=== PATIENT | female | born 1975 | race Caucasian/White ===

== ENCOUNTER 2016-11-09 15:46 | Inpatient (IN) | payer OTHER ==
[2016-11-09] MEDS: ALBUTEROL SO4 2.5/IPRATROPIUM 0.5 INH SOL 3 ML VIAL.NEB. NEB SCH ×7 (16:00→19:32)
--- NOTE | 2016-11-09 16:11 | PDOC ---
History of Present Illness - General Chief Complaint: Asthma Stated Complaint: SOB (ASTHMA) Time Seen by Provider: 11/09/16 16:11 - History of Present Illness Initial Comments: 11/09/16 20:21 41-year-old female with history of poorly controlled asthma, hypertension ( noncompliant) presents with worsening shortness of breath for the past 4 days that became significantly worse on day of admission despite using frequent albuterol MDI the patient board from her mother. In the ER, patient is awake and alert, morbidly obese, tachypneic and tachycardic, hypoxemic with oxygen saturation of 82% on room air requiring Ventimask at 40% FiO2 to maintain oxygen saturation 40%. Patient's received numerous Combivent nebulizers, prednisone-60 mg by mouth as well as 2 g of magnesium sulfate without significant improvement. Patient is also noted to be tachycardic and hypertensive. Chest x-ray reveals cardiomegaly without evidence of acute pulmonary edema. Nitroglycerin drip was initiated for suspected hypertensive emergency. ABG obtained on the Ventimask, revealed hypercapnia with pCO2 of 62 and mild acidosis. Patient was consequently placed on BiPAP with settings of 15/ 7 and 40% FiO2. D-dimer obtained was noted to be elevated and patient received a dose of 110 mg of Lovenox subcutaneous (the benefits of treating suspected PE at this time outweigh the risk of hemorrhage). Patient is unstable at this time for a CTA of chest. Bedside echocardiogram revealed no evidence of pericardial effusion. Will continue with albuterol nebulizers, will continue with nitroglycerin drip, will admit to the ICU. Past History - Past Medical History Allergies/Adverse Reactions: Allergies Allergy/AdvReac Type Severity Reaction Status Date / Time No Known Allergies Allergy Verified 11/09/16 15:48 Home Medications: Ambulatory Orders Albuterol Sulfate Inhaler - [Ventolin HFA Inhaler -] 1 - 2 inh PO Q4H 08/15/14 Salmeterol/Fluticasone [Advair 100Mcg/50Mcg -] 1 inh PO BID 08/15/14 Ceftriaxone [Rocephin -] 2 gm IVPB DAILY #11 vial 08/22/14 Calcitriol [Calcitriol -] 0.5 mcg PO BID #14 capsule 08/23/14 Calcium Acetate [Phoslo -] 1,334 mg PO TIDCM #20 capsule 08/23/14 Diltiazem Cd [Cardizem Cd -] 240 mg PO DAILY #14 cap.cd.24h 08/23/14 Magnesium Oxide 400 mg PO DAILY #7 tablet 08/23/14 Prednisone [Deltasone -] 20 mg PO DAILY #2 tablet 08/23/14 Asthma: Yes - Surgical History Cholecystectomy: Yes - Psycho/Social/Smoking Cessation Hx Anxiety: No Suicidal Ideation: No Smoking Status: No (Both mother and brother smoke.) Smoking History: Never smoked Have you smoked in the past 12 months: No Hx Alcohol Use: No Drug/Substance Use Hx: No Substance Use Type: None Hx Substance Use Treatment: No *Physical Exam - Vital Signs Last Vital Signs Temp Pulse Resp BP Pulse Ox 98.4 F 127 H 28 H 208/128 80 L 11/09/16 15:48 11/09/16 15:48 11/09/16 15:48 11/09/16 15:48 11/09/16 15:48 ED Treatment Course - LABORATORY CBC & Chemistry Diagram: 11/09/16 17:41 11/09/16 17:41 Medical Decision Making - Critical Care Time Total Critical Care Time (minutes): 55 Critical Care Statement: The care of this patient involved high complexity decision making to prevent further life threatening deterioration of the patient 's condition and/or to evalute & treat vital organ system(s) failure or risk of failure. - Medical Decision Making 11/09/16 21:29 Patient reassessed. Patient appears more awake and alert on BiPAP. In title CO2 is noted to be 32. Lung evaluation reveals decreased air entry bilaterally with intermittent and expiratory wheezing. But it is improved from previous evaluation. Patient's oxygen saturation on 40% FiO2 is noted to be 95%. Last blood pressure is noted to be 144/99. Will continue with a nitroglycerin drip. Awaiting transfer to the ICU. *DC/Admit/Observation/Transfer Diagnosis at time of Disposition: Hypocalcemia Status asthmaticus Qualifiers: Asthma severity: severe persistent Qualified Code(s): J45.52 - Severe persistent asthma with status asthmaticus Hypertension Qualifiers: Hypertension type: unspecified Qualified Code(s): I10 - Essential (primary) hypertension
[2016-11-09] MEDS ORDERED: predniSONE 20 MG TABLET (UD) PO ONE (16:22)
--- NOTE | 2016-11-09 16:29 | PDOC ---
History of Present Illness - General Chief Complaint: Asthma Stated Complaint: SOB (ASTHMA) Time Seen by Provider: 11/09/16 16:11 History Source: Patient - History of Present Illness Timing/Duration: reports: other Associated Symptoms: reports: shortness of breath, wheezing. denies: cough Past History - Past Medical History Allergies/Adverse Reactions: Allergies Allergy/AdvReac Type Severity Reaction Status Date / Time No Known Allergies Allergy Verified 11/09/16 15:48 Home Medications: Ambulatory Orders Albuterol Sulfate Inhaler - [Ventolin HFA Inhaler -] 1 - 2 inh PO Q4H 08/15/14 Salmeterol/Fluticasone [Advair 100Mcg/50Mcg -] 1 inh PO BID 08/15/14 Ceftriaxone [Rocephin -] 2 gm IVPB DAILY #11 vial 08/22/14 Calcitriol [Calcitriol -] 0.5 mcg PO BID #14 capsule 08/23/14 Calcium Acetate [Phoslo -] 1,334 mg PO TIDCM #20 capsule 08/23/14 Diltiazem Cd [Cardizem Cd -] 240 mg PO DAILY #14 cap.cd.24h 08/23/14 Magnesium Oxide 400 mg PO DAILY #7 tablet 08/23/14 Prednisone [Deltasone -] 20 mg PO DAILY #2 tablet 08/23/14 Asthma: Yes - Surgical History Cholecystectomy: Yes - Psycho/Social/Smoking Cessation Hx Anxiety: No Suicidal Ideation: No Smoking Status: No (Both mother and brother smoke.) Smoking History: Never smoked Have you smoked in the past 12 months: No Hx Alcohol Use: No Drug/Substance Use Hx: No Substance Use Type: None Hx Substance Use Treatment: No Review of Systems - Review of Systems Constitutional: Yes: Fever Respiratory: Yes: Shortness of Breath, Wheezing. No: Cough Cardiac (ROS): Yes: Chest Tightness *Physical Exam - Vital Signs Last Vital Signs Temp Pulse Resp BP Pulse Ox 98.4 F 127 H 28 H 208/128 80 L 11/09/16 15:48 11/09/16 15:48 11/09/16 15:48 11/09/16 15:48 11/09/16 15:48 - Physical Exam General Appearance: Yes: Appropriately Dressed, Moderate Distress HEENT: positive: Normal Voice Neck: positive: Supple Respiratory/Chest: positive: Wheezing Cardiovascular: positive: Regular Rate, S1, S2 Gastrointestinal/Abdominal: positive: Soft. negative: Tender Integumentary: positive: Dry, Warm Neurologic: positive: Fully Oriented, Alert, Normal Mood/Affect Heart Score/ECG Review - ECG Intrepretation Comment:: 11/09/16 17:40 Sinus tachycardia to 130 on ekg ED Treatment Course - LABORATORY CBC & Chemistry Diagram: 11/10/16 06:05 11/09/16 17:41 - RADIOLOGY Radiology Studies Ordered: Category Date Time Status CHEST PA & LAT [RAD] Stat Radiology 11/09/16 16:23 Ordered Medical Decision Making - Medical Decision Making 11/09/16 16:29 41 yo F, morbid obesity, abundio, asthma w/ 2 admissions in the past 5 years, no intubations, gets 1-2 flares per week, usually triggered by weather/smells, uses neb machine, albuterol and advair, p/w sob w/ tightness and wheezing x 4 days. ?subjective fever 4 days ago, no cough. Using meds at home w/ no relief see exam Asthma flare Hypoxic, tachypneic, tachycardic and unable to speak in full sentences Not moving air well on auscultation -nebs -pred -CXR -reassess 11/09/16 17:17 Pt still symptomatic and hypoxic despite multiple nebs, prednisone and mag. EKG w/ sinus tach and CXR with cardiomegaly. Ventimask placed and labs including d-dimer and ABG pending. Patient will most likely be admitted, ?ICU. Upon chart review, patient was admitted in 2014 with community-acquired pneumonia with severe sepsis, possible small PE and possible component of obesity hypoventilation. Upon discharge, patient was started on diltiazem for HTN and told to follow-up with pulmonary and cardiology admits that she has not done so and is not taking any BP meds currently 11/09/16 18:36 BP 200s/100s. Nitrodrip initiated as d/w ED attg. Hypocalcemia repleted. Abx initiated as per d/w hospitalist. Of note, CXR read as neg for infiltrates. Pending rest of labs prior to admission 11/09/16 18:53 11/09/16 19:01 Pt signed out to DOMINGO Feng pending labs and admission 11/09/16 19:18 11/10/16 13:08 *DC/Admit/Observation/Transfer Diagnosis at time of Disposition: Hypocalcemia Status asthmaticus Qualifiers: Asthma severity: severe persistent Qualified Code(s): J45.52 - Severe persistent asthma with status asthmaticus Hypertension Qualifiers: Hypertension type: unspecified Qualified Code(s): I10 - Essential (primary) hypertension
[2016-11-09] MEDS ORDERED: predniSONE 20 MG TABLET (UD) ONE (16:30)
[2016-11-09] MEDS ORDERED: MAGNESIUM SULF 50% (8.12 MEQ/2 ML-1 GM VIAL) IVPB ONE (17:17)
[2016-11-09] MEDS ORDERED: MAGNESIUM SULF 50% (8.12 MEQ/2 ML-1 GM VIAL) ONE (17:39)
[2016-11-09 18:14] LABS: BASOPHIL 0.4 % (0-2.0); EOSINOPHIL 0.9 % (0-4.5); MCH 25.4 pg (25.7-33.7); MCHC 31.4 g/dl (32.0-36.0); MEAN PLT VOLUME 9.4 fl (7.5-11.1); PLATELET COUNT 212 K/MM3 (134-434); RDW 18.3 % (11.6-15.6); WHITE BLOOD COUNT 14.4 K/mm3 (4.0-10.0)
[2016-11-09] MEDS: NITROGLYCERIN 25MG/D5W 250ML 250 ML IVPB SCH (18:30)
[2016-11-09 18:37] LABS: ALBUMIN 3.3 g/dl (3.4-5.0); ANION GAP 9 (8-16); BILIRUBIN,TOTAL 0.3 mg/dL (0.2-1.0); CO2 33 mmol/L (21-32); CREATININE 0.9 mg/dL (0.55-1.02); GLUCOSE,RANDOM 152 mg/dL (74-106); SGOT/AST 43 U/L (15-37); SGPT/ALT 102 U/L (12-78); TOT PROT 7.9 g/dl (6.4-8.2)
[2016-11-09 18:38] LABS: ALK PHOS 126 U/L (45-117)
[2016-11-09] MEDS ORDERED: NITROGLYCERIN 25MG/D5W 250ML 250 ML IVPB ONE (18:40)
--- NOTE | 2016-11-09 18:41 | HP ---
CHIEF COMPLAINT: "im sick and cant breathe" PCP: none HISTORY OF PRESENT ILLNESS: This is a 41 yo F with PMH of severe asthma, 2 admissions in past 5 yrs, no intubations, 2015 admission for CAP, PE and asthma exacerbation, HTN, and morbid obesity, who presents harjit to severe sob. Patient states that her symptoms started 4 days ago with increased sob and wheezing, moderately alleviated by nebs. This afternoon, her respiratory status suddenly deteriorated w/o any additional new symptoms. She denies f/c, cough, myalgia, malaise, however admits to a few days of runny nose and chills 1 w ago. Her mother, domi whom she lives has also been sick with URI, f/c a week ago. Patient states that she has had asthma for the past 4 yrs, with 1-2 flares per week, triggered by heat, perfume and animal allergies. She does nto follow any doctors and uses her mothers asthma nebs (albuterol and advair PRN). She denies recent travel, leg pain or edema, h/a, focal weakness or numbness, change in vision, chest pain, palpitations, back pain, abd pain, n/v, diarrhea, constipation, melena, hematochezia, dysuria. ER course was notable for: (1)labs (2)cxr, ekg (3) medrol 125, nebs, azitro, rocephin, bipap Recent Travel: denies PAST MEDICAL HISTORY: as above PAST SURGICAL HISTORY: cholecystectomy Social History: lives with mother Smoking: no but second hand smoke exposure form mother Alcohol: denies Drugs: denies Family History: mother asthma Allergies No Known Allergies Allergy (Verified 11/09/16 15:48) HOME MEDICATIONS: Home Medications Medication Instructions Recorded Albuterol Sulfate Inhaler - 1 - 2 inh PO Q4H 08/15/14 [Ventolin HFA Inhaler -] Salmeterol/Fluticasone [Advair 1 inh PO BID 08/15/14 100Mcg/50Mcg -] Ceftriaxone [Rocephin -] 2 gm IVPB DAILY #11 vial 08/22/14 Calcitriol [Calcitriol -] 0.5 mcg PO BID #14 capsule 08/23/14 Calcium Acetate [Phoslo -] 1,334 mg PO TIDCM #20 capsule 08/23/14 Diltiazem Cd [Cardizem Cd -] 240 mg PO DAILY #14 cap.cd.24h 08/23/14 Magnesium Oxide 400 mg PO DAILY #7 tablet 08/23/14 Prednisone [Deltasone -] 20 mg PO DAILY #2 tablet 08/23/14 REVIEW OF SYSTEMS CONSTITUTIONAL: Absent: fever, chills, diaphoresis, generalized weakness HEENT: Absent: difficulty swallowing, mouth swelling, visual changesrhinorrhea, nasal congestion, throat pain, throat swelling, CARDIOVASCULAR: Absent: chest pain, syncope, palpitations, irregular heart rate, lightheadedness , peripheral edema RESPIRATORY: Absent: cough, stridor, hemoptysis GASTROINTESTINAL: Absent: abdominal pain, abdominal distension, nausea, vomiting, diarrhea, constipation, melena, hematochezia GENITOURINARY: Absent: dysuria, MUSCULOSKELETAL: Absent: back pain, neck pain SKIN: Absent: rash, itching, pallor HEMATOLOGIC/IMMUNOLOGIC: Absent: easy bleeding, easy bruising, frequent infections ENDOCRINE: Absent: unexplained weight gain, unexplained weight loss, heat intolerance, cold intolerance NEUROLOGIC: Absent: headache, focal weakness or paresthesias, dizziness PSYCHIATRIC: Absent: anxiety, depression. PHYSICAL EXAMINATION Vital Signs - 24 hr 11/09/16 11/09/16 11/09/16 15:48 16:55 17:00 Temperature 98.4 F Pulse Rate 127 H Pulse Rate [ 132 H Right] Respiratory 28 H 28 H Rate Blood Pressure 208/128 Blood Pressure 204/135 [Right Arm] O2 Sat by Pulse 80 L 82 L 90 L Oximetry (%) 11/09/16 18:34 Temperature Pulse Rate Pulse Rate [ 128 H Right] Respiratory 32 H Rate Blood Pressure Blood Pressure 191/104 [Right Arm] O2 Sat by Pulse 92 L Oximetry (%) GENERAL: Awake, alert, and fully oriented, in no acute distress. HEAD: Normal with no signs of trauma. EYES: Pupils equal, round and reactive to light, extraocular movements intact, sclera anicteric, conjunctiva clear. No lid lag. Fluoroscopic exam deferred sure to lack of equipment EARS, NOSE, THROAT: Moist mucous membranes. NECK: supple without JVD LUNGS: diffusely restricted breath sounds with diffuse expiratory wheezes HEART: tachy rate, reg rythm, normal S1 and S2, possible systolic murmur, difficult to evaluate due to tachycardia ABDOMEN: Soft, obese, nontender, not distended, normoactive bowel sounds, no guarding, no rebound, no masses. No hepatomegaly or splenomegaly. MUSCULOSKELETAL: No CVA tenderness. UPPER EXTREMITIES: 2+ pulses, warm, well-perfused. No cyanosis. No clubbing. No peripheral edema. LOWER EXTREMITIES: 2+ pulses, warm, well-perfused. No calf tenderness. No peripheral edema. NEUROLOGICAL: Cranial nerves II-XII intact. dyspneic speech but not slurred. strenght 4+/5 in all extremities, 2+ talellar reflexes b/l, sensation intact. PSYCHIATRIC: Cooperative. Good eye contact. Appropriate mood and affect. SKIN: Warm, dry Laboratory Results - last 24 hr 11/09/16 17:41 WBC 14.4 H RBC 4.09 Hgb 10.4 L Hct 33.1 MCV 81.0 MCH 25.4 L MCHC 31.4 L RDW 18.3 H Plt Count 212 MPV 9.4 Neutrophils % 79.0 Lymphocytes % 15.1 D Monocytes % 4.6 D Eosinophils % 0.9 D Basophils % 0.4 ASSESSMENT/PLAN: Acute Respiratory failure due to asthma exacerbation -in setting of recent URI and leukocytosis 14.4 with neutrophilic predominance, not on steroids at home -history of possible small PE, CAP (+blood for klebsiella pneumoniae) and component of obesity hypoventilation syndrome during during 2014 admission -supposed to be on home O2 per last admission but has been noncompliant -LABA/LAMA -high dose IV steroids -rocephin, azithromycin -f/u blood and sputum cultures -sepsis protocol -DDIMER 453, matches criteria for CTA chest however patient will not fit in CT scan due to size, will start lovenox -Pulm consult -BIPAP PRN, frequent CO2 monitoring for retention (ABG pCO2 62, Ph 7.3, pO2 74) -Vitals q1h in ICU setting -daily peak flow -incentive spirometer Hypertensive urgency -was hypertensive during last admission as well as tachycardic, may be due to asthma exacerbation -was discharged on diltiazem 240mg daily but has been noncompliant -BP 240's/160's -EKG sinus tach 130, L axis, poor R progression. No strain pattern -cardiomegaly on cxr, may be hypertensive or tacycardic cardiomyopathy, alternatively may be cor pulmunale due to pulm disease -bed side echo shows enlarged RV -no focal neuro findings -cardio consult -on Nitro drip in ED; avoid beta blockers. Consider starting cardizem -f/u cardiac profile -tfts, a1c, lipid profile -TTE -tele monitoring Transaminitis -ast/alt 43/102 -likely fatty liver but wasnt present 2 yrs ago -liver US FEN -no IVF -replete Ca -Na restricted diet Dispo: ICU Problem List - Problem (1) Hypertension Code(s): I10 - ESSENTIAL (PRIMARY) HYPERTENSION Qualifiers: Hypertension type: unspecified Qualified Code(s): I10 - Essential ( primary) hypertension (2) Hypocalcemia Code(s): E83.51 - HYPOCALCEMIA (3) Status asthmaticus Code(s): J45.902 - UNSPECIFIED ASTHMA WITH STATUS ASTHMATICUS Qualifiers: Asthma severity: severe persistent Qualified Code(s): J45.52 - Severe persistent asthma with status asthmaticus (4) Leukocytosis Code(s): D72.829 - ELEVATED WHITE BLOOD CELL COUNT, UNSPECIFIED (5) Hypertensive urgency Code(s): I16.0 - HYPERTENSIVE URGENCY Visit type - Emergency Visit Emergency Visit: Yes Care time: The patient presented to the Emergency Department on the above date and was hospitalized for further evaluation of their emergent condition. - New Patient This patient is new to me today: Yes Date on this admission: 11/09/16 - Critical Care Critical Care patient: Yes Total Critical Care Time (in minutes): 45 Critical Care Statement: The care of this patient involved high complexity decision making to prevent further life threatening deterioration of the patient 's condition and/or to evalute & treat vital organ system(s) failure or risk of failure.
[2016-11-09 18:44] LABS: CALCIUM 6.3 mg/dL (8.5-10.1)
[2016-11-09] MEDS ORDERED: CALCIUM GLUCONATE 10% - 1,000 MG/10 ML VIAL IVPUSH ONE (18:50)
[2016-11-09 19:02] LABS: ARTERIAL BLD GAS O2 SATURATION 93.4 % (90-98.9); ARTERIAL BLOOD GAS BASE EXCESS 6.1 meq/l (-2-2); ARTERIAL BLOOD GAS HCO3 32.9 meq/L (22-26); ARTERIAL BLOOD GAS PO2 74.4 mmHg (80-100); ARTERIAL BLOOD GAS pH 7.34 (7.35-7.45)
[2016-11-09] MEDS ORDERED: methylPREDNISolone NA SUCC 125 MG/2 ML VIAL IVPB ONE (19:04)
[2016-11-09 19:05] LABS: ALLENS TEST POSITIVE; LPM/O2% 40%; PT. ON O2? yes
[2016-11-09] MEDS ORDERED: CEFTRIAXONE 1 GM in DEXTROSE 5%-WATER - 50 ML IVPB ONE (19:05)
[2016-11-09 19:06] LABS: METHEMOGLOBIN 0.3 % (0.4-1.5)
--- NOTE | 2016-11-09 19:07 | PDOC ---
*Physical Exam - Vital Signs Last Vital Signs Temp Pulse Resp BP Pulse Ox 98.4 F 138 H 38 H 198/122 97 11/09/16 15:48 11/09/16 19:00 11/09/16 19:00 11/09/16 19:00 11/09/16 19:42 <Ramakrishna,Boris - Last Filed: 11/09/16 20:13> - Vital Signs Last Vital Signs Temp Pulse Resp BP Pulse Ox 98.4 F 128 H 32 H 191/104 92 L 11/09/16 15:48 11/09/16 18:34 11/09/16 18:34 11/09/16 18:34 11/09/16 18:34 - Physical Exam Comments: 11/09/16 19:50 GENERAL: Well developed, well nourished, morbidly obese. Awake and alert oriented x3. Moderate respiratory distress, tachypnic HEENT: Normocephalic, atraumatic. PERRLA, EOMI. No conjunctival pallor. Sclera are non- icteric. Moist mucous membranes. Oropharynx is clear. NECK: Supple. Full ROM. No JVD. Carotid pulses 2+ and symmetric, without bruits. No thyromegaly. No lymphadenopathy. CARDIOVASCULAR: Regular rate and rhythm. No murmurs, rubs, or gallops. Distal pulses are 2+ and symmetric. PULMONARY: Moderate respiratory distress. Lungs with diminished sounds b/l through all lung antonio with scattered wheezing. Poor aeration to the bases, despite multiple treatments ABDOMINAL: Soft. Non-tender. Non-distended. No rebound or guarding. No organomegaly. Normoactive bowel sounds. MUSCULOSKELETAL Normal range of motion at all joints. No bony deformities or tenderness. No CVA tenderness. EXTREMITIES: No cyanosis. No clubbing. No edema. No calf tenderness. SKIN: Warm and dry. Normal capillary refill. No rashes. No jaundice. NEUROLOGICAL: Alert, awake, appropriate. Cranial nerves 2-12 intact. No deficits to light touch and temperature in face, upper extremities and lower extremities. No motor deficits in the in face, upper extremities and lower extremities. Normoreflexic in the upper and lower extremities. Normal speech. Toes are down- going bilaterally. Gait is normal without ataxia. PSYCHIATRIC: Cooperative. Good eye contact. Appropriate mood and affect. <Amairani Feng - Last Filed: 11/11/16 01:53> ED Treatment Course - LABORATORY CBC & Chemistry Diagram: 11/09/16 17:41 11/09/16 17:41 - ADDITIONAL ORDERS Additional order review: Laboratory Results 11/09/16 11/09/16 11/09/16 19:00 17:41 17:41 D-Dimer 453 H Puncture Site Md puncture ABG pH 7.34 L ABG pCO2 at Pt Temp 62.2 H* ABG pO2 at Pt Temp 74.4 L D ABG HCO3 32.9 H ABG O2 Sat (Measured) 93.4 ABG O2 Content 14.2 L ABG Base Excess 6.1 H Lukas Test Positive Carboxyhemoglobin 1.9 Methemoglobin 0.3 L O2 Delivery Device ventimask Oxygen Flow Rate 40% PEEP 0.0 Sodium Potassium Chloride Carbon Dioxide Anion Gap BUN Creatinine Creat Clearance w eGFR Random Glucose Calcium Total Bilirubin AST ALT Alkaline Phosphatase Total Protein Albumin Serum , Qual Negative 11/09/16 17:41 D-Dimer Puncture Site ABG pH ABG pCO2 at Pt Temp ABG pO2 at Pt Temp ABG HCO3 ABG O2 Sat (Measured) ABG O2 Content ABG Base Excess Lukas Test Carboxyhemoglobin Methemoglobin O2 Delivery Device Oxygen Flow Rate PEEP Sodium 138 Potassium 4.2 D Chloride 96 L Carbon Dioxide 33 H Anion Gap 9 BUN 15 D Creatinine 0.9 Creat Clearance w eGFR > 60 Random Glucose 152 H Calcium 6.3 L* Total Bilirubin 0.3 D AST 43 H D ALT 102 H D Alkaline Phosphatase 126 H D Total Protein 7.9 D Albumin 3.3 L Serum , Qual 11/09/16 17:41 RBC 4.09 MCV 81.0 MCHC 31.4 L RDW 18.3 H MPV 9.4 Neutrophils % 79.0 Lymphocytes % 15.1 D Monocytes % 4.6 D Eosinophils % 0.9 D Basophils % 0.4 - Medications Given in the ED: ED Medications Discontinued Medications Generic Name Dose Route Start Last Admin Trade Name Freq PRN Reason Stop Dose Admin Albuterol/Ipratropium 1 amp 11/09/16 16:30 11/09/16 17:00 Duoneb - NEB 11/09/16 17:16 1 amp Q15M ALICJA Administration Albuterol/Ipratropium 1 amp 11/09/16 18:15 11/09/16 19:32 Duoneb - NEB 11/09/16 19:01 Not Given Q15M ALICJA Magnesium Sulfate 2 gm 11/09/16 17:17 11/09/16 17:50 Magnesium Sulfate IVPB 11/09/16 17:18 2 gm ONCE ONE Administration Prednisone 60 mg 11/09/16 16:22 11/09/16 16:30 Deltasone - PO 11/09/16 16:23 60 mg ONCE ONE Administration <Kelsie Durbinis - Last Filed: 11/09/16 20:13> - LABORATORY CBC & Chemistry Diagram: 11/10/16 06:05 11/09/16 17:41 - ADDITIONAL ORDERS Additional order review: Laboratory Results 11/09/16 11/09/16 19:00 17:41 Puncture Site Md puncture ABG pH 7.34 L ABG pCO2 at Pt Temp 62.2 H* ABG pO2 at Pt Temp 74.4 L D ABG HCO3 32.9 H ABG O2 Sat (Measured) 93.4 ABG O2 Content 14.2 L ABG Base Excess 6.1 H Lukas Test Positive Carboxyhemoglobin 1.9 Methemoglobin 0.3 L O2 Delivery Device ventimask Oxygen Flow Rate 40% PEEP 0.0 Sodium 138 Potassium 4.2 D Chloride 96 L Carbon Dioxide 33 H Anion Gap 9 BUN 15 D Creatinine 0.9 Creat Clearance w eGFR > 60 Random Glucose 152 H Calcium 6.3 L* Total Bilirubin 0.3 D AST 43 H D ALT 102 H D Alkaline Phosphatase 126 H D Total Protein 7.9 D Albumin 3.3 L 11/09/16 17:41 RBC 4.09 MCV 81.0 MCHC 31.4 L RDW 18.3 H MPV 9.4 Neutrophils % 79.0 Lymphocytes % 15.1 D Monocytes % 4.6 D Eosinophils % 0.9 D Basophils % 0.4 - Medications Given in the ED: ED Medications Discontinued Medications Generic Name Dose Route Start Last Admin Trade Name Freq PRN Reason Stop Dose Admin Albuterol/Ipratropium 1 amp 11/09/16 16:30 11/09/16 17:00 Duoneb - NEB 11/09/16 17:16 1 amp Q15M ALICJA Administration Albuterol/Ipratropium 1 amp 11/09/16 18:15 11/09/16 18:15 Duoneb - NEB 11/09/16 19:01 1 amp Q15M ALICJA Administration Magnesium Sulfate 2 gm 11/09/16 17:17 11/09/16 17:50 Magnesium Sulfate IVPB 11/09/16 17:18 2 gm ONCE ONE Administration Prednisone 60 mg 11/09/16 16:22 11/09/16 16:30 Deltasone - PO 11/09/16 16:23 60 mg ONCE ONE Administration <Amairani Feng - Last Filed: 11/11/16 01:53> Medical Decision Making - Medical Decision Making 11/09/16 19:29 Sign out received from DOMINGO Hancock. Patient is a 41-year-old female with an asthma exacerbation. Vital signs are notable for pulse of 127, respiration rate 28, blood pressure of 208/128 and a pulse ox of 80. She has been persistently hypoxemic with elevated blood pressure and tachycardia since her arrival in the ED. Patient is currently on nitro drip, received multiple Combivent and has received multiple doses of steroids. White blood cell count shows elevation to 14. IV antibiotics were started. Patient is beginning to higher on a Ventimask. Call made to respiratory to start patient on BiPAP. Reevaluate 11/09/16 19:36 Patient has an elevated d-dimer; however patient is currently unstable to go to CTA due to her persistent tachycardia, elevated blood pressure and difficulty breathing. We will empirically start Lovenox 110 units at this time given possibility of PE. VBG shows retention of CO2 and low pH of 7.34 11/09/16 20:07 Patient placed on BIPAP. Sating in the 90's. Pt still a concern for respiratory tiring. Will admit to ICU at this time through the hospitalist service. Pt. accepted to the ICU <Amairani Feng - Last Filed: 11/11/16 01:53> *DC/Admit/Observation/Transfer <Denny Durbin - Last Filed: 11/09/16 20:13> <Amairani Feng - Last Filed: 11/11/16 01:53> Diagnosis at time of Disposition: Hypocalcemia Status asthmaticus Qualifiers: Asthma severity: severe persistent Qualified Code(s): J45.52 - Severe persistent asthma with status asthmaticus Hypertension Qualifiers: Hypertension type: unspecified Qualified Code(s): I10 - Essential (primary) hypertension
[2016-11-09] MEDS ORDERED: CEFTRIAXONE 50 ML ONE (19:11)
[2016-11-09] MEDS ORDERED: CALCIUM GLUCONATE 10% - 1,000 MG/10 ML VIAL ONE (19:11)
[2016-11-09] MEDS ORDERED: methylPREDNISolone NA SUCC 125 MG/2 ML VIAL ONE (19:11)
[2016-11-09] MEDS ORDERED: AZITHROMYCIN IVPB 500 MG in DEXTROSE 5%-WATER - 250 ML IVPB ONE (19:17)
[2016-11-09] MEDS ORDERED: ALBUTEROL SO4 0.083% IH SOL 2.5 MG/3 ML VIAL.NEB. NEB ONE ×2 (19:24→19:39)
[2016-11-09] MEDS ORDERED: ENOXAPARIN NA (PORCINE) 100 MG/1 ML DISP.SYRIN SQ ONE ×2 (19:34→19:43)
[2016-11-09] MEDS ORDERED: ENOXAPARIN NA (PORCINE) 30 MG/0.3 ML DISP.SYRIN SQ ONE (19:45)
[2016-11-09] MEDS ORDERED: ALBUTEROL SO4 0.083% IH SOL 2.5 MG/3 ML VIAL.NEB. NEB PRN (20:24)
--- NOTE | 2016-11-09 20:29 | CONSULT ---
Consult Consult Specialty:: PULM/CCM Reason for Consultation:: hypoxia - History of Present Illness Chief Complaint: Shortness of breath, wheezing History of Present Illness: Ms Pappas is a 41 yo woman with PMH of severe asthma including 2 hospitalizations but no intubations in last 5 years as well as morbid obesity and HTN now presenting with 4 days of worsening SOB and wheezing. 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 Patient states that her symptoms started 4 days ago with increased sob and wheezing, moderately alleviated by nebs. Relates URI symptoms preceeding this exacerbation. Denies fever, chest pain, trauma, no new exposures or clear triggers (which for her are heat, perfume and pets/animals). Mother also been sick with URI symptoms. Pt attempts mothers albuterol without significant alleviation. Became acutely more SOB this afternoon prompting ED visit. In ER pt awake, alert, moderate resp distress. Afebrile, tachycardic, hypertensive with SBP in 200s. Hypoxic to 80s on RA> improved somewhat on NC but Pt still hypoxic and tachypneic so transitioned to Venti. Stacked nebs, mag , and solumedrol 125 give. Appeared to be tiring, abg with acute hypercapnea 7.3 /60, started on NIV. Nitroglycerin gtt started for BP control . D-dimer was positive, has hx of possible PE, so was started on treatment dose lovenox. - History Source History Provided By: Patient, Medical Record - Past Medical History Cardio/Vascular: Yes: HTN Pulmonary: Yes: Asthma ...LMP: 08/08/14 - Past Surgical History Past Surgical History: Yes: Cholecystectomy - Alcohol/Substance Use Hx Alcohol Use: No History of Substance Use: reports: None - Smoking History Smoking history: Never smoked Have you smoked in the past 12 months: No - Social History ADL: Family Assistance History of Recent Travel: No Home Medications - Allergies Allergies/Adverse Reactions: Allergies Allergy/AdvReac Type Severity Reaction Status Date / Time No Known Allergies Allergy Verified 11/09/16 15:48 - Home Medications Home Medications: Ambulatory Orders Albuterol Sulfate Inhaler - [Ventolin HFA Inhaler -] 1 - 2 inh PO Q4H 08/15/14 Salmeterol/Fluticasone [Advair 100Mcg/50Mcg -] 1 inh PO BID 08/15/14 Ceftriaxone [Rocephin -] 2 gm IVPB DAILY #11 vial 08/22/14 Calcitriol [Calcitriol -] 0.5 mcg PO BID #14 capsule 08/23/14 Calcium Acetate [Phoslo -] 1,334 mg PO TIDCM #20 capsule 08/23/14 Diltiazem Cd [Cardizem Cd -] 240 mg PO DAILY #14 cap.cd.24h 08/23/14 Magnesium Oxide 400 mg PO DAILY #7 tablet 08/23/14 Prednisone [Deltasone -] 20 mg PO DAILY #2 tablet 08/23/14 Family Disease History - Family Disease History Family Disease History: Heart Disease: Mother (HTN, Asthma), Respiratory: Mother Review of Systems Unable to obtain ROS, reason: 9 pt review - save as HPI Physical Exam Vital Signs: Vital Signs Temperature 98.4 F 11/09/16 15:48 Pulse Rate 138 H 11/09/16 19:00 Respiratory Rate 38 H 11/09/16 19:00 Blood Pressure 198/122 11/09/16 19:00 O2 Sat by Pulse Oximetry (%) 97 11/09/16 19:42 Constitutional: Yes: Well Nourished, Mild Distress, Obese Eyes: Yes: Conjunctiva Clear, EOM Intact, PERRL HENT: Yes: Atraumatic, Normocephalic. No: Rhinnorhea, Thrush Neck: Yes: Supple, Trachea Midline Cardiovascular: Yes: Tachycardia, S1, S2, Other (distant) Respiratory: Yes: Diminished, On BiPap, Poor Air Entry. No: Accessory Muscle Use, Rhonchi Gastrointestinal: Yes: Normal Bowel Sounds, Soft, Abdomen, Obese ...Rectal Exam: Yes: Deferred Renal/: Yes: WNL Breast(s): Yes: WNL Musculoskeletal: Yes: WNL Extremities: Yes: Cool Edema: No Peripheral Pulses WNL: Yes Integumentary: Yes: WNL Neurological: Yes: Alert, Oriented, Cran Nerves II-XII Intact ...Motor Strength: WNL Psychiatric: Yes: WNL Labs: CBC, BMP 11/09/16 17:41 11/09/16 17:41 Imaging - Results Chest X-ray: Image Reviewed (No infiltrate, no obvious pathology) EKG: Image Reviewed (Sinus tachy, no ischemic changes, normal intervals, L axis) Problem List - Problems (1) Hypertensive urgency Code(s): I16.0 - HYPERTENSIVE URGENCY (2) Status asthmaticus Code(s): J45.902 - UNSPECIFIED ASTHMA WITH STATUS ASTHMATICUS Qualifiers: Asthma severity: severe persistent Qualified Code(s): J45.52 - Severe persistent asthma with status asthmaticus (3) Leukocytosis Code(s): D72.829 - ELEVATED WHITE BLOOD CELL COUNT, UNSPECIFIED Qualifiers: Leukocytosis type: leukemoid reaction Qualified Code(s): D72.823 - Leukemoid reaction Assessment/Plan Pt seen and examined in ICU A/ 41 yo woman with HTN, morbid obesity (BMI 45), asthma now with acute on chronic respiratory failure in setting of status asthmaticus requiring NIVPPV possibly 2/2 URI P/ Asthma exacerbation, severe -cont NIV at current settings, repeat ABG - pt is Mallampati IV and morbidly obese, would have high threshold to intubate (spoke to overnight anesthesia, will consider awake fiberoptic) - Albuterol to q2 and wheezing improved - received methylpred and prednisone already, can go to medrol 60 q12 tomorrow with quick taper -appears dehydrated, start gentle fluid -ceftriaxone and azith started in ED, no infiltrate, in CXR clear in am would D/ c -send Viral resp PCR Hypertensive urgency, tachycardia -ntg gtt to SBP 140-150 -start oral agents in am -repeat trop -TTE -no Beta luis m Transaminitis -no clear insult except dehydration -Abd US if cont to rise + D dimer -lovenox 1mg/kg BID, until can clear for PE -VQ -low ext Duplex Prophy: Lovenox, no indication for GI Robinson Shrestha [facility] [id number] Critical Care Time/MDM Note Total Critical Care Time: 35 Critical Care Statement: The care of this patient involved high complexity decision making to prevent further life threatening deterioration of the patient 's condition and/or to evalute & treat vital organ system(s) failure or risk of failure.
--- NOTE | 2016-11-09 20:33 | PN ---
Teaching Attending Note Name of Resident: Connie Painter ATTENDING PHYSICIAN STATEMENT I saw and evaluated the patient. I reviewed the resident's note and discussed the case with the resident. I agree with the resident's findings and plan as documented. SUBJECTIVE: 41 y/o F c/o SOB and wheezing not alleviated with nebulizations. OBJECTIVE: GEN: A&Ox3, NAD HEENT: NC, AT, PERRLA Lungs: b/l wheezing no rhonchi CVS: RRR, S1, S2 Abd: Soft, BS+, NT, ND EXT: No edema, nl ROM CBCD WBC 14.4 K/mm3 (4.0-10.0) H 11/09/16 17:41 RBC 4.09 M/mm3 (3.60-5.2) 11/09/16 17:41 Hgb 10.4 GM/dL (10.7-15.3) L 11/09/16 17:41 Hct 33.1 % (32.4-45.2) 11/09/16 17:41 MCV 81.0 fl (80-96) 11/09/16 17:41 MCHC 31.4 g/dl (32.0-36.0) L 11/09/16 17:41 RDW 18.3 % (11.6-15.6) H 11/09/16 17:41 Plt Count 212 K/MM3 (134-434) 11/09/16 17:41 MPV 9.4 fl (7.5-11.1) 11/09/16 17:41 CMP Sodium 138 mmol/L (136-145) 11/09/16 17:41 Potassium 4.2 mmol/L (3.5-5.1) D 11/09/16 17:41 Chloride 96 mmol/L (98-107) L 11/09/16 17:41 Carbon Dioxide 33 mmol/L (21-32) H 11/09/16 17:41 Anion Gap 9 (8-16) 11/09/16 17:41 BUN 15 mg/dL (7-18) D 11/09/16 17:41 Creatinine 0.9 mg/dL (0.55-1.02) 11/09/16 17:41 Creat Clearance w eGFR > 60 (>60) 11/09/16 17:41 Random Glucose 152 mg/dL (74-106) H 11/09/16 17:41 Calcium 6.3 mg/dL (8.5-10.1) L* 11/09/16 17:41 Total Bilirubin 0.3 mg/dL (0.2-1.0) D 11/09/16 17:41 AST 43 U/L (15-37) H D 11/09/16 17:41 ALT 102 U/L (12-78) H D 11/09/16 17:41 Alkaline Phosphatase 126 U/L (45-117) H D 11/09/16 17:41 Total Protein 7.9 g/dl (6.4-8.2) D 11/09/16 17:41 Albumin 3.3 g/dl (3.4-5.0) L 11/09/16 17:41 ASSESSMENT AND PLAN: Acute hypoxic/hypercapneic respiratory failure secondary to Asthma/ COPD Exacerbation LAMA, LABA, Rocephine and Azithromycin Nebs q6h Prednisone 40mg BID Daily peak flow BIPAP and repeat ABG Elevated LFTS Abdominal USG R/O PE VQ scan in am Lovenox 1mg/kg q12h
[2016-11-09] MEDS ORDERED: AZITHROMYCIN IVPB 250 ML IVPB ONE (20:48)
[2016-11-09] MEDS ORDERED: ACETAMINOPHEN INJECTION 100 ML IVPB ONE (21:03)
[2016-11-09] MEDS ORDERED: ONDANSETRON 4 MG/2 ML VIAL IVPUSH ONE (21:23)
[2016-11-09] MEDS ORDERED: ONDANSETRON 4 MG/2 ML VIAL ONE (21:23)
[2016-11-09] MEDS ORDERED: ACETAMINOPHEN 1000 MG/100 ML VIAL (NON FORMULARY) IVPB ONE (21:29)
[2016-11-09] MEDS ORDERED: ALBUTEROL SO4 2.5/IPRATROPIUM 0.5 INH SOL 3 ML VIAL.NEB. NEB SCH (22:00)
[2016-11-09 22:39] LABS: TROPONIN I 0.03 ng/ml (0.00-0.05)
[2016-11-09 22:50] LABS: ARTERIAL BLD GAS O2 SATURATION 96.9 % (90-98.9); ARTERIAL BLOOD GAS BASE EXCESS 3.9 meq/l (-2-2); ARTERIAL BLOOD GAS HCO3 31.1 meq/L (22-26); ARTERIAL BLOOD GAS PO2 97.4 mmHg (80-100)
[2016-11-09 22:52] LABS: ALLENS TEST POSITIVE; ART PUNCT SITE RIGHT RADIAL; LPM/O2% 50; PT. ON O2? YES; TYPE OF O2 BIPAP; VENT RATE 14; VT/PRESS 15/7
[2016-11-09 22:57] LABS: METHEMOGLOBIN 0.4 % (0.4-1.5)
[2016-11-09] MEDS: CHLORHEXIDINE GLUCONATE 4% CLEANSER FOR DECOLONIZATION TP SCH (23:11)
[2016-11-09] MEDS: BUDESONIDE/FORMETEROL FUMARATE 160/4.5 mcg INHALER IH SCH (23:11)
[2016-11-09] MEDS: MUPIROCIN 2% TOPICAL OINTMENT 22 GM TUBE NS SCH (23:12)
[2016-11-09] MEDS ORDERED: DEXTROSE 5%-0.45% SALINE 1,000 ML IV SCH (23:30)
[2016-11-09 23:45] LABS: TROPONIN I 0.95 ng/ml (0.00-0.05)
[2016-11-10 01:07] VITALS: BMI 42.0
[2016-11-10] MEDS: ALBUTEROL SO4 2.5/IPRATROPIUM 0.5 INH SOL 3 ML VIAL.NEB. NEB SCH ×6 (01:25→21:54)
[2016-11-10 03:51] LABS: ARTERIAL BLD GAS O2 SATURATION 96.9 % (90-98.9); ARTERIAL BLOOD GAS BASE EXCESS 5.3 meq/l (-2-2); ARTERIAL BLOOD GAS HCO3 32.6 meq/L (22-26); ARTERIAL BLOOD GAS PO2 95.4 mmHg (80-100)
[2016-11-10 03:52] LABS: ALLENS TEST POSITIVE; ART PUNCT SITE RIGHT RADIAL
[2016-11-10 03:53] LABS: LPM/O2% 50%; PT. ON O2? YES; TYPE OF O2 BI-PAP; VENT RATE 14; VT/PRESS 15/7
[2016-11-10] MEDS: methylPREDNISolone NA SUCC 40 MG/1 ML VIAL IVPB SCH ×2 (06:08→17:41)
[2016-11-10 06:54] LABS: BASOPHIL 0.1 % (0-2.0); MCH 25.7 pg (25.7-33.7); MCHC 31.1 g/dl (32.0-36.0); MEAN CELL VOLUME 82.6 fl (80-96); MEAN PLT VOLUME 9.4 fl (7.5-11.1); NEUTROPHILS 92.6 % (42.8-82.8); PLATELET COUNT 224 K/MM3 (134-434); RDW 18.5 % (11.6-15.6); WHITE BLOOD COUNT 11.7 K/mm3 (4.0-10.0)
[2016-11-10 07:13] LABS: MAGNESIUM 1.9 mg/dL (1.8-2.4); PHOSPHOROUS 4.3 mg/dL (2.5-4.9)
[2016-11-10 07:24] LABS: CHOLESTEROL 120 mg/dL (50-200); LDL CHOLESTEROL (ONLY SJRH) 66 mg/dL (5-100)
[2016-11-10] MEDS: NITROGLYCERIN 25MG/D5W 250ML 250 ML IVPB SCH (09:17)
[2016-11-10] MEDS: AZITHROMYCIN IVPB 250 ML IVPB SCH (09:23)
[2016-11-10] MEDS: CEFTRIAXONE 50 ML IVPB SCH (09:23)
[2016-11-10] MEDS: PANTOPRAZOLE 20 MG TABLET (FP) PO SCH (09:23)
[2016-11-10] MEDS: MUPIROCIN 2% TOPICAL OINTMENT 22 GM TUBE NS SCH ×2 (09:48→21:09)
[2016-11-10] MEDS: BUDESONIDE/FORMETEROL FUMARATE 160/4.5 mcg INHALER IH SCH ×2 (09:49→21:33)
[2016-11-10] MEDS ORDERED: PNEUMOC 13-VAL CONJ-DIP CRM/PF 0.5 ML DISP.SYRIN IM ONE (10:00)
[2016-11-10 10:19] LABS: TROPONIN I 1.58 ng/ml (0.00-0.05)
--- NOTE | 2016-11-10 10:50 | CON.CARD ---
Consult Consult Specialty:: Cardiology Referred by:: Hospitalist Medicine Reason for Consultation:: Sinus tachycardia - History of Present Illness Chief Complaint: Dyspnea History of Present Illness: Ms Pappas is a 41 yo woman with PMH of severe asthma including 2 hospitalizations, but no intubations in last 5 years, noncompliant with f/u, morbid obesity and HTN now presented with 4 days of worsening SOB and wheezing. Patient states that her symptoms started 4 days ago with increased sob and wheezing, moderately alleviated by nebs, triggered by URI symptoms preceeding this exacerbation. Denies fever, chest pain, trauma, no new exposures or clear triggers (which for her are heat, perfume and pets/animals). Mother also been sick with URI symptoms. Pt attempted mothers albuterol without significant alleviation. Became acutely more SOB prompting ED visit. Patient's sxs improved with treatment, remains on VM. BP controlled on NTG gtt. - History Source History Provided By: Patient Limitations to Obtaining History: No Limitations - Past Medical History Cardio/Vascular: Yes: HTN Pulmonary: Yes: Asthma ...LMP: 08/08/14 - Past Surgical History Past Surgical History: Yes: Cholecystectomy - Alcohol/Substance Use Hx Alcohol Use: No History of Substance Use: reports: None - Smoking History Smoking history: Never smoked Have you smoked in the past 12 months: No - Social History ADL: Family Assistance History of Recent Travel: No Home Medications - Allergies Allergies/Adverse Reactions: Allergies Allergy/AdvReac Type Severity Reaction Status Date / Time No Known Allergies Allergy Verified 11/09/16 15:48 - Home Medications Home Medications: Ambulatory Orders Albuterol Sulfate Inhaler - [Ventolin HFA Inhaler -] 1 - 2 inh PO Q4H 08/15/14 Salmeterol/Fluticasone [Advair 100Mcg/50Mcg -] 1 inh PO BID 08/15/14 Ceftriaxone [Rocephin -] 2 gm IVPB DAILY #11 vial 08/22/14 Calcitriol [Calcitriol -] 0.5 mcg PO BID #14 capsule 08/23/14 Calcium Acetate [Phoslo -] 1,334 mg PO TIDCM #20 capsule 08/23/14 Diltiazem Cd [Cardizem Cd -] 240 mg PO DAILY #14 cap.cd.24h 08/23/14 Magnesium Oxide 400 mg PO DAILY #7 tablet 08/23/14 Prednisone [Deltasone -] 20 mg PO DAILY #2 tablet 08/23/14 Family Disease History - Family Disease History Family Disease History: Heart Disease: Mother (HTN, Asthma), Respiratory: Mother Review of Systems - Review of Systems Respiratory: reports: Exercise Intolerance, SOB Vital Signs: Vital Signs Temperature 98.3 F 11/10/16 06:00 Pulse Rate 114 H 11/10/16 06:00 Respiratory Rate 15 11/10/16 06:00 Blood Pressure 161/94 11/10/16 06:00 O2 Sat by Pulse Oximetry (%) 90 L 11/10/16 10:25 Constitutional: Yes: No Distress, Calm Neck: Yes: Supple Respiratory: Yes: Regular, Diminished, On Venti-Mask Gastrointestinal: Yes: Normal Bowel Sounds, Soft, Abdomen, Obese Cardiovascular: Yes: Tachycardia JVD: No Carotid Bruit: No Heart Sounds: Yes: S1, S2 Murmur: Yes: Systolic Murmur, Grade 1 Edema: Yes Edema: LLE: Trace, RLE: Trace - Other Data Labs, Other Data: CBC, BMP 11/10/16 06:05 Troponin, BNP 11/09/16 11/10/16 11/10/16 22:20 06:05 06:05 Troponin I 0.95 H* 1.58 H* Cancelled Troponin, BNP 11/09/16 11/10/16 11/10/16 22:20 06:05 06:05 Troponin I 0.95 H* 1.58 H* Cancelled ST @ 130 Imaging - Results Chest X-ray: Report Reviewed (NAD) Problem List - Problems (1) Hypertensive urgency Code(s): I16.0 - HYPERTENSIVE URGENCY (2) Status asthmaticus Code(s): J45.902 - UNSPECIFIED ASTHMA WITH STATUS ASTHMATICUS Qualifiers: Asthma severity: severe persistent Qualified Code(s): J45.52 - Severe persistent asthma with status asthmaticus (3) Acute and chronic respiratory failure with hypercapnia Code(s): J96.22 - ACUTE AND CHRONIC RESPIRATORY FAILURE WITH HYPERCAPNIA (4) Sinus tachycardia Code(s): R00.0 - TACHYCARDIA, UNSPECIFIED (5) Demand ischemia Code(s): I24.8 - OTHER FORMS OF ACUTE ISCHEMIC HEART DISEASE (6) Anemia Code(s): D64.9 - ANEMIA, UNSPECIFIED (7) Abnormal LFTs Code(s): R79.89 - OTHER SPECIFIED ABNORMAL FINDINGS OF BLOOD CHEMISTRY Assessment/Plan A/ 41 yo woman with HTN, morbid obesity (BMI 45), asthma now with acute on chronic respiratory failure in setting of status asthmaticus requiring NIVPPV possibly 2/2 URI 1. Acute hypercapneic, hypoxic respiratory failure referable to asthma flare 2. HTN/HCVD with urgency 3. OSAS suspect 4. Anemia 5. Demand ischemia 6. Sinus tachycardia 7. Abnl LFTS due to ischemia P:1. Wean FIO2 as saO2 tolerated 2. IV steroids, BD, DVT prophylaxis, unlikely PE given improvement of sxs with BD 3. Resume Cardizem CD 120 qd and wean NTG gtt as tolerated 4. F/u echocardiogram, monitor trop peak, LFTs trend 5. Outpatient PFTs and PSGS, emphasized importance of compliance 6. Thank you for consultative opportunity
--- NOTE | 2016-11-10 11:15 | PN ---
Teaching Attending Note Name of Resident: Bebeto Owens ATTENDING PHYSICIAN STATEMENT I saw and evaluated the patient. I reviewed the resident's note and discussed the case with the resident. I agree with the resident's findings and plan as documented. SUBJECTIVE: Pt seen and examined in the ICU. Remained on BiPAP overnight, states breathing better today. Denies chest pain. Desaturates with less than 50% FiO2. On nitro gtt for uncontrolled HTN. OBJECTIVE: Last Vital Signs Temp Pulse Resp BP Pulse Ox 98.4 F 111 H 22 144/89 90 L 11/10/16 10:00 11/10/16 10:00 11/10/16 10:00 11/10/16 10:00 11/10/16 10:25 Intake & Output 11/07/16 11/08/16 11/09/16 11/10/16 23:59 23:59 23:59 23:59 Output Total 150 400 Balance -150 -400 Weight 230 lb 3.2 oz 230 lb 3.2 oz Gen: tachypneic at rest Heart: tachycardic, regular Lung: scattered rhonchi, wheezes Abd: soft, obese, nontender Ext: no edema CBC, BMP 11/10/16 06:05 11/09/16 17:41 Active Medications Albuterol Sulfate (Ventolin 0.083% Nebulizer Soln -) 1 amp NEB Q4H PRN PRN Reason: SHORT OF BREATH/WHEEZING Albuterol/Ipratropium (Duoneb -) 1 amp NEB Q4HPO ALICJA Last Admin: 11/10/16 06:26 Dose: 1 amp Budesonide/Formoterol Fumarate (Symbicort 160/4.5mcg -) 1 puff IH BID [facility] Last Admin: 11/10/16 09:49 Dose: 1 inh Chlorhexidine Gluconate (Hibiclens For Decolonization -) 1 applic TP HS ALICJA Last Admin: 11/09/16 23:11 Dose: 1 applic Diltiazem HCl (Cardizem Cd -) 120 mg PO DAILY ALICJA Nitroglycerin/Dextrose (Nitroglycerin 25mg/D5w 250ml) 250 mls @ 6 mls/hr IVPB TITR ALICJA PRN Reason: 10 MCG/MIN Last Admin: 11/10/16 09:17 Dose: 33 mls/hr Ceftriaxone Sodium (Rocephin 1gm Ivpb (Pre-Docked)) 50 mls @ 100 mls/hr IVPB DAILY [facility] Last Admin: 11/10/16 09:23 Dose: 100 mls/hr Azithromycin (Zithromax 500mg Ivpb (Pre-Docked)) 250 mls @ 250 mls/hr IVPB DAILY [facility] Last Admin: 11/10/16 09:23 Dose: 250 mls/hr Dextrose/Sodium Chloride (D5-1/2ns -) 1,000 mls @ 75 mls/hr IV ASDIR [facility] Last Admin: 11/10/16 00:12 Dose: 75 mls/hr Methylprednisolone Sodium Succinate (Solu-Medrol -) 40 mg IVPB Q12H [facility] Last Admin: 11/10/16 06:08 Dose: 40 mg Mupirocin (Bactroban 2% Ointment -) 1 applic NS BID [facility] Stop: 11/14/16 21:59 Last Admin: 11/10/16 09:48 Dose: 1 applic Pantoprazole Sodium (Protonix -) 20 mg PO DAILY [facility] Last Admin: 11/10/16 09:23 Dose: 20 mg ASSESSMENT AND PLAN: Acute on Likely Chronic Hypoxic and Hypercapneic Respiratory Failure requiring NIPPV Acute Asthma Exacerbation likely triggered by URI Likely Obstructive Sleep Apnea/Obesity Hypoventilation Syndrome Hypertensive Urgency +Troponins likely Demand Ischemia Elevated LFTs Morbid Obesity - continue medrol - inhaled bronchodilators standing and PRN - BiPAP to assist in work of breathing - on empiric antibiotics - O2 to keep SpO2 >90% - start PO BP meds - titrate off nitro gtt - trend cardiac enzymes to document peak - echocardiogram - low suspicion for PE as symptoms more suggestive of bronchospasm and hypoxia likely due to V/Q mismatching, can change lovenox to prophylactic dose - outpt PFTs and PSG - continue ICU monitoring critical care time spent in reviewing chart, evaluating patient and formulating plan 35 min
--- NOTE | 2016-11-10 11:54 | EKG ---
Test Reason : Blood Pressure : / mmHG Vent. Rate : 130 BPM Atrial Rate : 130 BPM P-R Int : 136 ms QRS Dur : 070 ms QT Int : 320 ms P-R-T Axes : 062 -04 039 degrees QTc Int : 470 ms SINUS TACHYCARDIA SEPTAL INFARCT (CITED ON OR BEFORE 15-AUG-2014) ABNORMAL ECG WHEN COMPARED WITH ECG OF 16-AUG-2014 10:32, NO SIGNIFICANT CHANGE WAS FOUND Confirmed by JOSE MAYO, THANIA ([id number]) on 11/10/2016 11:54:09 AM Referred By: Confirmed By:THANIA GARCIA MD
--- NOTE | 2016-11-10 11:54 | EKG ---
Test Reason : Blood Pressure : / mmHG Vent. Rate : 117 BPM Atrial Rate : 117 BPM P-R Int : 142 ms QRS Dur : 072 ms QT Int : 360 ms P-R-T Axes : 059 013 059 degrees QTc Int : 502 ms SINUS TACHYCARDIA SEPTAL INFARCT (CITED ON OR BEFORE 15-AUG-2014) ABNORMAL ECG WHEN COMPARED WITH ECG OF 09-NOV-2016 16:35, NO SIGNIFICANT CHANGE WAS FOUND Confirmed by JOSE MAYO, THANIA ([id number]) on 11/10/2016 11:54:35 AM Referred By: MOISES ROGER Confirmed By:THANIA GARCIA MD
--- NOTE | 2016-11-10 13:01 | PN ---
Physical Exam: SUBJECTIVE: Patient seen and examined. Patient states that her breathing is improved, but still labored. Tolerated bipap well overnight. She endorses morning fatigue and waking up during the night at home. OBJECTIVE: Vital Signs Temperature 98.4 F 11/10/16 10:00 Pulse Rate 117 H 11/10/16 12:00 Respiratory Rate 24 11/10/16 12:00 Blood Pressure 148/87 11/10/16 12:00 O2 Sat by Pulse Oximetry (%) 90 L 11/10/16 10:25 GENERAL: The patient is awake, alert, and fully oriented, in no acute distress. HEAD: Normal with no signs of trauma. EYES: PERRL, extraocular movements intact, sclera anicteric, conjunctiva clear. No ptosis. ENT: Ears normal, nares patent, oropharynx clear without exudates, moist mucous membranes. NECK: Trachea midline, full range of motion, supple. LUNGS: Breath sounds equal, expiratory wheezes in all lung antonio. no crackles, no accessory muscle use. HEART: Regular rate and rhythm, S1, S2 without murmur, rub or gallop. ABDOMEN: Soft, nontender, nondistended, normoactive bowel sounds, no guarding, no rebound. EXTREMITIES: 2+ pulses, warm, well-perfused, no edema. NEUROLOGICAL: Cranial nerves II through X grossly intact. Normal speech, gait not observed. PSYCH: Normal mood, normal affect. SKIN: Warm, dry, normal turgor, no rashes or lesions noted Laboratory Results - last 24 hr 11/09/16 11/09/16 11/09/16 22:20 22:45 22:47 WBC RBC Hgb Hct MCV MCH MCHC RDW Plt Count MPV Neutrophils % Lymphocytes % Monocytes % Eosinophils % Basophils % Puncture Site Right radial ABG pH 7.30 L ABG pCO2 at Pt Temp 65.5 H* ABG pO2 at Pt Temp 97.4 D ABG HCO3 31.1 H ABG O2 Sat (Measured) 96.9 ABG O2 Content 13.6 L ABG Base Excess 3.9 H Lukas Test Positive Carboxyhemoglobin 1.7 Methemoglobin 0.4 O2 Delivery Device Bipap Oxygen Flow Rate 50 Vent Mode S/t Vent Rate 14 PEEP Pressure Support Vent 15/7 Hemoglobin A1c % Phosphorus Magnesium Creatine Kinase 173 Creatine Kinase Index 1.2 CK-MB (CK-2) 2.083 Troponin I 0.95 H* Triglycerides Cholesterol Total LDL Cholesterol HDL Cholesterol 11/10/16 11/10/16 11/10/16 03:45 06:05 06:05 WBC 11.7 H RBC 3.42 L Hgb 8.8 L D Hct 28.2 L MCV 82.6 MCH 25.7 MCHC 31.1 L RDW 18.5 H Plt Count 224 MPV 9.4 Neutrophils % 92.6 H Lymphocytes % 6.6 L D Monocytes % 0.7 L D Eosinophils % 0.0 D Basophils % 0.1 Puncture Site Right radial ABG pH 7.30 L ABG pCO2 at Pt Temp 68.4 H* ABG pO2 at Pt Temp 95.4 ABG HCO3 32.6 H ABG O2 Sat (Measured) 96.9 ABG O2 Content 13.1 L ABG Base Excess 5.3 H Lukas Test Positive Carboxyhemoglobin Methemoglobin O2 Delivery Device Bi-pap Oxygen Flow Rate 50% Vent Mode S/t Vent Rate 14 PEEP 0.0 Pressure Support Vent 15/7 Hemoglobin A1c % Phosphorus 4.3 Magnesium 1.9 D Creatine Kinase Creatine Kinase Index CK-MB (CK-2) Troponin I 1.58 H* Triglycerides Cholesterol Total LDL Cholesterol HDL Cholesterol 11/10/16 11/10/16 11/10/16 06:05 06:05 06:05 WBC RBC Hgb Hct MCV MCH MCHC RDW Plt Count MPV Neutrophils % Lymphocytes % Monocytes % Eosinophils % Basophils % Puncture Site ABG pH ABG pCO2 at Pt Temp ABG pO2 at Pt Temp ABG HCO3 ABG O2 Sat (Measured) ABG O2 Content ABG Base Excess Lukas Test Carboxyhemoglobin Methemoglobin O2 Delivery Device Oxygen Flow Rate Vent Mode Vent Rate PEEP Pressure Support Vent Hemoglobin A1c % 6.4 H D Phosphorus Magnesium Creatine Kinase Creatine Kinase Index CK-MB (CK-2) Troponin I Cancelled Triglycerides 144 Cholesterol 120 Total LDL Cholesterol 66 HDL Cholesterol 32 L Active Medications Generic Name Dose Route Start Last Admin Trade Name Freq PRN Reason Stop Dose Admin Albuterol Sulfate 1 amp 11/09/16 20:24 Ventolin 0.083% Nebulizer Soln - NEB Q4H PRN SHORT OF BREATH/WHEEZING Albuterol/Ipratropium 1 amp 11/10/16 02:00 11/10/16 06:26 Duoneb - NEB 1 amp Q4HPO ALICJA Administration Budesonide/Formoterol Fumarate 1 puff 11/09/16 22:00 11/10/16 09:49 Symbicort 160/4.5mcg - IH 1 inh BID ALICJA Administration Chlorhexidine Gluconate 1 applic 11/09/16 22:00 11/09/16 23:11 Hibiclens For Decolonization - TP 1 applic HS ALICJA Administration Diltiazem HCl 120 mg 11/10/16 11:15 11/10/16 11:45 Cardizem Cd - PO 120 mg DAILY ALICJA Administration Enoxaparin Sodium 40 mg 11/11/16 10:00 Lovenox - SQ DAILY ALICJA Nitroglycerin/Dextrose 250 mls @ 6 mls/hr 11/09/16 18:45 11/10/16 09:17 Nitroglycerin 25mg/D5w 250ml IVPB 33 mls/hr TITR ALICJA Administration 10 MCG/MIN Ceftriaxone Sodium 50 mls @ 100 mls/hr 11/10/16 10:00 11/10/16 09:23 Rocephin 1gm Ivpb (Pre-Docked) IVPB 100 mls/hr DAILY ALICJA Administration Azithromycin 250 mls @ 250 mls/hr 11/10/16 10:00 11/10/16 09:23 Zithromax 500mg Ivpb (Pre-Docked) IVPB 250 mls/hr DAILY ALICJA Administration Dextrose/Sodium Chloride 1,000 mls @ 75 mls/hr 11/09/16 23:30 11/10/16 00:12 D5-1/2ns - IV 75 mls/hr ASDIR ALICJA Administration Methylprednisolone Sodium Succinate 40 mg 11/10/16 06:00 11/10/16 06:08 Solu-Medrol - IVPB 40 mg Q12H ALICJA Administration Mupirocin 1 applic 11/09/16 22:00 11/10/16 09:48 Bactroban 2% Ointment - NS 11/14/16 21:59 1 applic BID ALICJA Administration Pantoprazole Sodium 20 mg 11/10/16 10:00 11/10/16 09:23 Protonix - PO 20 mg DAILY ALICJA Administration ASSESSMENT/PLAN: 41 yo f w/PMH severe asthma with 2 hospitalizations (never intubated) presents to the ED complaining of worsening SOB for 4 days. She was saturating in the 80' s in the ED and required eventual upgrade to bipap at 50% FIO2 to maintain saturation. She was admitted to the ICU for further management Neuro -a&ox3, no focal deficits Pulmonary -pmh of severe asthma, not on any medications -required bipap at 50% overnight -currently on 50% venti mask; desaturates with lower FIO2 -Ventolin Q4H -Duoneb Q4H -Solumetrol 40 Q12 -symbicort BID -Zithromax daily -monitor respiratory status -D-Dimers positive -D/c'd theraputic lovenox as there is low suspicion for PE Cardio -BP on admission 208/128 -started cardizem 120 daily -taper off nitro gtt -monitor BP -troponin trending up .95 -> 1.58 -stat EKG shows no acute changes -will trend troponins -f/u echo results GI -elevated LFTs on admisison -abd u/s shows hepatomegaly with steatosis -will continue to monitor lytes FEN -no indication for fluids at this time -will monitor lytes -sodium controlled diet Prophylaxsis -Lovenox 40mg SQ for DVT -protonix 20mg PO Problem List - Problems (1) Abnormal LFTs Code(s): R79.89 - OTHER SPECIFIED ABNORMAL FINDINGS OF BLOOD CHEMISTRY (2) Acute and chronic respiratory failure with hypercapnia Code(s): J96.22 - ACUTE AND CHRONIC RESPIRATORY FAILURE WITH HYPERCAPNIA (3) Acute asthma exacerbation Code(s): J45.901 - UNSPECIFIED ASTHMA WITH (ACUTE) EXACERBATION (4) Hypertensive urgency Code(s): I16.0 - HYPERTENSIVE URGENCY Visit type - Emergency Visit Emergency Visit: Yes ED Registration Date: 11/09/16 Care time: The patient presented to the Emergency Department on the above date and was hospitalized for further evaluation of their emergent condition. - New Patient This patient is new to me today: Yes Date on this admission: 11/10/16 - Critical Care Critical Care patient: Yes Total Critical Care Time (in minutes): 40 Critical Care Statement: The care of this patient involved high complexity decision making to prevent further life threatening deterioration of the patient 's condition and/or to evalute & treat vital organ system(s) failure or risk of failure.
[2016-11-10] MEDS ORDERED: PT OWN MED DRAWER 7, Y5N ONE (13:56)
--- NOTE | 2016-11-10 14:13 | PN ---
Teaching Attending Note Name of Resident: Rosette Azevedo ATTENDING PHYSICIAN STATEMENT I saw and evaluated the patient. I reviewed the resident's note and discussed the case with the resident. I agree with the resident's findings and plan as documented. SUBJECTIVE:states breathing has significantly improved. continues to have non productive cough but improving. states she was not compliant with home medications since last admission and has not seen a physician since then. states she is unable to f/u due to lack of insurance. denies Cp, fever, palpitations, hemoptysis, chills, night sweats. currently saturating 100% on 40% bipap OBJECTIVE: Last Vital Signs Temp Pulse Resp BP Pulse Ox 98.4 F 117 H 24 148/87 90 L 11/10/16 10:00 11/10/16 12:00 11/10/16 12:00 11/10/16 12:00 11/10/16 10:25 General NAD CV S1 S2 tachycardic Lungs diffuse wheezing poor inspiratory effort Abdomen soft NT/ND obese Extremities no pedal edema no calf tenderness ASSESSMENT AND PLAN: 41yo F with PMH ashtma, HTN and morbid obesity presented to the ER with acute hypoxic respiratory failure 1. Acute hypoxic hypercapnic respiratory failure- likely asthma exacerbation due to viral URI. low risk for PE. Wells score 1.5. ddimer high however doppler negative. unable to obtain CTA due to over maximum weight requirement for machine. VQ unlikely to be of much benefit in the setting. currently 100% on bipap. attempt to wean off bipap. clinically improved. cont current steroid dosing. on empiric abx however likely viral etiology. peak flow not attainable at this time. cont nebs 2. Elevated troponin- likely demand ischemia in setting of tachycardia vs hypoxia. troponins trending up. will cont trending up till they peak. echo pending. cardio on board. 3. HTN emergency-end organ damage. (transaminitis and cardiac ischemia). on NTG ggt. re-start home medication cardizem. titrate off drip as tolerated. 4. Acute transaminitis- due to HTN emergency. will trend if does not improve will consider u/s to further evaluate for acute cause. avoid hepatotoxic medications 5. Acute normocytic anemia- likley iron deficiency as RDW elevated. check iron studies. no signs of bleeding. trend hgb 6. Morbid obesity- refer to bariatric surgery as outpatient 7. DVT ppx- start prophylatic dose of lovenox 8. MICU monitoring at this time CC TIME 38 minutes. The care of this patient involved high complexity decision making to prevent further life threatening deterioration of the patient's condition and/or to evalute & treat vital organ system(s) failure or risk of failure.
--- NOTE | 2016-11-10 14:47 | PN ---
Physical Exam: SUBJECTIVE: Patient seen and examined at bedside. Pt in the middle of BiPAP, states that her SOB has much improved. Denies chest or lower extremity pain. OBJECTIVE: Vital Signs Period Temp Pulse Resp BP Sys/Muniz Pulse Ox Last 24 Hr 98.0 F-98.4 F 111-125 15-25 144-169/87-108 90-98 GENERAL: The patient is awake, alert, and fully oriented, in no acute distress. HEAD: Normal with no signs of trauma. EYES: PERRL, extraocular movements intact, sclera anicteric, conjunctiva clear. NECK: Trachea midline, supple. LUNGS: mild expiratory wheezing heard b/l, no rhonchi or crackles appreciated HEART: Tachycardic rate and rhythm, S1, S2 without murmur, rub or gallop. ABDOMEN: Soft, nontender, nondistended, normoactive bowel sounds, no guarding, no rebound EXTREMITIES: 2+ posterior tibial pulses, warm, well-perfused, no edema. NEUROLOGICAL: Cranial nerves II through XII grossly intact. Laboratory Results - last 24 hr 11/09/16 11/09/16 11/09/16 22:20 22:45 22:47 WBC RBC Hgb Hct MCV MCH MCHC RDW Plt Count MPV Neutrophils % Lymphocytes % Monocytes % Eosinophils % Basophils % Puncture Site Right radial ABG pH 7.30 L ABG pCO2 at Pt Temp 65.5 H* ABG pO2 at Pt Temp 97.4 D ABG HCO3 31.1 H ABG O2 Sat (Measured) 96.9 ABG O2 Content 13.6 L ABG Base Excess 3.9 H Lukas Test Positive Carboxyhemoglobin 1.7 Methemoglobin 0.4 O2 Delivery Device Bipap Oxygen Flow Rate 50 Vent Mode S/t Vent Rate 14 PEEP Pressure Support Vent 15/7 Hemoglobin A1c % Phosphorus Magnesium Creatine Kinase 173 Creatine Kinase Index 1.2 CK-MB (CK-2) 2.083 Troponin I 0.95 H* Triglycerides Cholesterol Total LDL Cholesterol HDL Cholesterol 11/10/16 11/10/16 11/10/16 03:45 06:05 06:05 WBC 11.7 H RBC 3.42 L Hgb 8.8 L D Hct 28.2 L MCV 82.6 MCH 25.7 MCHC 31.1 L RDW 18.5 H Plt Count 224 MPV 9.4 Neutrophils % 92.6 H Lymphocytes % 6.6 L D Monocytes % 0.7 L D Eosinophils % 0.0 D Basophils % 0.1 Puncture Site Right radial ABG pH 7.30 L ABG pCO2 at Pt Temp 68.4 H* ABG pO2 at Pt Temp 95.4 ABG HCO3 32.6 H ABG O2 Sat (Measured) 96.9 ABG O2 Content 13.1 L ABG Base Excess 5.3 H Lukas Test Positive Carboxyhemoglobin Methemoglobin O2 Delivery Device Bi-pap Oxygen Flow Rate 50% Vent Mode S/t Vent Rate 14 PEEP 0.0 Pressure Support Vent 15/7 Hemoglobin A1c % Phosphorus 4.3 Magnesium 1.9 D Creatine Kinase Creatine Kinase Index CK-MB (CK-2) Troponin I 1.58 H* Triglycerides Cholesterol Total LDL Cholesterol HDL Cholesterol 11/10/16 11/10/16 11/10/16 06:05 06:05 06:05 WBC RBC Hgb Hct MCV MCH MCHC RDW Plt Count MPV Neutrophils % Lymphocytes % Monocytes % Eosinophils % Basophils % Puncture Site ABG pH ABG pCO2 at Pt Temp ABG pO2 at Pt Temp ABG HCO3 ABG O2 Sat (Measured) ABG O2 Content ABG Base Excess Lukas Test Carboxyhemoglobin Methemoglobin O2 Delivery Device Oxygen Flow Rate Vent Mode Vent Rate PEEP Pressure Support Vent Hemoglobin A1c % 6.4 H D Phosphorus Magnesium Creatine Kinase Creatine Kinase Index CK-MB (CK-2) Troponin I Cancelled Triglycerides 144 Cholesterol 120 Total LDL Cholesterol 66 HDL Cholesterol 32 L Active Medications Generic Name Dose Route Start Last Admin Trade Name Freq PRN Reason Stop Dose Admin Albuterol Sulfate 1 amp 11/09/16 20:24 Ventolin 0.083% Nebulizer Soln - NEB Q4H PRN SHORT OF BREATH/WHEEZING Albuterol/Ipratropium 1 amp 11/10/16 02:00 11/10/16 06:26 Duoneb - NEB 1 amp Q4HPO ALICJA Administration Budesonide/Formoterol Fumarate 1 puff 11/09/16 22:00 11/10/16 09:49 Symbicort 160/4.5mcg - IH 1 inh BID ALICJA Administration Chlorhexidine Gluconate 1 applic 11/09/16 22:00 11/09/16 23:11 Hibiclens For Decolonization - TP 1 applic HS ALICJA Administration Diltiazem HCl 120 mg 11/10/16 11:15 11/10/16 11:45 Cardizem Cd - PO 120 mg DAILY ALICJA Administration Enoxaparin Sodium 40 mg 11/11/16 10:00 Lovenox - SQ DAILY ALICJA Ceftriaxone Sodium 50 mls @ 100 mls/hr 11/10/16 10:00 11/10/16 09:23 Rocephin 1gm Ivpb (Pre-Docked) IVPB 100 mls/hr DAILY ALICJA Administration Azithromycin 250 mls @ 250 mls/hr 11/10/16 10:00 11/10/16 09:23 Zithromax 500mg Ivpb (Pre-Docked) IVPB 250 mls/hr DAILY ALICJA Administration Dextrose/Sodium Chloride 1,000 mls @ 75 mls/hr 11/09/16 23:30 11/10/16 00:12 D5-1/2ns - IV 75 mls/hr ASDIR ALICJA Administration Methylprednisolone Sodium Succinate 40 mg 11/10/16 06:00 11/10/16 06:08 Solu-Medrol - IVPB 40 mg Q12H ALICJA Administration Mupirocin 1 applic 11/09/16 22:00 11/10/16 09:48 Bactroban 2% Ointment - NS 11/14/16 21:59 1 applic BID ALICJA Administration Pantoprazole Sodium 20 mg 11/10/16 10:00 11/10/16 09:23 Protonix - PO 20 mg DAILY ALICJA Administration ASSESSMENT/PLAN: This is a 41 y/o F with PMH of severe asthma, no past intubations, 2015 admission for CAP, asthma exacerbation, HTN, morbid obesity, who presented to the ED d/t severe SOB. Pt admitted for asthma exacerbation. 1. Asthma exacerbation -URI prodrome- possible trigger for asthma, leukocytosis, hx of CAP in 2016 -Non-compliant with meds and 02 that she had been discharged on -Continue symbicort, change Solumedrol to 40 IVPB q6 from q12, Duonebs q4, Ventolin 1 amp Q4 -D/c rocephin, azithromax - CXR not suggestive and possibility of viral CAP, does not need abx -BiPAP PRN -Wean off mask -F/u peak flow 2. R/o PE (low suspicion) -D-dimer 453, since low suspicion, do not need v/q scan 3. Possible demand ischemia secondary to hypoxia -Trend troponins -trops elevated x 2 (0.95, 1.58)- keep trending until it peaks -F/u ECHO 4. Hypocalcemia -Corrected Ca 6.9 -PTH, Ca, phoph ordered to determine etiology -Continue to monitor 5. HTN emergency -Signs of end-organ damage- cardiac, hepatic (elevated ALT, AST) -Nitro drip has been d/c since BP now 161/94 - pt restarted on home med of Cardiazem 120 mg PO daily 6. Anemia -H&H down to 8.8/28.2 from 10.4/33.1 -F/u iron studies, CBC to determine etiology F/E/N -on D 5 04/18 NS -monitor electrolytes, lilian Ca -sodium controlled diet Visit type - Emergency Visit Emergency Visit: No - New Patient This patient is new to me today: No - Critical Care Critical Care patient: No
[2016-11-10 21:07] LABS: TROPONIN I 1.97 ng/ml (0.00-0.05)
[2016-11-10] MEDS: CHLORHEXIDINE GLUCONATE 4% CLEANSER FOR DECOLONIZATION TP SCH (21:32)
[2016-11-11] MEDS: ALBUTEROL SO4 2.5/IPRATROPIUM 0.5 INH SOL 3 ML VIAL.NEB. NEB SCH ×6 (01:58→22:03)
[2016-11-11] MEDS: methylPREDNISolone NA SUCC 40 MG/1 ML VIAL IVPB SCH ×2 (06:11→17:39)
[2016-11-11 06:28] LABS: MCH 25.1 pg (25.7-33.7); MCHC 30.6 g/dl (32.0-36.0); MEAN CELL VOLUME 82.1 fl (80-96); MEAN PLT VOLUME 9.2 fl (7.5-11.1); PLATELET COUNT 252 K/MM3 (134-434); RDW 18.3 % (11.6-15.6); WHITE BLOOD COUNT 22.6 K/mm3 (4.0-10.0)
[2016-11-11 07:12] LABS: ALBUMIN 3.3 g/dl (3.4-5.0); ANION GAP 7 (8-16); CO2 36 mmol/L (21-32); CREATININE 0.9 mg/dL (0.55-1.02); GLUCOSE,RANDOM 157 mg/dL (74-106); SGOT/AST 23 U/L (15-37); SGPT/ALT 65 U/L (12-78)
[2016-11-11 07:28] LABS: ALK PHOS 111 U/L (45-117); BILIRUBIN,TOTAL 0.3 mg/dL (0.2-1.0); TOT PROT 7.5 g/dl (6.4-8.2)
[2016-11-11 07:50] LABS: CALCIUM 6.2 mg/dL (8.5-10.1)
[2016-11-11 07:51] LABS: TROPONIN I 1.91 ng/ml (0.00-0.05)
[2016-11-11] MEDS ORDERED: CALCIUM GLUCONATE 10% - 1,000 MG/10 ML VIAL IVPB ONE ×2 (08:04→20:00)
[2016-11-11] MEDS ORDERED: CALCIUM GLUCONATE 10% - 1,000 MG/10 ML VIAL ONE (08:12)
[2016-11-11 08:23] LABS: PLATELET ESTIMATE ADEQUATE (NORMAL)
[2016-11-11] MEDS: MUPIROCIN 2% TOPICAL OINTMENT 22 GM TUBE NS SCH ×2 (09:01→22:40)
[2016-11-11] MEDS: AZITHROMYCIN IVPB 250 ML IVPB SCH (09:02)
[2016-11-11] MEDS: PANTOPRAZOLE 20 MG TABLET (FP) PO SCH (09:02)
[2016-11-11] MEDS: CEFTRIAXONE 50 ML IVPB SCH (09:02)
[2016-11-11] MEDS: BUDESONIDE/FORMETEROL FUMARATE 160/4.5 mcg INHALER IH SCH ×2 (09:05→22:35)
[2016-11-11] MEDS: ENOXAPARIN NA (PORCINE) 40 MG/0.4 ML DISP.SYRIN SQ SCH (09:08)
--- NOTE | 2016-11-11 09:46 | PN ---
Progress Note, Physician History of Present Illness: Placed on bipap overnight, remains hypoxic requiring VM, dyspnea improving, BP remains elevated. - Current Medication List Current Medications: Active Medications Albuterol Sulfate (Ventolin 0.083% Nebulizer Soln -) 1 amp NEB Q4H PRN PRN Reason: SHORT OF BREATH/WHEEZING Albuterol/Ipratropium (Duoneb -) 1 amp NEB Q4HPO [facility] Last Admin: 11/11/16 05:18 Dose: 1 amp Budesonide/Formoterol Fumarate (Symbicort 160/4.5mcg -) 1 puff IH BID [facility] Last Admin: 11/11/16 09:05 Dose: 1 inh Chlorhexidine Gluconate (Hibiclens For Decolonization -) 1 applic TP HS [facility] Last Admin: 11/10/16 21:32 Dose: 1 applic Diltiazem HCl (Cardizem Cd -) 120 mg PO DAILY [facility] Last Admin: 11/11/16 09:01 Dose: 120 mg Enoxaparin Sodium (Lovenox -) 40 mg SQ DAILY [facility] Last Admin: 11/11/16 09:08 Dose: 40 mg Ceftriaxone Sodium (Rocephin 1gm Ivpb (Pre-Docked)) 50 mls @ 100 mls/hr IVPB DAILY [facility] Last Admin: 11/11/16 09:02 Dose: 100 mls/hr Azithromycin (Zithromax 500mg Ivpb (Pre-Docked)) 250 mls @ 250 mls/hr IVPB DAILY [facility] Last Admin: 11/11/16 09:02 Dose: 250 mls/hr Methylprednisolone Sodium Succinate (Solu-Medrol -) 40 mg IVPB Q12H [facility] Last Admin: 11/11/16 06:11 Dose: 40 mg Mupirocin (Bactroban 2% Ointment -) 1 applic NS BID [facility] Stop: 11/14/16 21:59 Last Admin: 11/11/16 09:01 Dose: 1 applic Pantoprazole Sodium (Protonix -) 20 mg PO DAILY [facility] Last Admin: 11/11/16 09:02 Dose: 20 mg - Objective Vital Signs: Vital Signs Temperature 98.7 F 11/11/16 06:00 Pulse Rate 104 H 11/11/16 09:13 Respiratory Rate 22 11/11/16 09:13 Blood Pressure 176/108 11/11/16 09:13 O2 Sat by Pulse Oximetry (%) 95 11/11/16 07:58 Constitutional: Yes: No Distress, Calm Neck: Yes: Supple Cardiovascular: Yes: Tachycardia Respiratory: Yes: Regular, Diminished, On Venti-Mask Gastrointestinal: Yes: Normal Bowel Sounds, Soft, Abdomen, Obese Edema: No Labs: CBC, BMP 11/11/16 05:15 11/11/16 05:15 - ....Imaging Chest X-ray: Report Reviewed (NAD) EKG: Report Reviewed (Tele: ST) Problem List - Problems (1) Hypertensive urgency Code(s): I16.0 - HYPERTENSIVE URGENCY (2) Status asthmaticus Code(s): J45.902 - UNSPECIFIED ASTHMA WITH STATUS ASTHMATICUS Qualifiers: Asthma severity: severe persistent Qualified Code(s): J45.52 - Severe persistent asthma with status asthmaticus (3) Acute and chronic respiratory failure with hypercapnia Code(s): J96.22 - ACUTE AND CHRONIC RESPIRATORY FAILURE WITH HYPERCAPNIA (4) Sinus tachycardia Code(s): R00.0 - TACHYCARDIA, UNSPECIFIED (5) Demand ischemia Code(s): I24.8 - OTHER FORMS OF ACUTE ISCHEMIC HEART DISEASE (6) Anemia Code(s): D64.9 - ANEMIA, UNSPECIFIED (7) Abnormal LFTs Code(s): R79.89 - OTHER SPECIFIED ABNORMAL FINDINGS OF BLOOD CHEMISTRY (8) Leukocytosis Code(s): D72.829 - ELEVATED WHITE BLOOD CELL COUNT, UNSPECIFIED Qualifiers: Leukocytosis type: leukemoid reaction Qualified Code(s): D72.823 - Leukemoid reaction Assessment/Plan A/ 41 yo woman with HTN, morbid obesity (BMI 45), asthma now with acute on chronic respiratory failure in setting of status asthmaticus requiring NIVPPV possibly 2/2 URI Echo: Normal biventricular size and fxn w/o sig valve abnl 1. Acute on chronic hypercapneic, hypoxic respiratory failure referable to asthma flare triggered by URI requiring NIPPV 2. HTN/HCVD with urgency 3. OSAS/OHS suspect 4. Anemia 5. Demand ischemia 6. Sinus tachycardia 7. Abnl LFTS due to ischemia 8. Leukocytosis referable to steroid use P:1. Wean FIO2 as saO2 tolerated, Bipap nightly as needed 2. IV steroids, BD, empiric abx, DVT prophylaxis, unlikely PE given improvement of sxs with BD 3. Increase Cardizem CD 240 qd and weaned off NTG gtt 4. LFTs and trops have peaked 5. Outpatient PFTs and PSGS, emphasized importance of compliance
--- NOTE | 2016-11-11 11:42 | PN ---
Teaching Attending Note Name of Resident: Rosette Azevedo ATTENDING PHYSICIAN STATEMENT I saw and evaluated the patient. I reviewed the resident's note and discussed the case with the resident. I agree with the resident's findings and plan as documented. SUBJECTIVE:states breathing has improved. tolerated bipap overnight. denies Cp, SOB, fever, chills, N/V/C/D or cough OBJECTIVE: Last Vital Signs Temp Pulse Resp BP Pulse Ox 98.7 F 108 H 22 182/100 94 L 11/11/16 06:00 11/11/16 10:04 11/11/16 10:04 11/11/16 10:04 11/11/16 10:08 General NAD, nu muscle spasm, CV S1 S2 tachycardic no chest wall tenderness, Lungs diffuse wheezing poor inspiratory effort Abdomen soft NT/ND obese Extremities no pedal edema no calf tenderness ASSESSMENT AND PLAN: 41yo F with PMH ashtma, HTN and morbid obesity presented to the ER with acute hypoxic respiratory failure 1. Acute hypoxic hypercapnic respiratory failure- likely asthma exacerbation due to viral URI. informed by RN desaturated to 82% on 4L NC. currently 97% on ventimask. will cont for now. bipap prn and QHS. cont steroids at current dosing. peak flow 100. does not recall baseline peak flow. on empiric abx Ceftriaxone/Azithromycin day 3. will d/c azithro today after dosing. nebs prn. 2. Elevated troponin- likely demand ischemia in setting of tachycardia vs hypoxia. troponins peaked at 1.97. echo with no wall motion abnormalities,. no need to workup at this time. cardio on board. 3. HTN emergency-end organ damage. (transaminitis and cardiac ischemia). now off NTG ggt. on cardizem. increase to improve on control. 4. Hypocalcemia- Corrected Ca 6.76. asymptomatic. had similar episode during last admission but was in setting of VINEET. PTH level and ionized calcium pending. given calcium gluconate x1. then start calcium carbonate po as asymptomatic. 5. Acute transaminitis- due to HTN emergency. resolved. u/s done and negative for acute pathology. 6. Acute normocytic anemia- likley iron deficiency as RDW elevated. iron studies pending. no signs of bleeding. Hgb improved today 7. DM- new onset?. states she was never diabetic but A1c last admission 7.1. here 6.4. typically would have diet and excercise and repeat to see if diabetic medications necessary however since it was elevated in 2015 and morbid obese, start metformin on discharge. dietary consult. 8. Morbid obesity- refer to bariatric surgery as outpatient 9. DVT ppx- lovenox 10. MICU monitoring at this time CC TIME 35 minutes. The care of this patient involved high complexity decision making to prevent further life threatening deterioration of the patient's condition and/or to evalute & treat vital organ system(s) failure or risk of failure.
--- NOTE | 2016-11-11 13:26 | PN ---
Progress Note (short form) - Note Progress Note: Patient seen and examined in the ICU. Remained on NIPPV overnight and now on VM O2. Reports that her breathing feels a little better than yesterday. No chest pain. Currently off NTG drip. OBJECTIVE: Intake & Output 11/08/16 11/09/16 11/10/16 11/11/16 23:59 23:59 23:59 23:59 Intake Total 400 Output Total 150 700 Balance -150 -300 Weight 230 lb 3.2 oz 230 lb 3.2 oz 235 lb 12.8 oz Last Vital Signs Temp Pulse Resp BP Pulse Ox 98.2 F 112 H 22 137/106 94 L 11/11/16 11:44 11/11/16 11:44 11/11/16 11:44 11/11/16 11:44 11/11/16 10:08 Active Medications Albuterol Sulfate (Ventolin 0.083% Nebulizer Soln -) 1 amp NEB Q4H PRN PRN Reason: SHORT OF BREATH/WHEEZING Albuterol/Ipratropium (Duoneb -) 1 amp NEB Q4HPO [facility] Last Admin: 11/11/16 10:10 Dose: 1 amp Budesonide/Formoterol Fumarate (Symbicort 160/4.5mcg -) 1 puff IH BID [facility] Last Admin: 11/11/16 09:05 Dose: 1 inh Calcium Gluconate (Calcium Gluconate 10% -) 1,000 mg IVPB ONCE ONE Stop: 11/11/16 20:01 Chlorhexidine Gluconate (Hibiclens For Decolonization -) 1 applic TP HS [facility] Last Admin: 11/10/16 21:32 Dose: 1 applic Diltiazem HCl (Cardizem Cd -) 240 mg PO DAILY [facility] Enoxaparin Sodium (Lovenox -) 40 mg SQ DAILY [facility] Last Admin: 11/11/16 09:08 Dose: 40 mg Ceftriaxone Sodium (Rocephin 1gm Ivpb (Pre-Docked)) 50 mls @ 100 mls/hr IVPB DAILY [facility] Last Admin: 11/11/16 09:02 Dose: 100 mls/hr Methylprednisolone Sodium Succinate (Solu-Medrol -) 40 mg IVPB Q12H [facility] Last Admin: 11/11/16 06:11 Dose: 40 mg Mupirocin (Bactroban 2% Ointment -) 1 applic NS BID [facility] Stop: 11/14/16 21:59 Last Admin: 11/11/16 09:01 Dose: 1 applic Pantoprazole Sodium (Protonix -) 20 mg PO DAILY [facility] Last Admin: 11/11/16 09:02 Dose: 20 mg Gen: Awake and alert, mildly tachypneic at rest on VM O2 Heart: tachycardic, regular Lung: scattered rhonchi, wheezes Abd: soft, obese, nontender Ext: no edema Laboratory Results - last 24 hr 11/10/16 11/10/16 11/11/16 14:30 19:30 05:15 WBC RBC Hgb Hct MCV MCH MCHC RDW Plt Count MPV Neutrophils % Lymphocytes % Monocytes % Differential Comment Platelet Estimate Sodium 139 Potassium 4.9 Chloride 96 L Carbon Dioxide 36 H Anion Gap 7 L BUN 21 H D Creatinine 0.9 Creat Clearance w eGFR > 60 Random Glucose 157 H Calcium 6.2 L* Total Bilirubin 0.3 AST 23 D ALT 65 D Alkaline Phosphatase 111 Creatine Kinase 186 167 Creatine Kinase Index 2.0 1.6 CK-MB (CK-2) 3.762 H 2.806 Troponin I 1.91 H* 1.97 H* 1.91 H* Total Protein 7.5 Albumin 3.3 L 11/11/16 05:15 WBC 22.6 H D RBC 3.92 Hgb 9.8 L D Hct 32.2 L MCV 82.1 MCH 25.1 L MCHC 30.6 L RDW 18.3 H Plt Count 252 MPV 9.2 Neutrophils % 86.0 H Lymphocytes % 12.0 D Monocytes % 2.0 L D Differential Comment Manual diff done Platelet Estimate Adequate Sodium Potassium Chloride Carbon Dioxide Anion Gap BUN Creatinine Creat Clearance w eGFR Random Glucose Calcium Total Bilirubin AST ALT Alkaline Phosphatase Creatine Kinase Creatine Kinase Index CK-MB (CK-2) Troponin I Total Protein Albumin CXR: no acute pathology ASSESSMENT AND PLAN: Acute on Likely Chronic Hypoxic and Hypercapneic Respiratory Failure requiring NIPPV Acute Asthma Exacerbation likely triggered by URI Likely Obstructive Sleep Apnea/Obesity Hypoventilation Syndrome Hypertensive Urgency +Troponins likely Demand Ischemia Elevated LFTs Morbid Obesity - continue medrol at current dose - inhaled bronchodilators standing and PRN - NIPPV to assist in work of breathing - On Ceftriaxone daily - O2 to keep SpO2 >90% - PO as tolerated - Low suspicion for PE as symptoms more suggestive of bronchospasm and hypoxia likely due to V/Q mismatching - outpt PFTs and PSG - continue ICU monitoring Dr Denny critical care time spent in reviewing chart, evaluating patient and formulating plan 35 min
--- NOTE | 2016-11-11 15:59 | PN ---
Physical Exam: SUBJECTIVE: Patient seen and examined at bedside. No acute events overnight. Pt states that she is able to breathe better today. On BiPAP, used it last night as well. Peak flow 100 this morning. OBJECTIVE: Vital Signs Period Temp Pulse Resp BP Sys/Muniz Pulse Ox Last 24 Hr 98.2 F-98.8 F 94-121 16-24 115-182/72-108 91-95 GENERAL: The patient is awake, alert, and fully oriented, in no acute distress. Feeling better, on BiPAP HEAD: Normal with no signs of trauma. EYES: PERRL, extraocular movements intact, sclera anicteric, conjunctiva clear. NECK: Trachea midline, supple. LUNGS: expiratory wheezes heard b/l. Did not appreciate any rhonchi, wheezes, or crackles. HEART: Regular rate and rhythm, S1, S2 without murmur, rub or gallop. ABDOMEN: Soft, nontender, nondistended, normoactive bowel sounds, no guarding, no rebound, no hepatosplenomegaly, no masses. EXTREMITIES: 2+ posterior tibial pulses, warm, well-perfused, no edema. NEUROLOGICAL: Cranial nerves II through XII grossly intact. Laboratory Results - last 24 hr 11/10/16 11/10/16 11/11/16 14:30 19:30 05:15 WBC RBC Hgb Hct MCV MCH MCHC RDW Plt Count MPV Neutrophils % Lymphocytes % Monocytes % Differential Comment Platelet Estimate Sodium 139 Potassium 4.9 Chloride 96 L Carbon Dioxide 36 H Anion Gap 7 L BUN 21 H D Creatinine 0.9 Creat Clearance w eGFR > 60 Random Glucose 157 H Calcium 6.2 L* Total Bilirubin 0.3 AST 23 D ALT 65 D Alkaline Phosphatase 111 Creatine Kinase 186 167 Creatine Kinase Index 2.0 1.6 CK-MB (CK-2) 3.762 H 2.806 Troponin I 1.91 H* 1.97 H* 1.91 H* Total Protein 7.5 Albumin 3.3 L 11/11/16 05:15 WBC 22.6 H D RBC 3.92 Hgb 9.8 L D Hct 32.2 L MCV 82.1 MCH 25.1 L MCHC 30.6 L RDW 18.3 H Plt Count 252 MPV 9.2 Neutrophils % 86.0 H Lymphocytes % 12.0 D Monocytes % 2.0 L D Differential Comment Manual diff done Platelet Estimate Adequate Sodium Potassium Chloride Carbon Dioxide Anion Gap BUN Creatinine Creat Clearance w eGFR Random Glucose Calcium Total Bilirubin AST ALT Alkaline Phosphatase Creatine Kinase Creatine Kinase Index CK-MB (CK-2) Troponin I Total Protein Albumin Active Medications Generic Name Dose Route Start Last Admin Trade Name Freq PRN Reason Stop Dose Admin Albuterol Sulfate 1 amp 11/09/16 20:24 Ventolin 0.083% Nebulizer Soln - NEB Q4H PRN SHORT OF BREATH/WHEEZING Albuterol/Ipratropium 1 amp 11/10/16 02:00 11/11/16 14:35 Duoneb - NEB 1 amp Q4HPO [facility] Administration Budesonide/Formoterol Fumarate 1 puff 11/09/16 22:00 11/11/16 09:05 Symbicort 160/4.5mcg - IH 1 inh BID [facility] Administration Calcium Carbonate 650 mg 11/11/16 22:00 Calcium Carbonate - PO BID [facility] Chlorhexidine Gluconate 1 applic 11/09/16 22:00 11/10/16 21:32 Hibiclens For Decolonization - TP 1 applic HS [facility] Administration Diltiazem HCl 240 mg 11/11/16 10:22 Cardizem Cd - PO DAILY [facility] Enoxaparin Sodium 40 mg 11/11/16 10:00 11/11/16 09:08 Lovenox - SQ 40 mg DAILY [facility] Administration Ceftriaxone Sodium 50 mls @ 100 mls/hr 11/10/16 10:00 11/11/16 09:02 Rocephin 1gm Ivpb (Pre-Docked) IVPB 100 mls/hr DAILY [facility] Administration Methylprednisolone Sodium Succinate 40 mg 11/10/16 06:00 11/11/16 06:11 Solu-Medrol - IVPB 40 mg Q12H [facility] Administration Mupirocin 1 applic 11/09/16 22:00 11/11/16 09:01 Bactroban 2% Ointment - NS 11/14/16 21:59 1 applic BID [facility] Administration Pantoprazole Sodium 20 mg 11/10/16 10:00 11/11/16 09:02 Protonix - PO 20 mg DAILY [facility] Administration ASSESSMENT/PLAN: This is a 41 y/o F with PMH of severe asthma, no past intubations, 2015 admission for CAP, asthma exacerbation, HTN, morbid obesity, who presented to the ED d/t severe SOB. Pt admitted for asthma exacerbation. 1. Asthma exacerbation -Continue symbicort 1 puff IH BID, Solumedrol 40 IVPB q12, Duonebs 1 amp q4, Ventolin 1 amp Q4 -Azithromax d/c'ed since completed 3 day course, Rocephin- 5 day course needed, continue 3 more days -BiPAP PRN -Wean off mask -F/u peak flow- 100 this morning 2. Possible demand ischemia secondary to hypoxia -Troponin trend- peaked at 1.97 (0.95, 1.97, 1.91) -ECHO- can't exclude wall motion abnormality, but poor study 4. Hypocalcemia -Corrected Ca 6.9 -Pt given Ca gluconate, Ca carbonate BID -PTH, Ca, phoph ordered to determine etiology -Continue to monitor 5. HTN emergency -Signs of end-organ damage- cardiac (ischemia), hepatic (elevated ALT, AST) -Continue Cardiazem 120 mg PO daily -Most recent BP:133/80 6. Anemia -H&H improved from 8.8/28.2 to 9.8/32.2 -F/u iron studies, CBC 7. Hyperglycemia -[employer] Coordinator consulted concerning pre-diabetes -Can d/c on metformin 500mg daily as outpatient, and repeat A1c in 3 months F/E/N -monitor electrolytes, lilian Ca -sodium controlled diet Visit type - Emergency Visit Emergency Visit: No - New Patient This patient is new to me today: No - Critical Care Critical Care patient: Yes Total Critical Care Time (in minutes): 36 Critical Care Statement: The care of this patient involved high complexity decision making to prevent further life threatening deterioration of the patient 's condition and/or to evalute & treat vital organ system(s) failure or risk of failure.
[2016-11-11] MEDS: CHLORHEXIDINE GLUCONATE 4% CLEANSER FOR DECOLONIZATION TP SCH (21:30)
[2016-11-11] MEDS: CALCIUM CARBONATE 650 MG TABLET PO SCH (22:35)
[2016-11-12] MEDS: ALBUTEROL SO4 2.5/IPRATROPIUM 0.5 INH SOL 3 ML VIAL.NEB. NEB SCH ×6 (02:30→23:03)
[2016-11-12 06:07] LABS: SERUM IRON 26 ug/dL (27-159); TOTAL IRON BINDING CAPACITY 369 ug/dL (250-450); UIBC 343 ug/dL (131-425)
[2016-11-12] MEDS: methylPREDNISolone NA SUCC 40 MG/1 ML VIAL IVPB SCH ×2 (06:31→17:42)
[2016-11-12 06:41] LABS: ANION GAP 8 (8-16); CO2 35 mmol/L (21-32); GLUCOSE,RANDOM 162 mg/dL (74-106)
[2016-11-12 06:55] LABS: MCH 25.4 pg (25.7-33.7); MCHC 31.1 g/dl (32.0-36.0); MEAN CELL VOLUME 81.8 fl (80-96); MEAN PLT VOLUME 9.4 fl (7.5-11.1); PLATELET COUNT 245 K/MM3 (134-434); RDW 18.6 % (11.6-15.6); WHITE BLOOD COUNT 19.8 K/mm3 (4.0-10.0)
--- NOTE | 2016-11-12 07:17 | PN ---
Progress Note (short form) - Note Progress Note: states her breathing is much improved. denies CP, cough, palpitiatons, n/V/C/d Current Medications Generic Name Dose Route Start Last Admin Trade Name Freq PRN Reason Stop Dose Admin Albuterol Sulfate 1 amp 11/09/16 20:24 Ventolin 0.083% Nebulizer Soln - NEB Q4H PRN SHORT OF BREATH/WHEEZING Albuterol/Ipratropium 1 amp 11/10/16 02:00 11/12/16 06:36 Duoneb - NEB 1 amp Q4HPO [facility] Administration Budesonide/Formoterol Fumarate 1 puff 11/09/16 22:00 11/11/16 22:35 Symbicort 160/4.5mcg - IH 1 inh BID [facility] Administration Calcium Carbonate 650 mg 11/11/16 22:00 11/11/16 22:35 Calcium Carbonate - PO 650 mg BID [facility] Administration Chlorhexidine Gluconate 1 applic 11/09/16 22:00 11/11/16 21:30 Hibiclens For Decolonization - TP 1 applic HS [facility] Administration Diltiazem HCl 240 mg 11/11/16 10:22 Cardizem Cd - PO DAILY [facility] Enoxaparin Sodium 40 mg 11/11/16 10:00 11/11/16 09:08 Lovenox - SQ 40 mg DAILY [facility] Administration Ceftriaxone Sodium 50 mls @ 100 mls/hr 11/10/16 10:00 11/11/16 09:02 Rocephin 1gm Ivpb (Pre-Docked) IVPB 100 mls/hr DAILY [facility] Administration Methylprednisolone Sodium Succinate 40 mg 11/10/16 06:00 11/12/16 06:31 Solu-Medrol - IVPB 40 mg Q12H [facility] Administration Mupirocin 1 applic 11/09/16 22:00 11/11/16 22:40 Bactroban 2% Ointment - NS 11/14/16 21:59 1 applic BID [facility] Administration Pantoprazole Sodium 20 mg 11/10/16 10:00 11/11/16 09:02 Protonix - PO 20 mg DAILY [facility] Administration Last Vital Signs Temp Pulse Resp BP Pulse Ox 98.1 F 90 21 168/98 94 L 11/12/16 05:00 11/12/16 05:00 11/12/16 05:00 11/12/16 05:00 11/12/16 04:30 General NAD, CV S1 S2 RRR no chest wall tenderness, Lungs poor inspiratory effort, no wheezing or crackles Abdomen soft NT/ND obese Extremities no pedal edema no calf tenderness CBCD WBC 19.8 K/mm3 (4.0-10.0) H 11/12/16 05:20 RBC 3.80 M/mm3 (3.60-5.2) 11/12/16 05:20 Hgb 9.7 GM/dL (10.7-15.3) L 11/12/16 05:20 Hct 31.1 % (32.4-45.2) L 11/12/16 05:20 MCV 81.8 fl (80-96) 11/12/16 05:20 MCHC 31.1 g/dl (32.0-36.0) L 11/12/16 05:20 RDW 18.6 % (11.6-15.6) H 11/12/16 05:20 Plt Count 245 K/MM3 (134-434) 11/12/16 05:20 MPV 9.4 fl (7.5-11.1) 11/12/16 05:20 CMP Sodium 139 mmol/L (136-145) 11/12/16 05:20 Potassium 4.8 mmol/L (3.5-5.1) 11/12/16 05:20 Chloride 96 mmol/L (98-107) L 11/12/16 05:20 Carbon Dioxide 35 mmol/L (21-32) H 11/12/16 05:20 Anion Gap 8 (8-16) 11/12/16 05:20 BUN 31 mg/dL (7-18) H D 11/12/16 05:20 Creatinine 1.0 mg/dL (0.55-1.02) 11/12/16 05:20 Creat Clearance w eGFR > 60 (>60) 11/11/16 05:15 Calcium 7.0 mg/dL (8.5-10.1) L 11/12/16 05:20 Total Bilirubin 0.3 mg/dL (0.2-1.0) 11/11/16 05:15 AST 23 U/L (15-37) D 11/11/16 05:15 ALT 65 U/L (12-78) D 11/11/16 05:15 Alkaline Phosphatase 111 U/L (45-117) 11/11/16 05:15 Total Protein 7.5 g/dl (6.4-8.2) 11/11/16 05:15 Albumin 3.3 g/dl (3.4-5.0) L 11/12/16 05:20 Microbiology 11/10/16 06:05 Blood - Peripheral Venous Blood Culture - Preliminary NO GROWTH OBTAINED AFTER 48 HOURS, INCUBATION TO CONTINUE FOR 3 DAYS. 11/10/16 06:05 Blood - Peripheral Venous Blood Culture - Preliminary NO GROWTH OBTAINED AFTER 48 HOURS, INCUBATION TO CONTINUE FOR 3 DAYS. 11/09/16 23:00 Nasopharyngeal Swab Respiratory Virus (PCR) - Preliminary ASSESSMENT AND PLAN: 41yo F with PMH ashtma, HTN and morbid obesity presented to the ER with acute hypoxic respiratory failure 1. Acute hypoxic hypercapnic respiratory failure- likely asthma exacerbation due to viral URI. peak flow today 100. on bipap overnight. unable to tolerate NC due to desaturations. currently 98% on 50% venti mask. will attempt to de- escalate. cont steroids at current dosing. completed azithro x3days. on ceftriaxone day 4. will d/c all abx tomorrow. encouraged to use incentive spirometer. OOB to chair. nebs prn. 2. Elevated troponin- likely demand ischemia in setting of tachycardia vs hypoxia. troponins peaked at 1.97. echo with no wall motion abnormalities,. no need to workup at this time. cardio on board. 3. HTN emergency-end organ damage. (transaminitis and cardiac ischemia).above goal. will give AM meds now. repeat if remains elevated will increase cardizem and possibly start second agent. 4. Hypocalcemia- Corrected Ca 7.5. asymptomatic. PTH, ionized ca pending. on oral supplementation. 5. Acute transaminitis- due to HTN emergency. resolved. u/s done and negative for acute pathology. 6. Acute normocytic anemia- likley iron deficiency as RDW elevated. iron studies pending. no signs of bleeding. Hgb stable 7. DM- new onset?. switch to diabetic diet. will start metformin. dietary evaluation. 8. Morbid obesity- class III obesity. refer to bariatric surgery as outpatient 9. DVT ppx- lovenox 10. MICU monitoring at this time CC TIME 38 minutes. The care of this patient involved high complexity decision making to prevent further life threatening deterioration of the patient's condition and/or to evalute & treat vital organ system(s) failure or risk of failure. Visit type - Emergency Visit Emergency Visit: Yes ED Registration Date: 11/09/16 Care time: The patient presented to the Emergency Department on the above date and was hospitalized for further evaluation of their emergent condition. - New Patient This patient is new to me today: No - Critical Care Critical Care patient: Yes Total Critical Care Time (in minutes): 38 Critical Care Statement: The care of this patient involved high complexity decision making to prevent further life threatening deterioration of the patient 's condition and/or to evalute & treat vital organ system(s) failure or risk of failure. - Discharge Referral Referred to [facility] No
[2016-11-12 09:15] LABS: PLATELET ESTIMATE ADEQUATE (NORMAL)
[2016-11-12] MEDS: CALCIUM CARBONATE 650 MG TABLET PO SCH ×2 (09:27→23:56)
[2016-11-12] MEDS: MUPIROCIN 2% TOPICAL OINTMENT 22 GM TUBE NS SCH ×2 (09:27→23:58)
[2016-11-12] MEDS: CEFTRIAXONE 50 ML IVPB SCH (09:28)
[2016-11-12] MEDS: ENOXAPARIN NA (PORCINE) 40 MG/0.4 ML DISP.SYRIN SQ SCH (09:28)
[2016-11-12] MEDS: PANTOPRAZOLE 20 MG TABLET (FP) PO SCH (09:28)
[2016-11-12] MEDS: BUDESONIDE/FORMETEROL FUMARATE 160/4.5 mcg INHALER IH SCH ×2 (09:29→23:57)
[2016-11-12] MEDS ORDERED: PT OWN MED DRAWER 7, Y5N ONE (09:44)
--- NOTE | 2016-11-12 11:38 | PN ---
Progress Note (short form) - Note Progress Note: PULM/CRITICAL CARE MEDICINE FOLLOW UP: Progress Note (short form) Progress Note: Patient seen and examined in the ICU. 24 HOUR EVENTS: -OOB to chair, on 50% VM, not wheezing, doing well Current Medications Albuterol Sulfate (Ventolin 0.083% Nebulizer Soln -) 1 amp NEB Q4H PRN PRN Reason: SHORT OF BREATH/WHEEZING Albuterol/Ipratropium (Duoneb -) 1 amp NEB Q4HPO [facility] Last Admin: 11/12/16 10:31 Dose: 1 amp Budesonide/Formoterol Fumarate (Symbicort 160/4.5mcg -) 1 puff IH BID [facility] Last Admin: 11/12/16 09:29 Dose: 1 inh Calcium Carbonate (Calcium Carbonate -) 650 mg PO BID [facility] Last Admin: 11/12/16 09:27 Dose: 650 mg Chlorhexidine Gluconate (Hibiclens For Decolonization -) 1 applic TP HS [facility] Last Admin: 11/11/16 21:30 Dose: 1 applic Diltiazem HCl (Cardizem Cd -) 240 mg PO DAILY [facility] Last Admin: 11/12/16 08:00 Dose: 240 mg Enoxaparin Sodium (Lovenox -) 40 mg SQ DAILY [facility] Last Admin: 11/12/16 09:28 Dose: 40 mg Ceftriaxone Sodium (Rocephin 1gm Ivpb (Pre-Docked)) 50 mls @ 100 mls/hr IVPB DAILY [facility] Last Admin: 11/12/16 09:28 Dose: 100 mls/hr Methylprednisolone Sodium Succinate (Solu-Medrol -) 40 mg IVPB Q12H [facility] Last Admin: 11/12/16 06:31 Dose: 40 mg Mupirocin (Bactroban 2% Ointment -) 1 applic NS BID [facility] Stop: 11/14/16 21:59 Last Admin: 11/12/16 09:27 Dose: 1 applic Pantoprazole Sodium (Protonix -) 20 mg PO DAILY [facility] Last Admin: 11/12/16 09:28 Dose: 20 mg Vital Signs Temp 97.5 F L 11/12/16 10:00 Pulse 94 H 11/12/16 10:30 Resp 20 11/12/16 10:00 BP 141/89 11/12/16 10:00 Pulse Ox 98 11/12/16 10:30 Intake & Output 11/11/16 11/12/16 11/12/16 18:59 06:59 18:59 Intake Total 750 300 50 Balance 750 300 50 Weight 106.594 kg Intake: IVPB 350 50 Oral 400 300 Other: Voiding Method Bedpan Toilet Toilet # Unmeasured Voids Void 1 1 Bowel Movement Yes: medium light brown formed Yes # Bowel Movements 1 Weight Measurement [facility]: neuro: alert HEENT: PERRL lungs: diminished, no wheezing heart: RRR abd: obese, soft ext: no edema, warm CBC, BMP 11/12/16 05:20 11/12/16 05:20 CXR: no acute pathology ASSESSMENT AND PLAN: Acute on Likely Chronic Hypoxic and Hypercapneic Respiratory Failure requiring NIPPV Acute Asthma Exacerbation likely triggered by URI Likely Obstructive Sleep Apnea/Obesity Hypoventilation Syndrome Hypertensive Urgency +Troponins likely Demand Ischemia Elevated LFTs Morbid Obesity - continue solu-medrol today and switch to Pred tomorrow if remains stable - inhaled bronchodilators standing and PRN - Abx - O2 to keep SpO2 >90%, wean to NC today - Continue nocturnal BiPAP - needs sleep study as outpatient - PO as tolerated - Low suspicion for PE as symptoms more suggestive of bronchospasm and hypoxia likely due to V/Q mismatching - outpt PFTs and PSG Transfer to the floor with pulm follow up Thuan Cote Pulm/Critical Care CHLORINATOR [id number]
--- NOTE | 2016-11-12 12:58 | PN ---
Progress Note, Physician Chief Complaint: Events noted Dypspnea persists but states it's better History of Present Illness: Patient was seen and examined. Awake and alert. Chart was reviewed Dyspnea, but improving. Sinus tachycardia Denies chest pain or palpitations. - Current Medication List Current Medications: Active Medications Albuterol Sulfate (Ventolin 0.083% Nebulizer Soln -) 1 amp NEB Q4H PRN PRN Reason: SHORT OF BREATH/WHEEZING Albuterol/Ipratropium (Duoneb -) 1 amp NEB Q4HPO [facility] Last Admin: 11/12/16 10:31 Dose: 1 amp Budesonide/Formoterol Fumarate (Symbicort 160/4.5mcg -) 1 puff IH BID [facility] Last Admin: 11/12/16 09:29 Dose: 1 inh Calcium Carbonate (Calcium Carbonate -) 650 mg PO BID [facility] Last Admin: 11/12/16 09:27 Dose: 650 mg Chlorhexidine Gluconate (Hibiclens For Decolonization -) 1 applic TP HS [facility] Last Admin: 11/11/16 21:30 Dose: 1 applic Diltiazem HCl (Cardizem Cd -) 240 mg PO DAILY [facility] Last Admin: 11/12/16 08:00 Dose: 240 mg Enoxaparin Sodium (Lovenox -) 40 mg SQ DAILY [facility] Last Admin: 11/12/16 09:28 Dose: 40 mg Ceftriaxone Sodium (Rocephin 1gm Ivpb (Pre-Docked)) 50 mls @ 100 mls/hr IVPB DAILY [facility] Last Admin: 11/12/16 09:28 Dose: 100 mls/hr Methylprednisolone Sodium Succinate (Solu-Medrol -) 40 mg IVPB Q12H [facility] Last Admin: 11/12/16 06:31 Dose: 40 mg Mupirocin (Bactroban 2% Ointment -) 1 applic NS BID [facility] Stop: 11/14/16 21:59 Last Admin: 11/12/16 09:27 Dose: 1 applic Pantoprazole Sodium (Protonix -) 20 mg PO DAILY [facility] Last Admin: 11/12/16 09:28 Dose: 20 mg - Objective Vital Signs: Vital Signs Temperature 97.2 F L 11/12/16 12:00 Pulse Rate 115 H 11/12/16 12:00 Respiratory Rate 21 11/12/16 12:00 Blood Pressure 148/100 11/12/16 12:00 O2 Sat by Pulse Oximetry (%) 98 11/12/16 10:30 Neck: Yes: Supple Cardiovascular: Yes: Regular Rate and Rhythm, Tachycardia, S1, S2 Respiratory: Yes: Diminished Gastrointestinal: Yes: Normal Bowel Sounds, Soft, Abdomen, Obese. No: Tenderness Edema: No Labs: CBC, BMP 11/12/16 05:20 11/12/16 05:20 Problem List - Problems (1) Abnormal LFTs Code(s): R79.89 - OTHER SPECIFIED ABNORMAL FINDINGS OF BLOOD CHEMISTRY (2) Acute and chronic respiratory failure with hypercapnia Code(s): J96.22 - ACUTE AND CHRONIC RESPIRATORY FAILURE WITH HYPERCAPNIA (3) Acute asthma exacerbation Code(s): J45.901 - UNSPECIFIED ASTHMA WITH (ACUTE) EXACERBATION (4) Anemia Code(s): D64.9 - ANEMIA, UNSPECIFIED (5) Demand ischemia Code(s): I24.8 - OTHER FORMS OF ACUTE ISCHEMIC HEART DISEASE (6) Hypertension Code(s): I10 - ESSENTIAL (PRIMARY) HYPERTENSION Qualifiers: Hypertension type: unspecified Qualified Code(s): I10 - Essential ( primary) hypertension (7) Sinus tachycardia Code(s): R00.0 - TACHYCARDIA, UNSPECIFIED Assessment/Plan 1. Acute on chronic hypercapneic, hypoxic respiratory failure referable to asthma flare triggered by URI and requiring CPAP as indicated 2. HTN/HCVD with urgency 3. Suspect OSAS 4. Anemia 5. Demand ischemia 6. Sinus tachycardia 7. Abnormal LFTS due to demand ischemia 8. Leukocytosis referable to steroid use PLAN: 1. Continue present pulmonary treatment including CPAP and O2 2. IV steroids, bronchodilator, empiric antibiotics and continue DVT prophylaxis 3. Continue Cardizem CD, but consider increasing it to 300 mg once a day 4. Trend LFTs and trops Further plans are to follow Vern Guerra MD
[2016-11-12] MEDS ORDERED: dilTIAZem HCL 60 MG TABLET (FP) PO ONE (12:59)
[2016-11-12] MEDS: CHLORHEXIDINE GLUCONATE 4% CLEANSER FOR DECOLONIZATION TP SCH (22:13)
[2016-11-13] MEDS: ALBUTEROL SO4 2.5/IPRATROPIUM 0.5 INH SOL 3 ML VIAL.NEB. NEB SCH ×6 (02:29→22:24)
[2016-11-13] MEDS: methylPREDNISolone NA SUCC 40 MG/1 ML VIAL IVPB SCH ×2 (06:13→18:00)
[2016-11-13 06:21] LABS: MCH 25.5 pg (25.7-33.7); MCHC 31.6 g/dl (32.0-36.0); MEAN CELL VOLUME 80.7 fl (80-96); MEAN PLT VOLUME 9.1 fl (7.5-11.1); PLATELET COUNT 249 K/MM3 (134-434); RDW 18.9 % (11.6-15.6); WHITE BLOOD COUNT 16.9 K/mm3 (4.0-10.0)
[2016-11-13 06:46] LABS: ALBUMIN 3.1 g/dl (3.4-5.0); ANION GAP 7 (8-16); CO2 37 mmol/L (21-32); GLUCOSE,RANDOM 168 mg/dL (74-106); MAGNESIUM 2.2 mg/dL (1.8-2.4); PHOSPHOROUS 4.6 mg/dL (2.5-4.9)
[2016-11-13 06:48] LABS: FERRITIN 20.288 ng/ml (6.9-282.5)
[2016-11-13 06:59] LABS: CALCIUM 6.6 mg/dL (8.5-10.1)
[2016-11-13] MEDS ORDERED: PT OWN MED DRAWER 7, Y5N ONE ×3 (08:16→21:16)
--- NOTE | 2016-11-13 08:21 | PN ---
Teaching Attending Note Name of Resident: Rosette Azevedo ATTENDING PHYSICIAN STATEMENT I saw and evaluated the patient. I reviewed the resident's note and discussed the case with the resident. I agree with the resident's findings and plan as documented. SUBJECTIVE:states breathing has improved. slept last night without bipap and said she slept well. denies CP, fever, chills, cough, N/V/c/D OBJECTIVE: Last Vital Signs Temp Pulse Resp BP Pulse Ox 97.9 F 98 H 24 159/100 95 11/13/16 06:00 11/13/16 06:00 11/13/16 06:00 11/13/16 06:00 11/13/16 06:27 General NAD CV S1 S2 RRR no murmur/rub/ga,llop Lungs CTA. decreased breath sounds, poor inspiratory effort ASSESSMENT AND PLAN: 41yo F with PMH ashtma, HTN and morbid obesity presented to the ER with acute hypoxic respiratory failure 1. Acute hypoxic hypercapnic respiratory failure- likely asthma exacerbation due to viral URI. no peak flow available today. tolerated intermittent periods of NC at high rates (4-5L) and also on 40% face mask. will cont to titrate oxygen requirements as tolerated. can likely decrease steroids today. Ceftriaxone day 5 today and then will stop abx. encouraged to use incentive spirometer. OOB to chair. nebs prn. 2. Elevated troponin- likely demand ischemia in setting of tachycardia vs hypoxia. troponins peaked at 1.97. echo with no wall motion abnormalities,. no need to workup at this time. cardio on board. 3. HTN emergency-end organ damage. (transaminitis and cardiac ischemia) .improved. cardizem increased yesterday to 300mg. will monitor. 4. Hypocalcemia- Corrected Ca 7.3. asymptomatic. PTH, ionized ca pending. on oral supplementation. 5. Acute transaminitis- due to HTN emergency. resolved. u/s done and negative for acute pathology. 6. Acute normocytic anemia- iron deficiency anemia. start iron supplementation. will need iron studies repeated in 3 months. 7. DM- new onset?. diabetic diet. will start metformin. dietary evaluation. 8. Morbid obesity- class III obesity. refer to bariatric surgery as outpatient 9. DVT ppx- lovenox 10. can be transferred to medical floors CC TIME 40 minutes. The care of this patient involved high complexity decision making to prevent further life threatening deterioration of the patient's condition and/or to evalute & treat vital organ system(s) failure or risk of failure.
[2016-11-13 08:35] LABS: CALCIUM 5.7 mg/dL (8.7-10.2)
[2016-11-13 08:38] LABS: PLATELET ESTIMATE ADEQUATE (NORMAL)
[2016-11-13] MEDS: MUPIROCIN 2% TOPICAL OINTMENT 22 GM TUBE NS SCH ×2 (09:28→22:30)
[2016-11-13] MEDS: CALCIUM CARBONATE 650 MG TABLET PO SCH ×2 (09:38→21:48)
[2016-11-13] MEDS: PANTOPRAZOLE 20 MG TABLET (FP) PO SCH (09:38)
[2016-11-13] MEDS: ENOXAPARIN NA (PORCINE) 40 MG/0.4 ML DISP.SYRIN SQ SCH (09:38)
[2016-11-13] MEDS: CEFTRIAXONE 50 ML IVPB SCH (09:39)
[2016-11-13] MEDS: BUDESONIDE/FORMETEROL FUMARATE 160/4.5 mcg INHALER IH SCH ×2 (09:39→21:57)
--- NOTE | 2016-11-13 11:02 | PN ---
Progress Note, Physician Chief Complaint: Events noted Dypspnea persists but states it's better Hypertensive History of Present Illness: Patient was seen and examined. Awake and alert. Chart was reviewed Dyspnea improving. Sinus tachycardia Denies chest pain or palpitations. BP remains elevated - Current Medication List Current Medications: Active Medications Albuterol Sulfate (Ventolin 0.083% Nebulizer Soln -) 1 amp NEB Q4H PRN PRN Reason: SHORT OF BREATH/WHEEZING Albuterol/Ipratropium (Duoneb -) 1 amp NEB Q4HPO [facility] Last Admin: 11/13/16 06:27 Dose: 1 amp Budesonide/Formoterol Fumarate (Symbicort 160/4.5mcg -) 1 puff IH BID [facility] Last Admin: 11/13/16 09:39 Dose: 1 inh Calcium Carbonate (Calcium Carbonate -) 650 mg PO BID [facility] Last Admin: 11/13/16 09:38 Dose: 650 mg Chlorhexidine Gluconate (Hibiclens For Decolonization -) 1 applic TP HS [facility] Last Admin: 11/12/16 22:13 Dose: 1 applic Diltiazem HCl (Cardizem Cd -) 300 mg PO DAILY [facility] Last Admin: 11/13/16 09:40 Dose: 300 mg Docusate Sodium (Colace -) 100 mg PO DAILY [facility] Enoxaparin Sodium (Lovenox -) 40 mg SQ DAILY [facility] Last Admin: 11/13/16 09:38 Dose: 40 mg Ferrous Sulfate (Feosol -) 325 mg PO BIDWM [facility] Metformin HCl (Glucophage -) 500 mg PO BID@0700,1630 [facility] Methylprednisolone Sodium Succinate (Solu-Medrol -) 40 mg IVPB Q12H [facility] Stop: 11/13/16 23:59 Last Admin: 11/13/16 06:13 Dose: 40 mg Mupirocin (Bactroban 2% Ointment -) 1 applic NS BID [facility] Stop: 11/14/16 21:59 Last Admin: 11/13/16 09:28 Dose: 1 applic Pantoprazole Sodium (Protonix -) 20 mg PO DAILY [facility] Last Admin: 11/13/16 09:38 Dose: 20 mg Prednisone (Deltasone -) 40 mg PO DAILY [facility] Senna (Senna -) 1 tab PO HS [facility] - Objective Vital Signs: Vital Signs Temperature 98.2 F 11/13/16 10:00 Pulse Rate 100 H 11/13/16 10:00 Respiratory Rate 24 11/13/16 10:00 Blood Pressure 180/95 11/13/16 10:00 O2 Sat by Pulse Oximetry (%) 92 L 11/13/16 08:00 Neck: Yes: Supple Cardiovascular: Yes: Regular Rate and Rhythm, Tachycardia, S1, S2 Respiratory: Yes: Diminished, On Nasal O2 Gastrointestinal: Yes: Normal Bowel Sounds, Soft, Abdomen, Obese. No: Tenderness Edema: No Labs: CBC, BMP 11/13/16 05:20 11/13/16 05:20 Problem List - Problems (1) Abnormal LFTs Code(s): R79.89 - OTHER SPECIFIED ABNORMAL FINDINGS OF BLOOD CHEMISTRY (2) Acute and chronic respiratory failure with hypercapnia Code(s): J96.22 - ACUTE AND CHRONIC RESPIRATORY FAILURE WITH HYPERCAPNIA (3) Acute asthma exacerbation Code(s): J45.901 - UNSPECIFIED ASTHMA WITH (ACUTE) EXACERBATION (4) Anemia Code(s): D64.9 - ANEMIA, UNSPECIFIED (5) Demand ischemia Code(s): I24.8 - OTHER FORMS OF ACUTE ISCHEMIC HEART DISEASE (6) Hypertension Code(s): I10 - ESSENTIAL (PRIMARY) HYPERTENSION Qualifiers: Hypertension type: unspecified Qualified Code(s): I10 - Essential ( primary) hypertension (7) Sinus tachycardia Code(s): R00.0 - TACHYCARDIA, UNSPECIFIED Assessment/Plan 1. Acute on chronic hypercapneic, hypoxic respiratory failure referable to asthma flare triggered by URI and requiring CPAP as indicated 2. HTN/HCVD with urgency 3. Suspect OSAS 4. Anemia 5. Demand ischemia 6. Sinus tachycardia 7. Abnormal LFTS due to demand ischemia 8. Leukocytosis referable to steroid use PLAN: 1. Continue present pulmonary treatment including CPAP and O2 2. IV steroids, bronchodilator, empiric antibiotics and continue DVT prophylaxis 3. Continue Cardizem CD and add ACEI or ARB and uptitrate 4. Trend LFTs and troponin Further plans are to follow Vern Guerra MD
[2016-11-13] MEDS ORDERED: QUINAPRIL HCL 20 MG TABLET (FP) PO SCH ×2 (11:15→12:30)
--- NOTE | 2016-11-13 11:15 | PN ---
Physical Exam: SUBJECTIVE: Patient seen and examined. Pt on 40% venti mask this AM. She states that she is feeling less short of breath today, and was OOB yesterday. As per pt , her peak flow yesterday was 100. Denies chest pain or lower extremity pain. OBJECTIVE: Vital Signs Period Temp Pulse Resp BP Sys/Muniz Pulse Ox Last 24 Hr 97.2 F-98.2 F 90-115 18-28 132-183/67-110 91-98 GENERAL: The patient is awake, alert, and fully oriented, in no acute distress. HEAD: Normal with no signs of trauma. EYES: PERRL, extraocular movements intact, sclera anicteric, conjunctiva clear. ENT: oropharynx clear without exudates, moist mucous membranes. NECK: Trachea midline, supple. LUNGS: Breath sounds equal, clear to auscultation bilaterally, mild wheezes heard b/l improved HEART: Regular rate and rhythm, S1, S2 without murmur, rub or gallop. ABDOMEN: Soft, nontender, nondistended, normoactive bowel sounds, no guarding, no rebound EXTREMITIES: 2+ posterior tibial pulses, warm, well-perfused, no edema. NEUROLOGICAL: Cranial nerves II through XII grossly intact. Laboratory Results - last 24 hr 11/10/16 11/12/16 11/13/16 06:05 05:20 05:20 WBC 16.9 H RBC 3.92 Hgb 10.0 L Hct 31.7 L MCV 80.7 MCH 25.5 L MCHC 31.6 L RDW 18.9 H Plt Count 249 MPV 9.1 Neutrophils % 83.0 H Lymphocytes % 13.0 D Monocytes % 3.0 L D Myelocytes 1 Nucleated RBCs 1 H Differential Comment Manual diff done Platelet Estimate Adequate Sodium 139 Potassium 4.8 Chloride 96 L Carbon Dioxide 35 H Anion Gap 8 BUN 31 H D Creatinine 1.0 Random Glucose 162 H Calcium 5.7 L* 7.0 L Phosphorus Magnesium Ferritin 22.500 Albumin PTH Intact 12 L PTH Intact Intraop 0 m 11/13/16 11/13/16 11/13/16 05:20 05:20 05:20 WBC RBC Hgb Hct MCV MCH MCHC RDW Plt Count MPV Neutrophils % Lymphocytes % Monocytes % Myelocytes Nucleated RBCs Differential Comment Platelet Estimate Sodium 140 Potassium 4.2 Chloride 96 L Carbon Dioxide 37 H Anion Gap 7 L BUN 30 H Creatinine 1.0 Random Glucose 168 H Calcium 6.6 L* Phosphorus 4.6 Cancelled Magnesium 2.2 Cancelled Ferritin 20.288 Cancelled Albumin 3.1 L Cancelled PTH Intact PTH Intact Intraop 0 m Active Medications Generic Name Dose Route Start Last Admin Trade Name Freq PRN Reason Stop Dose Admin Albuterol Sulfate 1 amp 11/09/16 20:24 Ventolin 0.083% Nebulizer Soln - NEB Q4H PRN SHORT OF BREATH/WHEEZING Albuterol/Ipratropium 1 amp 11/10/16 02:00 11/13/16 06:27 Duoneb - NEB 1 amp Q4HPO [facility] Administration Budesonide/Formoterol Fumarate 1 puff 11/09/16 22:00 11/13/16 09:39 Symbicort 160/4.5mcg - IH 1 inh BID [facility] Administration Calcium Carbonate 650 mg 11/11/16 22:00 11/13/16 09:38 Calcium Carbonate - PO 650 mg BID [facility] Administration Chlorhexidine Gluconate 1 applic 11/09/16 22:00 11/12/16 22:13 Hibiclens For Decolonization - TP 1 applic HS [facility] Administration Diltiazem HCl 300 mg 11/12/16 13:00 11/13/16 09:40 Cardizem Cd - PO 300 mg DAILY [facility] Administration Docusate Sodium 100 mg 11/14/16 10:00 Colace - PO DAILY [facility] Enoxaparin Sodium 40 mg 11/11/16 10:00 11/13/16 09:38 Lovenox - SQ 40 mg DAILY [facility] Administration Ferrous Sulfate 325 mg 11/13/16 17:30 Feosol - PO BIDWM [facility] Metformin HCl 500 mg 11/13/16 16:30 Glucophage - PO BID@0700,1630 [facility] Methylprednisolone Sodium Succinate 40 mg 11/10/16 06:00 11/13/16 06:13 Solu-Medrol - IVPB 11/13/16 23:59 40 mg Q12H [facility] Administration Mupirocin 1 applic 11/09/16 22:00 11/13/16 09:28 Bactroban 2% Ointment - NS 11/14/16 21:59 1 applic BID [facility] Administration Pantoprazole Sodium 20 mg 11/10/16 10:00 11/13/16 09:38 Protonix - PO 20 mg DAILY [facility] Administration Prednisone 40 mg 11/14/16 10:00 Deltasone - PO DAILY [facility] Senna 1 tab 11/13/16 22:00 Senna - PO HS [facility] ASSESSMENT/PLAN: This is a 41 y/o F with PMH of severe asthma, no past intubations, 2014 admission for CAP, asthma exacerbation, HTN, morbid obesity, who presented to the ED d/t severe SOB. Pt admitted for asthma exacerbation. # Acute resp failure secondary to acute asthma exacerbation -Continue symbicort 1 puff IH BID, Duonebs 1 amp q4, Ventolin 1 amp Q4 -Today is last day of Solumedrol 40 IVPB q12, transitioning to Prednisone 40 mg PO daily starting tomorrow -Azithromax d/c'ed since completed 3 day course -Today last day of Rocephin, will be d/c (5 day course completed) -BiPAP PRN -Peak flow yesterday: 100 # HTN emergency -Signs of end-organ damage- cardiac (ischemia), hepatic (elevated ALT, AST) -BP this AM 159/100 -Continue Cardiazem 300 mg PO daily -Will monitor BP, if does not improve may need to add second agent #Hypocalcemia -Corrected Ca today 7.3 - improved from 6.9 -Continue calcium carbonate 650mg PO BID #Anemia -H&H improved to 02/14.7 -Iron saturation 7, iron deficiency anemia -Supplementation with Ferrous Sulfate 325 mg PO BID -Will educate pt on possibility of dark stools from iron, constipation #Hyperglycemia -Dish Person consulted concerning pre-diabetes -Started on metformin 500mg PO BID # Demand ischemia secondary to hypoxia -Troponin trend- peaked at 1.97 (0.95, 1.97, 1.91) -ECHO- can't exclude wall motion abnormality, but poor study F/E/N -Pt improving in ICU, for transfer to [address] [place] [address] today -monitor electrolytes -sodium controlled diet Visit type - Emergency Visit Emergency Visit: No - New Patient This patient is new to me today: No - Critical Care Critical Care patient: Yes Total Critical Care Time (in minutes): 32 Critical Care Statement: The care of this patient involved high complexity decision making to prevent further life threatening deterioration of the patient 's condition and/or to evalute & treat vital organ system(s) failure or risk of failure.
[2016-11-13] MEDS ORDERED: ALBUTEROL SO4 0.083% IH SOL 2.5 MG/3 ML VIAL.NEB. NEB PRN (13:54)
--- NOTE | 2016-11-13 14:59 | PN ---
Progress Note (short form) - Note Progress Note: Progress Note: Patient seen and examined in the ICU. 24 HOUR EVENTS: -OOB to chair, on 50% VM, not wheezing, doing well Active Medications Albuterol Sulfate (Ventolin 0.083% Nebulizer Soln -) 1 amp NEB Q4H PRN PRN Reason: SHORT OF BREATH/WHEEZING Albuterol/Ipratropium (Duoneb -) 1 amp NEB Q4HPO [facility] Last Admin: 11/13/16 14:25 Dose: 1 amp Budesonide/Formoterol Fumarate (Symbicort 160/4.5mcg -) 1 puff IH BID [facility] Calcium Carbonate (Calcium Carbonate -) 650 mg PO BID [facility] Diltiazem HCl (Cardizem Cd -) 300 mg PO DAILY [facility] Docusate Sodium (Colace -) 100 mg PO DAILY [facility] Enoxaparin Sodium (Lovenox -) 40 mg SQ DAILY [facility] Ferrous Sulfate (Feosol -) 325 mg PO BIDWM [facility] Metformin HCl (Glucophage -) 500 mg PO BID@0700,1630 [facility] Mupirocin (Bactroban 2% Ointment -) 1 applic NS BID [facility] Stop: 11/14/16 21:59 Pantoprazole Sodium (Protonix -) 20 mg PO DAILY [facility] Prednisone (Deltasone -) 40 mg PO DAILY [facility] Quinapril HCl (Accupril -) 20 mg PO DAILY [facility] Last Admin: 11/13/16 13:04 Dose: 20 mg Senna (Senna -) 1 tab PO HS [facility] Vital Signs Temp 97.8 F 11/13/16 14:00 Pulse 87 11/13/16 14:00 Resp 17 11/13/16 14:00 BP 151/107 11/13/16 14:00 Pulse Ox 95 11/13/16 14:25 Intake & Output 11/12/16 11/13/16 11/13/16 23:59 11:59 23:59 Intake Total 400 50 350 Balance 400 50 350 Weight 104.871 kg Intake: IVPB 50 50 Oral 350 350 Other: Voiding Method Toilet Toilet # Unmeasured Voids Void 1 2 2 Bowel Movement Yes Yes # Bowel Movements 1 1 Weight Measurement Method Built in [facility] EXAM: neuro: alert, oob sitting in chair HEENT: PERRL lungs: diminished, no wheezing heart: RRR abd: obese, soft ext: no edema, warm CBC, BMP 11/13/16 05:20 11/13/16 05:20 CXR: no acute pathology ASSESSMENT AND PLAN: Acute on Likely Chronic Hypoxic and Hypercapneic Respiratory Failure requiring NIPPV Acute Asthma Exacerbation likely triggered by URI Likely Obstructive Sleep Apnea/Obesity Hypoventilation Syndrome Hypertensive Urgency +Troponins likely Demand Ischemia Elevated LFTs Morbid Obesity - Pred 40 daily, wean over coming days - inhaled bronchodilators standing and PRN - Abx d/c - O2 to keep SpO2 >90%, wean to NC today, venti if needed - Continue nocturnal BiPAP - needs sleep study as outpatient - PO as tolerated - Low suspicion for PE as symptoms more suggestive of bronchospasm and hypoxia likely due to V/Q mismatching - outpt PFTs and PSG Transfer to the floor with pulm follow up Robinson Shrestha ACNP [id number] 35cct Problem List - Problems (1) Hypertensive urgency Code(s): I16.0 - HYPERTENSIVE URGENCY (2) Status asthmaticus Code(s): J45.902 - UNSPECIFIED ASTHMA WITH STATUS ASTHMATICUS Qualifiers: Asthma severity: severe persistent Qualified Code(s): J45.52 - Severe persistent asthma with status asthmaticus (3) Leukocytosis Code(s): D72.829 - ELEVATED WHITE BLOOD CELL COUNT, UNSPECIFIED Qualifiers: Leukocytosis type: leukemoid reaction Qualified Code(s): D72.823 - Leukemoid reaction
[2016-11-13] MEDS ORDERED: LIDOCAINE HCL 1%, 10 MG/ML (20ML VIAL) ONE (16:26)
[2016-11-13] MEDS: metFORMIN HCL 500 MG TABLET (FP) PO SCH (17:00)
[2016-11-13] MEDS: FERROUS SO4 325 MG TABLET (FP) PO SCH (17:28)
[2016-11-13] MEDS: SENNOSIDES 8.6MG TABLET (FP) PO SCH (21:48)
[2016-11-14] MEDS: ALBUTEROL SO4 2.5/IPRATROPIUM 0.5 INH SOL 3 ML VIAL.NEB. NEB SCH ×6 (01:41→22:15)
[2016-11-14 06:07] LABS: MCH 25.4 pg (25.7-33.7); MCHC 31.2 g/dl (32.0-36.0); MEAN CELL VOLUME 81.3 fl (80-96); MEAN PLT VOLUME 9.3 fl (7.5-11.1); NEUTROPHILS 84.1 % (42.8-82.8); PLATELET COUNT 249 K/MM3 (134-434); RDW 18.1 % (11.6-15.6); WHITE BLOOD COUNT 17.6 K/mm3 (4.0-10.0)
[2016-11-14] MEDS: metFORMIN HCL 500 MG TABLET (FP) PO SCH ×2 (06:20→18:17)
[2016-11-14 06:30] LABS: ANION GAP 10 (8-16); CO2 35 mmol/L (21-32); CREATININE 0.9 mg/dL (0.55-1.02); GLUCOSE,RANDOM 144 mg/dL (74-106)
[2016-11-14 06:37] LABS: CALCIUM 6.5 mg/dL (8.5-10.1)
[2016-11-14 07:37] LABS: ALBUMIN 3.1 g/dl (3.4-5.0)
[2016-11-14] MEDS: FERROUS SO4 325 MG TABLET (FP) PO SCH ×2 (08:00→18:17)
[2016-11-14] MEDS ORDERED: PT OWN MED DRAWER 7, Y5N ONE ×4 (08:16→22:41)
[2016-11-14] MEDS: QUINAPRIL HCL 20 MG TABLET (FP) PO SCH (09:24)
[2016-11-14] MEDS: MUPIROCIN 2% TOPICAL OINTMENT 22 GM TUBE NS SCH (09:24)
[2016-11-14] MEDS: CALCIUM CARBONATE 650 MG TABLET PO SCH ×2 (09:25→22:59)
[2016-11-14] MEDS: DOCUSATE SODIUM 100 MG CAPSULE (FP) PO SCH (09:26)
[2016-11-14] MEDS: predniSONE 20 MG TABLET (UD) PO SCH (09:26)
[2016-11-14] MEDS: HYDROCHLOROTHIAZIDE 25 MG TABLET (FP) PO SCH (09:26)
[2016-11-14] MEDS: BUDESONIDE/FORMETEROL FUMARATE 160/4.5 mcg INHALER IH SCH ×2 (09:27→23:00)
[2016-11-14] MEDS: PANTOPRAZOLE 20 MG TABLET (FP) PO SCH (09:27)
[2016-11-14] MEDS: ENOXAPARIN NA (PORCINE) 40 MG/0.4 ML DISP.SYRIN SQ SCH (09:27)
--- NOTE | 2016-11-14 09:34 | PN ---
Progress Note, Physician History of Present Illness: Placed on bipap overnight, now on NC, dyspnea and BP control improving. - Current Medication List Current Medications: Active Medications Albuterol Sulfate (Ventolin 0.083% Nebulizer Soln -) 1 amp NEB Q4H PRN PRN Reason: SHORT OF BREATH/WHEEZING Albuterol/Ipratropium (Duoneb -) 1 amp NEB Q4HPO [facility] Last Admin: 11/14/16 06:33 Dose: 1 amp Budesonide/Formoterol Fumarate (Symbicort 160/4.5mcg -) 1 puff IH BID [facility] Last Admin: 11/14/16 09:27 Dose: 1 puff Calcium Carbonate (Calcium Carbonate -) 650 mg PO BID [facility] Last Admin: 11/14/16 09:25 Dose: 650 mg Diltiazem HCl (Cardizem Cd -) 300 mg PO DAILY [facility] Last Admin: 11/14/16 09:25 Dose: 300 mg Docusate Sodium (Colace -) 100 mg PO DAILY [facility] Last Admin: 11/14/16 09:26 Dose: 100 mg Enoxaparin Sodium (Lovenox -) 40 mg SQ DAILY [facility] Last Admin: 11/14/16 09:27 Dose: 40 mg Ferrous Sulfate (Feosol -) 325 mg PO BIDWM [facility] Last Admin: 11/14/16 08:00 Dose: 325 mg Hydrochlorothiazide (Hctz -) 25 mg PO DAILY [facility] Last Admin: 11/14/16 09:26 Dose: 25 mg Metformin HCl (Glucophage -) 500 mg PO BID@0700,1630 [facility] Last Admin: 11/14/16 06:20 Dose: 500 mg Mupirocin (Bactroban 2% Ointment -) 1 applic NS BID [facility] Stop: 11/14/16 21:59 Last Admin: 11/14/16 09:24 Dose: 1 applic Pantoprazole Sodium (Protonix -) 20 mg PO DAILY [facility] Last Admin: 11/14/16 09:27 Dose: 20 mg Prednisone (Deltasone -) 40 mg PO DAILY [facility] Last Admin: 11/14/16 09:26 Dose: 40 mg Quinapril HCl (Accupril -) 40 mg PO DAILY [facility] Last Admin: 11/14/16 09:24 Dose: 40 mg Senna (Senna -) 1 tab PO HS [facility] Last Admin: 11/13/16 21:48 Dose: 1 tab - Objective Vital Signs: Vital Signs Temperature 98.6 F 11/14/16 08:00 Pulse Rate 98 H 11/14/16 08:00 Respiratory Rate 22 11/14/16 08:00 Blood Pressure 164/101 11/14/16 08:00 O2 Sat by Pulse Oximetry (%) 100 11/14/16 00:00 Constitutional: Yes: No Distress, Calm Neck: Yes: Supple Cardiovascular: Yes: Regular Rate and Rhythm Respiratory: Yes: Regular, Diminished, On Nasal O2 Gastrointestinal: Yes: Normal Bowel Sounds, Soft, Abdomen, Obese Edema: No Labs: CBC, BMP 11/14/16 05:15 11/14/16 05:15 - ....Imaging EKG: Report Reviewed (Tele: , kirby PVC) Problem List - Problems (1) Hypertensive urgency Code(s): I16.0 - HYPERTENSIVE URGENCY (2) Status asthmaticus Code(s): J45.902 - UNSPECIFIED ASTHMA WITH STATUS ASTHMATICUS Qualifiers: Asthma severity: severe persistent Qualified Code(s): J45.52 - Severe persistent asthma with status asthmaticus (3) Acute and chronic respiratory failure with hypercapnia Code(s): J96.22 - ACUTE AND CHRONIC RESPIRATORY FAILURE WITH HYPERCAPNIA (4) Sinus tachycardia Code(s): R00.0 - TACHYCARDIA, UNSPECIFIED (5) Demand ischemia Code(s): I24.8 - OTHER FORMS OF ACUTE ISCHEMIC HEART DISEASE (6) Anemia Code(s): D64.9 - ANEMIA, UNSPECIFIED (7) Abnormal LFTs Code(s): R79.89 - OTHER SPECIFIED ABNORMAL FINDINGS OF BLOOD CHEMISTRY (8) Leukocytosis Code(s): D72.829 - ELEVATED WHITE BLOOD CELL COUNT, UNSPECIFIED Qualifiers: Leukocytosis type: leukemoid reaction Qualified Code(s): D72.823 - Leukemoid reaction Assessment/Plan A/ 41 yo woman with HTN, morbid obesity (BMI 45), asthma now with acute on chronic respiratory failure in setting of status asthmaticus requiring NIVPPV possibly 2/2 URI Echo: Normal biventricular size and fxn w/o sig valve abnl 1. Acute on chronic hypercapneic, hypoxic respiratory failure referable to asthma flare triggered by URI requiring NIPPV improving 2. HTN/HCVD with urgency now improved 3. OSAS/OHS suspect 4. Anemia 5. Demand ischemia 6. Sinus tachycardia 7. Abnl LFTS due to ischemia resolving 8. Leukocytosis referable to steroid use P:1. Wean FIO2 as saO2 tolerated, Bipap nightly as needed 2. Oral steroid taper, BD, empiric abx d/ford, DVT and GI prophylaxis 3. Increased Cardizem CD 300 qd and continue Accuretic 40/25 qd 4. LFTs and trops have peaked 5. Outpatient PFTs and PSGS, emphasized importance of compliance 6. Transfer to floor
--- NOTE | 2016-11-14 14:04 | PN ---
Progress Note (short form) - Note Progress Note: PULMONARY Breathing continues to improve. States almost at baseline. Peak flow this AM 150. Last Vital Signs Temp Pulse Resp BP Pulse Ox 97.8 F 94 H 21 148/94 96 11/14/16 12:00 11/14/16 12:00 11/14/16 12:00 11/14/16 12:00 11/14/16 10:20 Gen: mildly tachypneic with speaking Heart: RRR Lung: decreased air movement, scattered wheezes Abd: soft, obese, nontender Ext: no edema CBC, BMP 11/14/16 05:15 11/14/16 05:15 Active Medications Albuterol Sulfate (Ventolin 0.083% Nebulizer Soln -) 1 amp NEB Q4H PRN PRN Reason: SHORT OF BREATH/WHEEZING Albuterol/Ipratropium (Duoneb -) 1 amp NEB Q4HPO [facility] Last Admin: 11/14/16 13:51 Dose: 1 amp Budesonide/Formoterol Fumarate (Symbicort 160/4.5mcg -) 1 puff IH BID [facility] Last Admin: 11/14/16 09:27 Dose: 1 puff Calcium Carbonate (Calcium Carbonate -) 650 mg PO BID [facility] Last Admin: 11/14/16 09:25 Dose: 650 mg Diltiazem HCl (Cardizem Cd -) 300 mg PO DAILY [facility] Last Admin: 11/14/16 09:25 Dose: 300 mg Docusate Sodium (Colace -) 100 mg PO DAILY [facility] Last Admin: 11/14/16 09:26 Dose: 100 mg Enoxaparin Sodium (Lovenox -) 40 mg SQ DAILY [facility] Last Admin: 11/14/16 09:27 Dose: 40 mg Ferrous Sulfate (Feosol -) 325 mg PO BIDWM [facility] Last Admin: 11/14/16 08:00 Dose: 325 mg Hydrochlorothiazide (Hctz -) 25 mg PO DAILY [facility] Last Admin: 11/14/16 09:26 Dose: 25 mg Metformin HCl (Glucophage -) 500 mg PO BID@0700,1630 [facility] Last Admin: 11/14/16 06:20 Dose: 500 mg Mupirocin (Bactroban 2% Ointment -) 1 applic NS BID [facility] Stop: 11/14/16 21:59 Last Admin: 11/14/16 09:24 Dose: 1 applic Pantoprazole Sodium (Protonix -) 20 mg PO DAILY [facility] Last Admin: 11/14/16 09:27 Dose: 20 mg Prednisone (Deltasone -) 40 mg PO DAILY [facility] Last Admin: 11/14/16 09:26 Dose: 40 mg Quinapril HCl (Accupril -) 40 mg PO DAILY [facility] Last Admin: 11/14/16 09:24 Dose: 40 mg Senna (Senna -) 1 tab PO [facility] Last Admin: 11/13/16 21:48 Dose: 1 tab A/P Acute on Chronic Hypoxic and Hypercapneic Respiratory Failure Acute Asthma Exacerbation from URI Morbid Obesity Likely JENNIFER/OHS +Troponins/Demand Ischemia - prednisone taper - inhaled bronchodilators - monitor peak flow - BiPAP at night - outpt PFTs, PSG - DVT prophylaxis
--- NOTE | 2016-11-14 15:24 | PN ---
Physical Exam: SUBJECTIVE: 41 year old F pmh asthma, HTN, morbid obesity in ICU for acute on chronic respiratory failure likely due to viral URI. Patient is off abx today with O2 sat of 94% on venti mask. Denies wheezing. Pt states that respiratory function is near baseline. OBJECTIVE: Vital Signs Period Temp Pulse Resp BP Sys/Muniz Pulse Ox Last 24 Hr 97.6 F-98.6 F 79-98 15-24 136-179/84-115 84-100 GENERAL: The patient is awake, alert, and fully oriented, in no acute distress. HEAD: Normal with no signs of trauma. EYES: PERRL, extraocular movements intact, sclera anicteric, conjunctiva clear. No ptosis. ENT: Ears normal, nares patent, oropharynx clear without exudates, moist mucous membranes. NECK: Trachea midline, full range of motion, supple. LUNGS: Breath sounds equal, clear to auscultation bilaterally, no wheezes, no crackles, no accessory muscle use. HEART: Regular rate and rhythm, S1, S2 without murmur, rub or gallop. ABDOMEN: Soft, nontender, nondistended, normoactive bowel sounds, no guarding, no rebound, no hepatosplenomegaly, no masses. EXTREMITIES: 2+ pulses, warm, well-perfused, no edema. NEUROLOGICAL: Cranial nerves II through XII grossly intact. Normal speech, gait not observed. PSYCH: Normal mood, normal affect. SKIN: Warm, dry, normal turgor, no rashes or lesions noted CBC, BMP 11/14/16 05:15 11/14/16 05:15 Active Medications Generic Name Dose Route Start Last Admin Trade Name Freq PRN Reason Stop Dose Admin Albuterol Sulfate 1 amp 11/13/16 13:54 Ventolin 0.083% Nebulizer Soln - NEB Q4H PRN SHORT OF BREATH/WHEEZING Albuterol/Ipratropium 1 amp 11/13/16 14:00 11/14/16 13:51 Duoneb - NEB 1 amp Q4HPO ALICJA Administration Budesonide/Formoterol Fumarate 1 puff 11/13/16 22:00 11/14/16 09:27 Symbicort 160/4.5mcg - IH 1 puff BID ALICJA Administration Calcium Carbonate 650 mg 11/13/16 22:00 11/14/16 09:25 Calcium Carbonate - PO 650 mg BID ALICJA Administration Diltiazem HCl 300 mg 11/14/16 10:00 11/14/16 09:25 Cardizem Cd - PO 300 mg DAILY ALICJA Administration Docusate Sodium 100 mg 11/14/16 10:00 11/14/16 09:26 Colace - PO 100 mg DAILY ALICJA Administration Enoxaparin Sodium 40 mg 11/14/16 10:00 11/14/16 09:27 Lovenox - SQ 40 mg DAILY ALICJA Administration Ferrous Sulfate 325 mg 11/13/16 17:30 11/14/16 08:00 Feosol - PO 325 mg BIDWM ALICJA Administration Hydrochlorothiazide 25 mg 11/14/16 10:00 11/14/16 09:26 Hctz - PO 25 mg DAILY ALICJA Administration Metformin HCl 500 mg 11/13/16 16:30 11/14/16 06:20 Glucophage - PO 500 mg BID@0700,1630 ALICJA Administration Mupirocin 1 applic 11/13/16 22:00 11/14/16 09:24 Bactroban 2% Ointment - NS 11/14/16 21:59 1 applic BID ALICJA Administration Pantoprazole Sodium 20 mg 11/14/16 10:00 11/14/16 09:27 Protonix - PO 20 mg DAILY ALICJA Administration Prednisone 40 mg 11/14/16 10:00 11/14/16 09:26 Deltasone - PO 40 mg DAILY ALICJA Administration Quinapril HCl 40 mg 11/13/16 19:05 11/14/16 09:24 Accupril - PO 40 mg DAILY ALICJA Administration Senna 1 tab 11/13/16 22:00 11/13/16 21:48 Senna - PO 1 tab HS ALICJA Administration ASSESSMENT/PLAN: 41 year old female with acute asthma exacerbation due to viral URI Neuro: neurologically intact, no acute issues Cardiovascular: no acute issues cardiovascularly, hx of htn -continue home medications Pulmonary: resolved acute on chronic respiratory failure due to viral URI -continue prednisone 40mg PO QD -continue duoneb Q4 and symbicort 1 puff BID -patient is stable to be transferred out of the ICU Problem List - Problems (1) Acute and chronic respiratory failure with hypercapnia Code(s): J96.22 - ACUTE AND CHRONIC RESPIRATORY FAILURE WITH HYPERCAPNIA (2) Acute asthma exacerbation Code(s): J45.901 - UNSPECIFIED ASTHMA WITH (ACUTE) EXACERBATION (3) Demand ischemia Code(s): I24.8 - OTHER FORMS OF ACUTE ISCHEMIC HEART DISEASE (4) Hypertension Code(s): I10 - ESSENTIAL (PRIMARY) HYPERTENSION Qualifiers: Hypertension type: unspecified Qualified Code(s): I10 - Essential ( primary) hypertension Visit type - Emergency Visit Emergency Visit: No - New Patient This patient is new to me today: No - Critical Care Critical Care patient: Yes Total Critical Care Time (in minutes): 45 Critical Care Statement: The care of this patient involved high complexity decision making to prevent further life threatening deterioration of the patient 's condition and/or to evalute & treat vital organ system(s) failure or risk of failure.
--- NOTE | 2016-11-14 15:28 | PN ---
Teaching Attending Note Name of Resident: Rosette Azevedo ATTENDING PHYSICIAN STATEMENT I saw and evaluated the patient. I reviewed the resident's note and discussed the case with the resident. I agree with the resident's findings and plan as documented. SUBJECTIVE:states her breathing has improved. denies cough, CP, fever, chills, N /V/C/D OBJECTIVE: Last Vital Signs Temp Pulse Resp BP Pulse Ox 98 F 95 H 20 136/84 84 L 11/14/16 14:16 11/14/16 14:16 11/14/16 14:16 11/14/16 14:16 11/14/16 14:15 General NAD CV S1 S2 RRR no murmur/rub/gallop Lungs CTA. decreased breath sounds, poor inspiratory effort ASSESSMENT AND PLAN: 41yo F with PMH ashtma, HTN and morbid obesity presented to the ER with acute hypoxic respiratory failure 1. Acute hypoxic hypercapnic respiratory failure- likely asthma exacerbation due to viral URI. peak flow 125 which is improved. tolerated longer periods in the evening on NC vs being on face mask. check pre &Post. will likely require home O2. switched to oral steroids today, slow taper. completed abx therapy yesterday. now off abx. encouraged to use incentive spirometer. OOB to chair. nebs prn. 2. Elevated troponin- likely demand ischemia in setting of tachycardia vs hypoxia. troponins peaked at 1.97. echo with no wall motion abnormalities,. no need to workup at this time. cardio on board. 3. HTN emergency-end organ damage. (transaminitis and cardiac ischemia) .improved. started on HCTZ and quinapril yesterday. cont current management 4. Hypocalcemia- Corrected Ca 7.3. asymptomatic. PTH, ionized ca pending. on oral supplementation. 5. Acute transaminitis- due to HTN emergency. resolved. u/s done and negative for acute pathology. 6. Acute normocytic anemia- iron deficiency anemia. on iron supplementation. will need iron studies repeated in 3 months. 7. DM- new onset?. diabetic diet. metformin initiated here. dietary evaluation. 8. Morbid obesity- class III obesity. refer to bariatric surgery as outpatient 9. DVT ppx- lovenox 10. can be transferred to medical floors CC TIME 36 minutes. The care of this patient involved high complexity decision making to prevent further life threatening deterioration of the patient's condition and/or to evalute & treat vital organ system(s) failure or risk of failure.
--- NOTE | 2016-11-14 15:40 | PN ---
Physical Exam: SUBJECTIVE: Patient seen and examined at bedside. Pt states that she is feeling better, and less SOB. Peak flow this AM 150, improved from 100 two days prior. Has been alternating between venti mask and NC 02. Transferred to [address] [place] [id number]. Denies chest pain, or lower extremity pain. OBJECTIVE: Vital Signs Period Temp Pulse Resp BP Sys/Muniz Pulse Ox Last 24 Hr 97.6 F-98.6 F 79-98 15-24 136-179/84-115 84-100 GENERAL: The patient is awake, alert, and fully oriented, in no acute distress. HEAD: Normal with no signs of trauma. EYES: PERRL, extraocular movements intact, sclera anicteric, conjunctiva clear. NECK: Trachea midline, full range of motion, supple. LUNGS:mild wheezing appreciated bilaterally, still has trouble moving air but improved HEART: Regular rate and rhythm, S1, S2 without murmur, rub or gallop. ABDOMEN: Soft, nontender, nondistended, normoactive bowel sounds, no guarding, no rebound EXTREMITIES: 2+ posterior tibial pulses, warm, well-perfused, no edema. NEUROLOGICAL: Cranial nerves II through XII grossly intact. Laboratory Results - last 24 hr 11/14/16 11/14/16 11/14/16 05:15 05:15 05:15 WBC 17.6 H RBC 4.03 Hgb 10.2 L Hct 32.7 MCV 81.3 MCH 25.4 L MCHC 31.2 L RDW 18.1 H Plt Count 249 MPV 9.3 Neutrophils % 84.1 H Lymphocytes % 8.9 D Monocytes % 7.0 D Eosinophils % 0.0 Basophils % 0.0 Sodium 139 Potassium 4.1 Chloride 94 L Carbon Dioxide 35 H Anion Gap 10 BUN 33 H Creatinine 0.9 POC Glucometer Random Glucose 144 H Calcium 6.5 L* Albumin 3.1 L Cancelled 11/14/16 06:26 WBC RBC Hgb Hct MCV MCH MCHC RDW Plt Count MPV Neutrophils % Lymphocytes % Monocytes % Eosinophils % Basophils % Sodium Potassium Chloride Carbon Dioxide Anion Gap BUN Creatinine POC Glucometer [id number] Random Glucose Calcium Albumin Active Medications Generic Name Dose Route Start Last Admin Trade Name Freq PRN Reason Stop Dose Admin Albuterol Sulfate 1 amp 11/13/16 13:54 Ventolin 0.083% Nebulizer Soln - NEB Q4H PRN SHORT OF BREATH/WHEEZING Albuterol/Ipratropium 1 amp 11/13/16 14:00 11/14/16 13:51 Duoneb - NEB 1 amp Q4HPO ALICJA Administration Budesonide/Formoterol Fumarate 1 puff 11/13/16 22:00 11/14/16 09:27 Symbicort 160/4.5mcg - IH 1 puff BID ALICJA Administration Calcium Carbonate 650 mg 11/13/16 22:00 11/14/16 09:25 Calcium Carbonate - PO 650 mg BID ALICJA Administration Diltiazem HCl 300 mg 11/14/16 10:00 11/14/16 09:25 Cardizem Cd - PO 300 mg DAILY ALICJA Administration Docusate Sodium 100 mg 11/14/16 10:00 11/14/16 09:26 Colace - PO 100 mg DAILY ALICJA Administration Enoxaparin Sodium 40 mg 11/14/16 10:00 11/14/16 09:27 Lovenox - SQ 40 mg DAILY ALICJA Administration Ferrous Sulfate 325 mg 11/13/16 17:30 11/14/16 08:00 Feosol - PO 325 mg BIDWM ALICJA Administration Hydrochlorothiazide 25 mg 11/14/16 10:00 11/14/16 09:26 Hctz - PO 25 mg DAILY ALICJA Administration Metformin HCl 500 mg 11/13/16 16:30 11/14/16 06:20 Glucophage - PO 500 mg BID@0700,1630 ALICJA Administration Mupirocin 1 applic 11/13/16 22:00 11/14/16 09:24 Bactroban 2% Ointment - NS 11/14/16 21:59 1 applic BID ALICJA Administration Pantoprazole Sodium 20 mg 11/14/16 10:00 11/14/16 09:27 Protonix - PO 20 mg DAILY ALICJA Administration Prednisone 40 mg 11/14/16 10:00 11/14/16 09:26 Deltasone - PO 40 mg DAILY ALICJA Administration Quinapril HCl 40 mg 11/13/16 19:05 11/14/16 09:24 Accupril - PO 40 mg DAILY ALICJA Administration Senna 1 tab 11/13/16 22:00 11/13/16 21:48 Senna - PO 1 tab HS ALICJA Administration ASSESSMENT/PLAN: This is a 41 y/o F with PMH of severe asthma, no past intubations, 2014 admission for CAP, asthma exacerbation, HTN, morbid obesity, who presented to the ED d/t severe SOB. Pt admitted for asthma exacerbation. # Acute resp failure secondary to acute asthma exacerbation -Parainfluenza virus + -Continue symbicort 1 puff IH BID, Duonebs 1 amp q4, Ventolin 1 amp Q4 -Today is Day 1 of Prednisone 40mg PO qdaily, will taper as sx's improve -Azithromax d/c'ed since completed 3 day course -Rocephin d/c'ed since completed 5 day course -Will f/u whether still using BiPAP at night -Pt unable to perform pre/post today since sat 84% on room air -Weaning from 5L NC to 4L, will f/u -Continue to monitor peak flow # HTN emergency -Signs of end-organ damage- cardiac (ischemia), hepatic (elevated ALT, AST) -Continue Cardiazem 300 mg PO daily -Continue Quinipril 40 mg PO qdaily, HCTZ 25mg PO qdaily #Hypocalcemia -Continue calcium carbonate 650mg PO BID -Will take time for supplementation to take effect #Iron Deficiency Anemia -Continue Ferrous Sulfate 325 mg PO BID -Continue to monitor H&H, iron panel levels #Hyperglycemia -Continue metformin 500mg PO BID # Demand ischemia secondary to hypoxia -Troponin trend- peaked at 1.97 (0.95, 1.97, 1.91) -ECHO- can't exclude wall motion abnormality, but poor study F/E/N -Transferred to [address] [place] [address] -monitor electrolytes -sodium controlled diet Visit type - Emergency Visit Emergency Visit: No - New Patient This patient is new to me today: No - Critical Care Critical Care patient: No
[2016-11-14] MEDS: SENNOSIDES 8.6MG TABLET (FP) PO SCH (22:59)
[2016-11-15] MEDS: ALBUTEROL SO4 2.5/IPRATROPIUM 0.5 INH SOL 3 ML VIAL.NEB. NEB SCH ×6 (02:16→22:00)
[2016-11-15] MEDS: metFORMIN HCL 500 MG TABLET (FP) PO SCH ×2 (06:59→17:10)
[2016-11-15 07:55] LABS: MCH 25.9 pg (25.7-33.7); MCHC 32.3 g/dl (32.0-36.0); MEAN CELL VOLUME 80.2 fl (80-96); MEAN PLT VOLUME 8.9 fl (7.5-11.1); PLATELET COUNT 263 K/MM3 (134-434); RDW 18.5 % (11.6-15.6); WHITE BLOOD COUNT 20.2 K/mm3 (4.0-10.0)
[2016-11-15] MEDS: FERROUS SO4 325 MG TABLET (FP) PO SCH ×2 (08:32→17:10)
[2016-11-15] MEDS: predniSONE 20 MG TABLET (UD) PO SCH (09:15)
[2016-11-15] MEDS: CALCIUM CARBONATE 650 MG TABLET PO SCH ×2 (09:15→21:40)
[2016-11-15] MEDS: DOCUSATE SODIUM 100 MG CAPSULE (FP) PO SCH (09:16)
[2016-11-15] MEDS: PANTOPRAZOLE 20 MG TABLET (FP) PO SCH (09:16)
[2016-11-15] MEDS: HYDROCHLOROTHIAZIDE 25 MG TABLET (FP) PO SCH (09:16)
[2016-11-15] MEDS: ENOXAPARIN NA (PORCINE) 40 MG/0.4 ML DISP.SYRIN SQ SCH (09:17)
[2016-11-15] MEDS: BUDESONIDE/FORMETEROL FUMARATE 160/4.5 mcg INHALER IH SCH ×2 (09:18→21:41)
[2016-11-15 10:37] LABS: ANION GAP 12 (8-16); CO2 33 mmol/L (21-32); GLUCOSE,RANDOM 109 mg/dL (74-106)
[2016-11-15 11:04] LABS: CALCIUM 6.8 mg/dL (8.5-10.1)
[2016-11-15] MEDS: QUINAPRIL HCL 20 MG TABLET (FP) PO SCH (11:12)
--- NOTE | 2016-11-15 11:24 | PN ---
Progress Note (short form) - Note Progress Note: PULMONARY Breathing continues to improve. States almost at baseline. Peak flow done at bedside 190. Last Vital Signs Temp Pulse Resp BP Pulse Ox 98.2 F 98 H 20 127/77 96 11/15/16 09:25 11/15/16 10:30 11/15/16 09:25 11/15/16 09:25 11/15/16 10:30 Gen: less tachypneic with speaking Heart: RRR Lung: distant breath sounds Abd: soft, obese, nontender Ext: no edema CBC, BMP 11/15/16 07:08 11/15/16 07:08 Active Medications Albuterol Sulfate (Ventolin 0.083% Nebulizer Soln -) 1 amp NEB Q4H PRN PRN Reason: SHORT OF BREATH/WHEEZING Albuterol/Ipratropium (Duoneb -) 1 amp NEB Q4HPO [facility] Last Admin: 11/15/16 10:30 Dose: 1 amp Budesonide/Formoterol Fumarate (Symbicort 160/4.5mcg -) 1 puff IH BID [facility] Last Admin: 11/15/16 09:18 Dose: 1 puff Calcium Carbonate (Calcium Carbonate -) 650 mg PO BID [facility] Last Admin: 11/15/16 09:15 Dose: 650 mg Diltiazem HCl (Cardizem Cd -) 300 mg PO DAILY [facility] Last Admin: 11/15/16 11:13 Dose: 300 mg Docusate Sodium (Colace -) 100 mg PO DAILY [facility] Last Admin: 11/15/16 09:16 Dose: 100 mg Enoxaparin Sodium (Lovenox -) 40 mg SQ DAILY [facility] Last Admin: 11/15/16 09:17 Dose: 40 mg Ferrous Sulfate (Feosol -) 325 mg PO BIDWM [facility] Last Admin: 11/15/16 08:32 Dose: 325 mg Hydrochlorothiazide (Hctz -) 25 mg PO DAILY [facility] Last Admin: 11/15/16 09:16 Dose: 25 mg Metformin HCl (Glucophage -) 500 mg PO BID@0700,1630 [facility] Last Admin: 11/15/16 06:59 Dose: 500 mg Pantoprazole Sodium (Protonix -) 20 mg PO DAILY [facility] Last Admin: 11/15/16 09:16 Dose: 20 mg Prednisone (Deltasone -) 40 mg PO DAILY [facility] Last Admin: 11/15/16 09:15 Dose: 40 mg Quinapril HCl (Accupril -) 40 mg PO DAILY [facility] Last Admin: 11/15/16 11:12 Dose: 40 mg Senna (Senna -) 1 tab PO HS [facility] Last Admin: 11/14/16 22:59 Dose: 1 tab A/P Acute on Chronic Hypoxic and Hypercapneic Respiratory Failure Acute Asthma Exacerbation from URI Morbid Obesity Likely JENNIFER/OHS +Troponins/Demand Ischemia - prednisone taper - inhaled bronchodilators - monitor peak flow - BiPAP at night - outpt PFTs, PSG - DVT prophylaxis - physical therapy, ambulate
[2016-11-15 12:05] LABS: METAMYELOCYTE 1 % (0-2); PLATELET ESTIMATE ADEQUATE (NORMAL)
[2016-11-15] MEDS ORDERED: CALCIUM GLUCONATE 10% - 1,000 MG/10 ML VIAL IVPUSH ONE (15:00)
--- NOTE | 2016-11-15 15:59 | PN ---
Physical Exam: SUBJECTIVE: Patient seen and examined at bedside. 02 sat 86% after off NC for 1hr. Pt is feeling less SOB currently. Denies chest or lower extremity pain. OBJECTIVE: Vital Signs Period Temp Pulse Resp BP Sys/Muniz Pulse Ox Last 24 Hr 97.8 F-98.8 F 84-123 16-20 111-157/55-87 92-99 GENERAL: The patient is awake, alert, and fully oriented, in no acute distress. HEAD: Normal with no signs of trauma. EYES: PERRL, extraocular movements intact, sclera anicteric, conjunctiva clear. No ptosis. ENT: Ears normal, nares patent, oropharynx clear without exudates, moist mucous membranes. NECK: Trachea midline, full range of motion, supple. LUNGS: mild expiratory wheezing, improved, moving air better HEART: Regular rate and rhythm, S1, S2 without murmur, rub or gallop. ABDOMEN: Soft, nontender, nondistended, normoactive bowel sounds, no guarding, no rebound EXTREMITIES: 2+ posterior pulses, warm, well-perfused, no edema. NEUROLOGICAL: Cranial nerves II through XII grossly intact. Laboratory Results - last 24 hr 11/14/16 11/15/16 11/15/16 16:01 06:59 07:08 WBC 20.2 H RBC 4.36 Hgb 11.3 D Hct 35.0 MCV 80.2 MCH 25.9 MCHC 32.3 RDW 18.5 H Plt Count 263 MPV 8.9 Neutrophils % 63.0 D Lymphocytes % 30.0 D Monocytes % 6.0 Eosinophils % 0.0 Basophils % 0.0 Band Neutrophils 0.0 D Metamyelocytes 1 D Differential Comment Manual diff done Platelet Estimate Adequate Sodium Potassium Chloride Carbon Dioxide Anion Gap BUN Creatinine POC Glucometer 188 119 Random Glucose Calcium Albumin 11/15/16 11/15/16 07:08 07:08 WBC RBC Hgb Hct MCV MCH MCHC RDW Plt Count MPV Neutrophils % Lymphocytes % Monocytes % Eosinophils % Basophils % Band Neutrophils Metamyelocytes Differential Comment Platelet Estimate Sodium 138 Potassium 3.6 Chloride 93 L Carbon Dioxide 33 H Anion Gap 12 BUN 35 H Creatinine 1.0 POC Glucometer Random Glucose 109 H D Calcium 6.8 L* Albumin 3.5 Active Medications Generic Name Dose Route Start Last Admin Trade Name Freq PRN Reason Stop Dose Admin Albuterol Sulfate 1 amp 11/13/16 13:54 Ventolin 0.083% Nebulizer Soln - NEB Q4H PRN SHORT OF BREATH/WHEEZING Albuterol/Ipratropium 1 amp 11/13/16 14:00 11/15/16 14:39 Duoneb - NEB 1 amp Q4HPO ALICJA Administration Budesonide/Formoterol Fumarate 1 puff 11/13/16 22:00 11/15/16 09:18 Symbicort 160/4.5mcg - IH 1 puff BID ALICJA Administration Calcium Carbonate 650 mg 11/13/16 22:00 11/15/16 09:15 Calcium Carbonate - PO 650 mg BID ALICJA Administration Diltiazem HCl 300 mg 11/14/16 10:00 11/15/16 11:13 Cardizem Cd - PO 300 mg DAILY ALICJA Administration Docusate Sodium 100 mg 11/14/16 10:00 11/15/16 09:16 Colace - PO 100 mg DAILY ALICJA Administration Enoxaparin Sodium 40 mg 11/14/16 10:00 11/15/16 09:17 Lovenox - SQ 40 mg DAILY ALICJA Administration Ferrous Sulfate 325 mg 11/13/16 17:30 11/15/16 08:32 Feosol - PO 325 mg BIDWM ALICJA Administration Hydrochlorothiazide 25 mg 11/14/16 10:00 11/15/16 09:16 Hctz - PO 25 mg DAILY ALICJA Administration Metformin HCl 500 mg 11/13/16 16:30 11/15/16 06:59 Glucophage - PO 500 mg BID@0700,1630 ALICJA Administration Pantoprazole Sodium 20 mg 11/14/16 10:00 11/15/16 09:16 Protonix - PO 20 mg DAILY ALICJA Administration Prednisone 40 mg 11/14/16 10:00 11/15/16 09:15 Deltasone - PO 40 mg DAILY ALICJA Administration Quinapril HCl 40 mg 11/13/16 19:05 11/15/16 11:12 Accupril - PO 40 mg DAILY ALICJA Administration Senna 1 tab 11/13/16 22:00 11/14/16 22:59 Senna - PO 1 tab HS ALICJA Administration ASSESSMENT/PLAN: This is a 41 y/o F with PMH of severe asthma, no past intubations, 2015 admission for CAP, asthma exacerbation, HTN, morbid obesity, who presented to the ED d/t severe SOB. Pt admitted for asthma exacerbation. # Acute resp failure secondary to acute asthma exacerbation -Continue symbicort 1 puff IH BID, Duonebs 1 amp q4, Ventolin 1 amp Q4 -Today is Day 2 of Prednisone 40mg PO qdaily, will taper as sx's improve -Azithromax d/c'ed since completed 3 day course -Rocephin d/c'ed since completed 5 day course -Will f/u whether still using BiPAP at night -F/u pre and post -Weaning from PA 02 # HTN emergency -Signs of end-organ damage- cardiac (ischemia), hepatic (elevated ALT, AST) -Continue Cardiazem 300 mg PO daily -Continue Quinipril 40 mg PO qdaily, HCTZ 25mg PO qdaily #Hypocalcemia -Continue calcium carbonate 650mg PO BID -Check calcium in morning, nurse cannot give Ca gluconate IVP on floor without cardiac monitoring #Iron Deficiency Anemia -Continue Ferrous Sulfate 325 mg PO BID #Hyperglycemia -Continue metformin 500mg PO BID # Demand ischemia secondary to hypoxia -Troponin trend- peaked at 1.97 (0.95, 1.97, 1.91) -ECHO- can't exclude wall motion abnormality, but poor study F/E/N -Transferred to [address] [place] [address] -monitor electrolytes -sodium controlled diet Disposition -Goal to d/c tomorrow if pt continues to improve -Will send home with Prednisone taper Visit type - Emergency Visit Emergency Visit: No - New Patient This patient is new to me today: No - Critical Care Critical Care patient: No
[2016-11-15] MEDS ORDERED: CALCIUM GLUCONATE 10% - 1,000 MG/10 ML VIAL IVPB ONE (16:28)
--- NOTE | 2016-11-15 18:10 | PN ---
Progress Note, Physician Chief Complaint: Events noted Dypspnea improved BP better History of Present Illness: Patient was seen and examined. Awake and alert. Chart was reviewed Dyspnea improved. HR slower Denies chest pain or palpitations. BP better controlled - Current Medication List Current Medications: Active Medications Albuterol Sulfate (Ventolin 0.083% Nebulizer Soln -) 1 amp NEB Q4H PRN PRN Reason: SHORT OF BREATH/WHEEZING Albuterol/Ipratropium (Duoneb -) 1 amp NEB Q4HPO [facility] Last Admin: 11/15/16 14:39 Dose: 1 amp Budesonide/Formoterol Fumarate (Symbicort 160/4.5mcg -) 1 puff IH BID [facility] Last Admin: 11/15/16 09:18 Dose: 1 puff Calcium Carbonate (Calcium Carbonate -) 650 mg PO BID [facility] Last Admin: 11/15/16 09:15 Dose: 650 mg Diltiazem HCl (Cardizem Cd -) 300 mg PO DAILY [facility] Last Admin: 11/15/16 11:13 Dose: 300 mg Docusate Sodium (Colace -) 100 mg PO DAILY [facility] Last Admin: 11/15/16 09:16 Dose: 100 mg Enoxaparin Sodium (Lovenox -) 40 mg SQ DAILY [facility] Last Admin: 11/15/16 09:17 Dose: 40 mg Ferrous Sulfate (Feosol -) 325 mg PO BIDWM [facility] Last Admin: 11/15/16 17:10 Dose: 325 mg Hydrochlorothiazide (Hctz -) 25 mg PO DAILY [facility] Last Admin: 11/15/16 09:16 Dose: 25 mg Metformin HCl (Glucophage -) 500 mg PO BID@0700,1630 [facility] Last Admin: 11/15/16 17:10 Dose: 500 mg Pantoprazole Sodium (Protonix -) 20 mg PO DAILY [facility] Last Admin: 11/15/16 09:16 Dose: 20 mg Prednisone (Deltasone -) 40 mg PO DAILY [facility] Last Admin: 11/15/16 09:15 Dose: 40 mg Quinapril HCl (Accupril -) 40 mg PO DAILY [facility] Last Admin: 11/15/16 11:12 Dose: 40 mg Senna (Senna -) 1 tab PO HS [facility] Last Admin: 11/14/16 22:59 Dose: 1 tab - Objective Vital Signs: Vital Signs Temperature 98 F 08/01/17 14:57 Pulse Rate 106 H 11/15/16 14:57 Respiratory Rate 16 11/15/16 14:57 Blood Pressure 111/55 11/15/16 14:57 O2 Sat by Pulse Oximetry (%) 92 L 11/15/16 13:28 Neck: Yes: Supple Cardiovascular: Yes: Regular Rate and Rhythm, S1, S2 Respiratory: Yes: Diminished Gastrointestinal: Yes: Normal Bowel Sounds, Soft. No: Tenderness Edema: No Additional Findings/Remarks: - Review of Systems Constitutional: denies: Chills, Fever Cardiovascular: denies: Chest Pain. denies: Palpitations, (+) Shortness of Breath Respiratory: denies: Cough, Hemoptysis, Orthopnea, PND, (+) SOB, SOB on Exertion Gastrointestinal: denies: Nausea, Vomiting. denies: Abdominal Pain, Constipation, Diarrhea, Melena, Rectal Bleeding Neurological: denies: Dizziness, Headache, Seizure, Syncope Labs: CBC, BMP 11/15/16 07:08 11/15/16 07:08 Problem List - Problems (1) Abnormal LFTs Code(s): R79.89 - OTHER SPECIFIED ABNORMAL FINDINGS OF BLOOD CHEMISTRY (2) Acute and chronic respiratory failure with hypercapnia Code(s): J96.22 - ACUTE AND CHRONIC RESPIRATORY FAILURE WITH HYPERCAPNIA (3) Acute asthma exacerbation Code(s): J45.901 - UNSPECIFIED ASTHMA WITH (ACUTE) EXACERBATION (4) Anemia Code(s): D64.9 - ANEMIA, UNSPECIFIED (5) Demand ischemia Code(s): I24.8 - OTHER FORMS OF ACUTE ISCHEMIC HEART DISEASE (6) Hypertension Code(s): I10 - ESSENTIAL (PRIMARY) HYPERTENSION Qualifiers: Hypertension type: unspecified Qualified Code(s): I10 - Essential ( primary) hypertension (7) Sinus tachycardia Code(s): R00.0 - TACHYCARDIA, UNSPECIFIED Assessment/Plan 1. Acute on chronic hypercapneic, hypoxic respiratory failure referable to asthma flare triggered by URI and requiring CPAP as indicated 2. HTN/HCVD with urgency 3. Suspect OSAS 4. Anemia 5. Demand ischemia 6. Sinus tachycardia 7. Abnormal LFTS due to demand ischemia 8. Leukocytosis referable to steroid use PLAN: 1. Continue present pulmonary treatment including CPAP and O2 2. IV steroids, bronchodilator, empiric antibiotics and continue DVT prophylaxis 3. Continue Cardizem CD and Quinapril. Continue HCTZ 4. Monitor Ca level Further plans are to follow Vern Guerra MD
--- NOTE | 2016-11-15 18:14 | PN ---
Teaching Attending Note Name of Resident: Rosette Azevedo ATTENDING PHYSICIAN STATEMENT I saw and evaluated the patient. I reviewed the resident's note and discussed the case with the resident. I agree with the resident's findings and plan as documented. SUBJECTIVE: OBJECTIVE: Vital Signs Period Temp Pulse Resp BP Sys/Muniz Pulse Ox Last 24 Hr 97.8 F-98.8 F 84-123 16-20 111-157/55-87 92-99 ASSESSMENT AND PLAN: 41yo F with PMH ashtma, HTN and morbid obesity presented to the ER with acute hypoxic respiratory failure 1. Acute hypoxic hypercapnic respiratory failure- likely asthma exacerbation due to viral URI. peak flow 125 which is improved. tolerated longer periods in the evening on NC vs being on face mask. check pre &Post. will likely require home O2. switched to oral steroids today, slow taper. completed abx therapy yesterday. now off abx. encouraged to use incentive spirometer. OOB to chair. nebs prn. 2. Elevated troponin- likely demand ischemia in setting of tachycardia vs hypoxia. troponins peaked at 1.97. echo with no wall motion abnormalities,. no need to workup at this time. cardio on board. 3. HTN emergency-end organ damage. (transaminitis and cardiac ischemia) .improved. started on HCTZ and quinapril yesterday. cont current management 4. Hypocalcemia- Corrected Ca 7.3. asymptomatic. PTH, ionized ca pending. on oral supplementation. 5. Acute transaminitis- due to HTN emergency. resolved. u/s done and negative for acute pathology. 6. Acute normocytic anemia- iron deficiency anemia. on iron supplementation. will need iron studies repeated in 3 months. 7. DM- new onset?. diabetic diet. metformin initiated here. dietary evaluation. 8. Morbid obesity- class III obesity. refer to bariatric surgery as outpatient 9. DVT ppx- lovenox 10. can be transferred to medical floors
[2016-11-15] MEDS: SENNOSIDES 8.6MG TABLET (FP) PO SCH (21:40)
[2016-11-16] MEDS: ALBUTEROL SO4 2.5/IPRATROPIUM 0.5 INH SOL 3 ML VIAL.NEB. NEB SCH ×5 (02:08→18:25)
[2016-11-16] MEDS: metFORMIN HCL 500 MG TABLET (FP) PO SCH ×2 (06:44→17:52)
[2016-11-16 07:47] LABS: ANION GAP 10 (8-16); CALCIUM 7.1 mg/dL (8.5-10.1); CO2 35 mmol/L (21-32); CREATININE 1.2 mg/dL (0.55-1.02); GLUCOSE,RANDOM 105 mg/dL (74-106)
[2016-11-16] MEDS: FERROUS SO4 325 MG TABLET (FP) PO SCH ×3 (08:13→17:52)
[2016-11-16] MEDS ORDERED: ONDANSETRON 4 MG/2 ML VIAL IVPUSH PRN (08:22)
[2016-11-16] MEDS ORDERED: PT OWN MED DRAWER 7, Y5N ONE (11:59)
[2016-11-16] MEDS: predniSONE 20 MG TABLET (UD) PO SCH (12:28)
[2016-11-16] MEDS: ENOXAPARIN NA (PORCINE) 40 MG/0.4 ML DISP.SYRIN SQ SCH (12:28)
[2016-11-16] MEDS: DOCUSATE SODIUM 100 MG CAPSULE (FP) PO SCH (12:29)
[2016-11-16] MEDS: PANTOPRAZOLE 20 MG TABLET (FP) PO SCH (12:29)
[2016-11-16] MEDS: HYDROCHLOROTHIAZIDE 25 MG TABLET (FP) PO SCH (12:29)
[2016-11-16] MEDS: QUINAPRIL HCL 20 MG TABLET (FP) PO SCH (12:30)
[2016-11-16] MEDS: CALCIUM CARBONATE 650 MG TABLET PO SCH (12:30)
[2016-11-16] MEDS: BUDESONIDE/FORMETEROL FUMARATE 160/4.5 mcg INHALER IH SCH (12:41)
--- NOTE | 2016-11-16 13:16 | DS ---
Physical Exam: SUBJECTIVE: Patient seen and examined at bedside. Pt does not feel SOB of this morning and 02 sat is 93% on room air. Denies cough, fever, chills, chest or lower extremity pain. OBJECTIVE: Vital Signs Period Temp Pulse Resp BP Sys/Muniz Pulse Ox Last 24 Hr 97.6 F-98 F 81-123 16-22 111-132/55-95 92-99 PHYSICAL EXAM GENERAL: The patient is awake, alert, and fully oriented, in no acute distress. Off NC HEAD: Normal with no signs of trauma. EYES: PERRL, extraocular movements intact, sclera anicteric, conjunctiva clear. NECK: Trachea midline, supple. LUNGS: mild expiratory wheezes at apices of lungs HEART: Regular rate and rhythm, S1, S2 without murmur, rub or gallop. ABDOMEN: Soft, nontender, nondistended, normoactive bowel sounds, no guarding, no rebound, no hepatosplenomegaly, no masses. EXTREMITIES: 2+ posterior tibial pulses, warm, well-perfused, no edema. NEUROLOGICAL: Cranial nerves II through XII grossly intact. VITALS TREND/LABS Vitals Trend 11/09/16 11/09/16 11/09/16 15:48 16:55 17:00 Temperature 98.4 F Pulse Rate 127 H Pulse Rate [ Apical] Pulse Rate [ 132 H Right] Respiratory 28 H 28 H Rate Blood Pressure 208/128 Blood Pressure Mean O2 Sat by Pulse 80 L 82 L 90 L Oximetry (%) Oxygen Delivery Room Air Simple O2 Mask Method 11/09/16 11/09/16 11/09/16 18:00 18:34 19:00 Temperature Pulse Rate Pulse Rate [ 141 H 138 H Apical] Pulse Rate [ 128 H Right] Respiratory 38 H 32 H 38 H Rate Blood Pressure Blood Pressure Mean O2 Sat by Pulse 89 L 92 L 91 L Oximetry (%) Oxygen Delivery Venturi Mask Venturi Mask Venturi Mask Method 11/09/16 11/09/16 11/09/16 19:42 21:00 21:15 Temperature 98.0 F Pulse Rate Pulse Rate [ 125 H Apical] Pulse Rate [ Right] Respiratory 25 H Rate Blood Pressure Blood Pressure Mean O2 Sat by Pulse 97 98 97 Oximetry (%) Oxygen Delivery Bi-pap Bi-pap Method 11/09/16 11/09/16 11/10/16 21:21 21:40 00:00 Temperature 98.1 F Pulse Rate 116 H Pulse Rate [ 120 H Apical] Pulse Rate [ Right] Respiratory 23 24 18 Rate Blood Pressure 166/100 Blood Pressure Mean O2 Sat by Pulse 92 L 98 Oximetry (%) Oxygen Delivery Bi-pap Method 11/10/16 11/10/16 11/10/16 00:29 00:30 02:00 Temperature Pulse Rate Pulse Rate [ Apical] Pulse Rate [ Right] Respiratory 23 17 Rate Blood Pressure Blood Pressure Mean O2 Sat by Pulse 98 Oximetry (%) Oxygen Delivery Method 11/10/16 11/10/16 11/10/16 03:30 04:00 06:00 Temperature Pulse Rate Pulse Rate [ Apical] Pulse Rate [ Right] Respiratory 22 15 Rate Blood Pressure Blood Pressure Mean O2 Sat by Pulse 95 95 Oximetry (%) Oxygen Delivery Method 11/10/16 11/10/16 11/10/16 07:23 09:00 10:00 Temperature Pulse Rate Pulse Rate [ Apical] Pulse Rate [ Right] Respiratory 22 22 Rate Blood Pressure Blood Pressure Mean O2 Sat by Pulse 95 90 L Oximetry (%) Oxygen Delivery Bi-pap Method 11/10/16 11/10/16 11/10/16 10:25 12:00 14:00 Temperature Pulse Rate Pulse Rate [ Apical] Pulse Rate [ Right] Respiratory 24 21 Rate Blood Pressure Blood Pressure Mean O2 Sat by Pulse 90 L Oximetry (%) Oxygen Delivery Method 11/10/16 11/10/16 11/10/16 17:21 19:00 20:42 Temperature Pulse Rate Pulse Rate [ Apical] Pulse Rate [ Right] Respiratory 23 24 24 Rate Blood Pressure Blood Pressure Mean O2 Sat by Pulse 95 93 L Oximetry (%) Oxygen Delivery Venturi Mask Method 11/10/16 11/10/16 11/11/16 21:00 23:00 02:00 Temperature 98.2 F Pulse Rate 97 H Pulse Rate [ Apical] Pulse Rate [ Right] Respiratory 19 21 Rate Blood Pressure 115/78 Blood Pressure Mean O2 Sat by Pulse Oximetry (%) Oxygen Delivery Method 11/11/16 11/11/16 11/11/16 04:00 06:00 08:00 Temperature 98.7 F Pulse Rate 94 H 102 H 104 H Pulse Rate [ Apical] Pulse Rate [ Right] Respiratory Rate Blood Pressure 158/72 157/88 153/96 Blood Pressure Mean O2 Sat by Pulse Oximetry (%) Oxygen Delivery Method 11/11/16 11/11/16 11/11/16 09:13 10:04 11:44 Temperature 98.2 F Pulse Rate 104 H 108 H 112 H Pulse Rate [ Apical] Pulse Rate [ Right] Respiratory Rate Blood Pressure 176/108 182/100 137/106 Blood Pressure Mean O2 Sat by Pulse Oximetry (%) Oxygen Delivery Method 11/11/16 11/11/16 11/11/16 14:00 16:00 18:00 Temperature Pulse Rate 98 H 100 H 104 H Pulse Rate [ Apical] Pulse Rate [ Right] Respiratory Rate Blood Pressure 133/80 126/78 150/90 Blood Pressure Mean O2 Sat by Pulse Oximetry (%) Oxygen Delivery Method 11/11/16 11/11/16 11/12/16 21:00 23:00 01:32 Temperature 98.4 F 98.4 F Pulse Rate 97 H 96 H 120 H Pulse Rate [ Apical] Pulse Rate [ Right] Respiratory Rate Blood Pressure 106/67 104/69 106/42 Blood Pressure Mean O2 Sat by Pulse Oximetry (%) Oxygen Delivery Method 11/12/16 11/12/16 11/12/16 01:39 03:00 04:30 Temperature 98.2 F 98.2 F Pulse Rate 91 H 95 H Pulse Rate [ Apical] Pulse Rate [ Right] Respiratory Rate Blood Pressure 119/73 146/88 Blood Pressure Mean O2 Sat by Pulse 94 L Oximetry (%) Oxygen Delivery Method 11/12/16 11/12/16 11/12/16 05:00 07:00 08:00 Temperature 98.1 F 95.4 F L 97.7 F Pulse Rate 90 96 H 94 H Pulse Rate [ Apical] Pulse Rate [ Right] Respiratory Rate Blood Pressure 168/98 180/110 176/96 Blood Pressure Mean O2 Sat by Pulse 95 Oximetry (%) Oxygen Delivery Method 11/12/16 11/12/16 11/12/16 10:00 10:30 12:00 Temperature 97.5 F L 97.2 F L Pulse Rate 99 H 94 H 115 H Pulse Rate [ Apical] Pulse Rate [ Right] Respiratory Rate Blood Pressure 141/89 148/100 Blood Pressure Mean O2 Sat by Pulse 98 Oximetry (%) Oxygen Delivery Method 11/12/16 11/12/16 11/12/16 14:00 14:19 16:00 Temperature 97.5 F L 97.6 F Pulse Rate 102 H 98 H Pulse Rate [ Apical] Pulse Rate [ Right] Respiratory Rate Blood Pressure 152/95 143/81 Blood Pressure Mean O2 Sat by Pulse 91 L Oximetry (%) Oxygen Delivery Method 11/12/16 11/12/16 11/12/16 16:51 16:55 18:00 Temperature 98.2 F 98.2 F Pulse Rate 100 H 106 H Pulse Rate [ Apical] Pulse Rate [ Right] Respiratory Rate Blood Pressure 143/81 150/88 Blood Pressure Mean O2 Sat by Pulse 95 Oximetry (%) Oxygen Delivery Method 11/12/16 11/12/16 11/12/16 18:37 20:00 21:00 Temperature 98.2 F Pulse Rate 108 H Pulse Rate [ Apical] Pulse Rate [ Right] Respiratory Rate Blood Pressure 132/67 Blood Pressure Mean O2 Sat by Pulse 98 96 Oximetry (%) Oxygen Delivery Method 11/12/16 11/12/16 11/13/16 21:30 22:00 02:00 Temperature Pulse Rate 99 H 93 H Pulse Rate [ Apical] Pulse Rate [ Right] Respiratory 19 Rate Blood Pressure 167/108 Blood Pressure Mean O2 Sat by Pulse 96 Oximetry (%) Oxygen Delivery Method 11/13/16 11/13/16 11/13/16 02:28 04:00 06:00 Temperature 97.9 F Pulse Rate 90 98 H Pulse Rate [ Apical] Pulse Rate [ Right] Respiratory 18 24 Rate Blood Pressure Blood Pressure Mean O2 Sat by Pulse 95 Oximetry (%) Oxygen Delivery Method 11/13/16 11/13/16 11/13/16 06:27 08:00 10:00 Temperature 98.1 F 98.2 F Pulse Rate 103 H 100 H Pulse Rate [ Apical] Pulse Rate [ Right] Respiratory 24 24 Rate Blood Pressure Blood Pressure Mean O2 Sat by Pulse 95 92 L Oximetry (%) Oxygen Delivery Method 11/13/16 11/13/16 11/13/16 10:10 12:00 14:00 Temperature 97.5 F L 97.8 F Pulse Rate 95 H 110 H 87 Pulse Rate [ Apical] Pulse Rate [ Right] Respiratory 22 17 Rate Blood Pressure Blood Pressure Mean O2 Sat by Pulse 92 L Oximetry (%) Oxygen Delivery Method 11/13/16 11/13/16 11/13/16 14:25 16:00 16:36 Temperature 97.9 F Pulse Rate 85 97 H Pulse Rate [ Apical] Pulse Rate [ Right] Respiratory 17 24 Rate Blood Pressure Blood Pressure Mean O2 Sat by Pulse 95 Oximetry (%) Oxygen Delivery Method 11/13/16 11/13/16 11/13/16 16:45 18:00 19:10 Temperature 97.6 F Pulse Rate 97 H Pulse Rate [ Apical] Pulse Rate [ Right] Respiratory 20 Rate Blood Pressure Blood Pressure Mean O2 Sat by Pulse 98 99 Oximetry (%) Oxygen Delivery Method 11/13/16 11/13/16 11/13/16 20:00 21:00 22:00 Temperature 97.8 F Pulse Rate 95 H 89 Pulse Rate [ Apical] Pulse Rate [ Right] Respiratory 19 21 20 Rate Blood Pressure Blood Pressure Mean O2 Sat by Pulse 100 Oximetry (%) Oxygen Delivery Method 11/14/16 11/14/16 11/14/16 00:00 02:00 04:00 Temperature Pulse Rate Pulse Rate [ Apical] Pulse Rate [ Right] Respiratory 21 15 20 Rate Blood Pressure Blood Pressure Mean O2 Sat by Pulse Oximetry (%) Oxygen Delivery Method 11/14/16 11/14/16 11/14/16 06:00 08:00 10:00 Temperature Pulse Rate Pulse Rate [ Apical] Pulse Rate [ Right] Respiratory 22 22 22 Rate Blood Pressure Blood Pressure Mean O2 Sat by Pulse Oximetry (%) Oxygen Delivery Method 11/14/16 11/14/16 11/14/16 12:00 14:16 18:19 Temperature Pulse Rate Pulse Rate [ Apical] Pulse Rate [ Right] Respiratory 21 20 20 Rate Blood Pressure Blood Pressure Mean O2 Sat by Pulse Oximetry (%) Oxygen Delivery Method 11/14/16 11/15/16 11/15/16 23:04 06:00 06:19 Temperature 98.8 F Pulse Rate 84 Pulse Rate [ Apical] Pulse Rate [ Right] Respiratory 20 Rate Blood Pressure Blood Pressure Mean O2 Sat by Pulse Oximetry (%) Oxygen Delivery Nasal Cannula Method 11/15/16 11/15/16 11/15/16 09:00 09:25 10:30 Temperature 98.2 F Pulse Rate 94 H 98 H Pulse Rate [ Apical] Pulse Rate [ Right] Respiratory Rate Blood Pressure Blood Pressure Mean O2 Sat by Pulse 99 96 Oximetry (%) Oxygen Delivery Nasal Cannula Nasal Cannula Method 11/15/16 11/15/16 11/15/16 13:28 14:57 19:00 Temperature 98 F 97.6 F Pulse Rate 123 H 106 H 91 H Pulse Rate [ Apical] Pulse Rate [ Right] Respiratory Rate Blood Pressure Blood Pressure Mean O2 Sat by Pulse 92 L Oximetry (%) Oxygen Delivery Method 11/15/16 11/15/16 11/15/16 21:00 21:42 22:00 Temperature 97.9 F Pulse Rate 95 H Pulse Rate [ Apical] Pulse Rate [ Right] Respiratory Rate Blood Pressure Blood Pressure Mean O2 Sat by Pulse 96 96 Oximetry (%) Oxygen Delivery Nasal Cannula Method 11/16/16 11/16/16 11/16/16 00:13 04:30 06:00 Temperature 97.6 F Pulse Rate 81 Pulse Rate [ Apical] Pulse Rate [ Right] Respiratory Rate Blood Pressure 122/95 Blood Pressure 104 Mean O2 Sat by Pulse 99 96 Oximetry (%) Oxygen Delivery Method 11/16/16 11/16/16 11/16/16 06:51 09:10 09:38 Temperature Pulse Rate 102 H 88 Pulse Rate [ Apical] Pulse Rate [ Right] Respiratory Rate Blood Pressure Blood Pressure Mean O2 Sat by Pulse 99 95 95 Oximetry (%) Oxygen Delivery Method Laboratory Tests 11/09/16 11/09/16 11/09/16 17:41 17:41 17:41 WBC 14.4 H Hgb 10.4 L Hct 33.1 MCV Plt Count ABG pH ABG pCO2 at Pt Temp ABG HCO3 ABG O2 Content ABG Base Excess BUN Creatinine Random Glucose 152 H Hemoglobin A1c % Calcium 6.3 L* Troponin I 0.03 Albumin 11/09/16 11/10/16 11/10/16 19:00 03:45 06:05 WBC Hgb 8.8 L D Hct MCV 82.6 Plt Count ABG pH 7.34 L 7.30 L ABG pCO2 at Pt Temp 68.4 H* ABG HCO3 32.6 H ABG O2 Content 13.1 L ABG Base Excess 5.3 H BUN Creatinine Random Glucose Hemoglobin A1c % Calcium Troponin I Albumin 11/10/16 11/10/16 11/10/16 06:05 06:05 06:05 WBC Hgb Hct MCV Plt Count ABG pH ABG pCO2 at Pt Temp ABG HCO3 ABG O2 Content ABG Base Excess BUN Creatinine Random Glucose Hemoglobin A1c % 6.4 H D Calcium 5.7 L* Troponin I 1.58 H* Albumin 11/11/16 11/11/16 11/12/16 05:15 05:15 05:20 WBC 22.6 H D 19.8 H Hgb 9.7 L Hct 31.1 L MCV Plt Count 245 ABG pH ABG pCO2 at Pt Temp ABG HCO3 ABG O2 Content ABG Base Excess BUN 21 H D Creatinine 0.9 Random Glucose 157 H Hemoglobin A1c % Calcium 6.2 L* Troponin I 1.91 H* Albumin 11/12/16 11/13/16 11/13/16 05:20 05:20 05:20 WBC 16.9 H Hgb 10.0 L Hct 31.7 L MCV Plt Count 249 ABG pH ABG pCO2 at Pt Temp ABG HCO3 ABG O2 Content ABG Base Excess BUN 31 H D 30 H Creatinine 1.0 1.0 Random Glucose 162 H 168 H Hemoglobin A1c % Calcium 7.0 L 6.6 L* Troponin I Albumin 11/14/16 11/14/16 11/15/16 05:15 05:15 07:08 WBC 17.6 H 20.2 H Hgb 10.2 L 11.3 D Hct 32.7 35.0 MCV Plt Count 249 263 ABG pH ABG pCO2 at Pt Temp ABG HCO3 ABG O2 Content ABG Base Excess BUN 33 H Creatinine 0.9 Random Glucose 144 H Hemoglobin A1c % Calcium 6.5 L* Troponin I Albumin 11/15/16 11/15/16 11/16/16 07:08 07:08 06:40 WBC Hgb Hct MCV Plt Count ABG pH ABG pCO2 at Pt Temp ABG HCO3 ABG O2 Content ABG Base Excess BUN 35 H 45 H D Creatinine 1.0 1.2 H Random Glucose 109 H D Hemoglobin A1c % Calcium 6.8 L* 7.1 L Troponin I Albumin 3.5 11/16/16 06:40 WBC Hgb Hct MCV Plt Count ABG pH ABG pCO2 at Pt Temp ABG HCO3 ABG O2 Content ABG Base Excess BUN Creatinine Random Glucose Hemoglobin A1c % Calcium Troponin I Albumin 3.1 L IMAGING 11/09/2016: CXR: no acute pathology 11/09/16: EKG: sinus tachycardia, septal infarct, abnormal EKG when compared to August 2014, no significant change was found 11/10/16: Abdominal Sono: hepatomegaly with hepatic steatosis, no biliary dilation or masses. No retained stones seen. 11/10/16: ECHO: Regional wall motion abnormalities can't be excluded 11/11/16: CXR: No acute pathology HOSPITAL COURSE: Date of Admission:11/09/16 Date of Discharge: 11/16/16 Admit diagnosis: acute respiratory failure secondary to acute asthma exacerbation Pre-admission course This is a 41 yo F with PMH of severe asthma, 2 admissions in past 5 yrs, no intubations, 2015 admission for CAP, PE and asthma exacerbation, HTN, and morbid obesity, who presents harjit to severe sob. Patient states that her symptoms started 4 days ago with increased sob and wheezing, moderately alleviated by nebs. This afternoon, her respiratory status suddenly deteriorated w/o any additional new symptoms. She denies f/c, cough, myalgia, malaise, however admits to a few days of runny nose and chills 1 w ago. Her mother, domi whom she lives has also been sick with URI, f/c a week ago. Patient states that she has had asthma for the past 4 yrs, with 1-2 flares per week, triggered by heat, perfume and animal allergies. She does nto follow any doctors and uses her mothers asthma nebs (albuterol and advair PRN). She denies recent travel, leg pain or edema, h/a, focal weakness or numbness, change in vision, chest pain, palpitations, back pain, abd pain, n/v, diarrhea, constipation, melena, hematochezia, dysuria. ER course was notable for: (1)labs (2)cxr, ekg (3) solumedrol 125, nebs, azithromycin, rocephin, bipap Hospital course Pt was admitted to ICU and was treated for her asthma exacerbation. She received symbicort, Solumedrol IVPB q12 (later transitioned to Prednisone taper , which she is going home on), and was treated with rocephin and azithromax. However, pt's trigger was found to be parainfluenza type 3, thus abx were d/c. Pt was also on BiPAP and weaned from 4-5L on NC to 2L of 02 and 50% Fi02 ventimask. PE was also ruled out after pt had D-dimer of 453 but it was found to be of low suspicion, so v/q scan was not performed. During this time, pt also had demand ischemia most likely secondary to hypoxia as pt's troponins were elevated x3, however they began to decrease after 1.97 at the third trop , most likely not cardiac event. Pt was also treated for HTN emergency with Cardiazem 300 mg PO, hypocalcemia treated with calcium carbonate, iron deficiency anemia treated with Ferrous sulfate, and metformin 500 BID to address her hyperglycemia and pre-diabetes. A quill reamer also saw her to funeral prearrangement counselor her on healthy eating upon returning home. Once pt's breathing was stabilized and she was less dependent on the venti-mask, she was downgraded to the med- surg floor, where her SOB improved. Minutes to complete discharge: 32 Discharge Summary Reason For Visit: HYPERTENSION/HYPOCALCEMIA Current Active Problems Abnormal LFTs (Acute) Acute and chronic respiratory failure with hypercapnia (Acute) Acute asthma exacerbation (Acute) Anemia (Acute) Demand ischemia (Acute) Hypertensive urgency (Acute) Hypocalcemia (Acute) Sinus tachycardia (Acute) Hypertension (Chronic) Condition: Stable - Instructions Diet, Activity, Other Instructions: You were recently in the hospital due to an asthma exacerbation. You may resume activity as tolerated. Please take the following medications at home for your asthma: -Prednisone (Deltasone) 40mg (4 pills) tomorrow (11/17), 30mg (3 pills) (11/18-11/21) , 20mg (2 pills) (11/22-11/25) -Symbicort 160/4.5mg - 1 puff twice a day -Duoneb 1 amp neb 4times a day/when needed -Ventolin rescue inhaler as needed We would also like you to take these medications for your high blood pressure: -Quinapril 40mg by mouth daily -Cardiazem 300mg by mouth daily -Hydrochlorothiazide 25 mg by mouth daily -Ferrous sulfate 325mg twice a day by mouth, with meals - to help your Iron levels. This may cause your stool to become black and can also cause constipation. -Metformin 500mg twice a day- for your Diabetes -Calcium carbonate 650 mg twice a day - to help your calcium levels, which were low while you were in the hospital We would like you to follow up with your primary care doctor in 1 week and a broadcast technician, Dr. Briseno in 1 week as well. If you develop shortness of breath, chest pain, or any new symptoms, please go to the hospital. We hope you feel better soon. Referrals: Demarcus Briseno MD [Staff Physician] - Disposition: HOME - Home Medications Comprehensive Discharge Medication List: Ambulatory Orders Albuterol 0.083% Nebulizer Kaitlyn [Ventolin 0.083% Nebulizer Soln -] 1 amp NEB Q4H PRN #1 inhaler 11/16/16 Albuterol 2.5/Ipratropium 0.5 [Duoneb -] 1 amp NEB Q4HPO #1 inhaler 11/16/16 Budesonide/Formeterol Fumarate [SYMBICORT 160/4.5mcg -] 1 puff IH BID #1 inhaler 11/16/16 Calcium Carbonate - 650 mg PO BID #60 tablet 11/16/16 Diltiazem Cd [Cardizem Cd -] 300 mg PO DAILY #30 tab 11/16/16 Docusate Sodium [Colace -] 100 mg PO DAILY cap 11/16/16 Ferrous Sulfate [Feosol] 325 mg PO BIDWM #60 cap 11/16/16 Hydrochlorothiazide 25 mg PO DAILY #30 tablet 11/16/16 Metformin HCl [Glucophage -] 500 mg PO BID@0700,1630 #60 tablet 11/16/16 Prednisone [Deltasone -] 10 mg PO DAILY #28 tablet 11/16/16 Quinapril HCl [Accupril -] 40 mg PO DAILY 30 Days 11/16/16 Sennosides [Senna -] 1 tab PO HS tablet 11/16/16 This patient is new to me today: No Emergency Visit: No Critical Care patient: No - Discharge Referral Referred to [facility] Med [facility] No
[2016-11-16 16:50] VITALS: BP 116/80; PULSE 90; TEMP 98
--- NOTE | 2016-11-16 17:12 | PN ---
Teaching Attending Note Name of Resident: Rosette Azevedo ATTENDING PHYSICIAN STATEMENT I saw and evaluated the patient. I reviewed the resident's note and discussed the case with the resident. I agree with the resident's findings and plan as documented. SUBJECTIVE: OBJECTIVE: Vital Signs Period Temp Pulse Resp BP Sys/Muniz Pulse Ox Last 24 Hr 97.6 F-98 F 81-102 16-22 116-132/61-95 95-99 ASSESSMENT AND PLAN:
--- NOTE | 2016-11-16 18:08 | PN ---
Progress Note, Physician History of Present Illness: Placed on bipap overnight, now on NC, dyspnea and BP control improving. - Current Medication List Current Medications: Active Medications Albuterol Sulfate (Ventolin 0.083% Nebulizer Soln -) 1 amp NEB Q4H PRN PRN Reason: SHORT OF BREATH/WHEEZING Albuterol/Ipratropium (Duoneb -) 1 amp NEB Q4HPO [facility] Last Admin: 11/16/16 13:50 Dose: 1 amp Budesonide/Formoterol Fumarate (Symbicort 160/4.5mcg -) 1 puff IH BID [facility] Last Admin: 11/16/16 12:41 Dose: 1 puff Calcium Carbonate (Calcium Carbonate -) 650 mg PO BID [facility] Last Admin: 11/16/16 12:30 Dose: 650 mg Diltiazem HCl (Cardizem Cd -) 300 mg PO DAILY [facility] Last Admin: 11/16/16 12:30 Dose: 300 mg Docusate Sodium (Colace -) 100 mg PO DAILY [facility] Last Admin: 11/16/16 12:29 Dose: 100 mg Enoxaparin Sodium (Lovenox -) 40 mg SQ DAILY [facility] Last Admin: 11/16/16 12:28 Dose: 40 mg Ferrous Sulfate (Feosol -) 325 mg PO BIDWM [facility] Last Admin: 11/16/16 17:52 Dose: 325 mg Hydrochlorothiazide (Hctz -) 25 mg PO DAILY [facility] Last Admin: 11/16/16 12:29 Dose: 25 mg Metformin HCl (Glucophage -) 500 mg PO BID@0700,1630 [facility] Last Admin: 11/16/16 17:52 Dose: 500 mg Ondansetron HCl (Zofran Injection) 4 mg IVPUSH Q4H PRN PRN Reason: NAUSEA AND/OR VOMITING Pantoprazole Sodium (Protonix -) 20 mg PO DAILY [facility] Last Admin: 11/16/16 12:29 Dose: 20 mg Prednisone (Deltasone -) 40 mg PO DAILY [facility] Last Admin: 11/16/16 12:28 Dose: 40 mg Quinapril HCl (Accupril -) 40 mg PO DAILY [facility] Last Admin: 11/16/16 12:30 Dose: 40 mg Senna (Senna -) 1 tab PO HS [facility] Last Admin: 11/15/16 21:40 Dose: 1 tab - Objective Vital Signs: Vital Signs Temperature 98 F 11/16/16 10:00 Pulse Rate 90 11/16/16 10:00 Respiratory Rate 18 11/16/16 10:00 Blood Pressure 116/80 11/16/16 10:00 O2 Sat by Pulse Oximetry (%) 95 11/16/16 09:38 Constitutional: Yes: No Distress, Calm Neck: Yes: Supple Cardiovascular: Yes: Regular Rate and Rhythm Respiratory: Yes: Regular, Diminished, On Nasal O2 Gastrointestinal: Yes: Normal Bowel Sounds, Soft, Abdomen, Obese Edema: Yes Edema: LLE: Trace, RLE: Trace Labs: CBC, BMP 11/15/16 07:08 11/16/16 12:45 Problem List - Problems (1) Hypertensive urgency Code(s): I16.0 - HYPERTENSIVE URGENCY (2) Status asthmaticus Code(s): J45.902 - UNSPECIFIED ASTHMA WITH STATUS ASTHMATICUS Qualifiers: Asthma severity: severe persistent Qualified Code(s): J45.52 - Severe persistent asthma with status asthmaticus (3) Acute and chronic respiratory failure with hypercapnia Code(s): J96.22 - ACUTE AND CHRONIC RESPIRATORY FAILURE WITH HYPERCAPNIA (4) Sinus tachycardia Code(s): R00.0 - TACHYCARDIA, UNSPECIFIED (5) Demand ischemia Code(s): I24.8 - OTHER FORMS OF ACUTE ISCHEMIC HEART DISEASE (6) Anemia Code(s): D64.9 - ANEMIA, UNSPECIFIED (7) Abnormal LFTs Code(s): R79.89 - OTHER SPECIFIED ABNORMAL FINDINGS OF BLOOD CHEMISTRY (8) Leukocytosis Code(s): D72.829 - ELEVATED WHITE BLOOD CELL COUNT, UNSPECIFIED Qualifiers: Leukocytosis type: leukemoid reaction Qualified Code(s): D72.823 - Leukemoid reaction Assessment/Plan A/ 41 yo woman with HTN, morbid obesity (BMI 45), asthma now with acute on chronic respiratory failure in setting of status asthmaticus requiring NIVPPV possibly 2/2 URI Echo: Normal biventricular size and fxn w/o sig valve abnl 1. Acute on chronic hypercapneic, hypoxic respiratory failure referable to asthma flare triggered by URI and requiring CPAP resolving 2. HTN/HCVD with urgency resolving 3. Suspect OSAS/OHS 4. Anemia 5. Demand ischemia 6. Sinus tachycardia 7. Abnormal LFTS due to demand ischemia 8. Leukocytosis referable to steroid use PLAN: 1. Continue present pulmonary treatment including CPAP and O2 2. Oral steroid taper, bronchodilator, empiric antibiotics d/ford and continue DVT prophylaxis 3. Continue Cardizem CD 300 qd and Accuretic 40/25 qd 4. Monitor Ca level and replete
== END 2016-11-16 19:36 | disposition home or self-care (01) | DRG 133 ==
LOC: JER 15:46 → JICU 20:05 → UNDOADMIN 21:21 → J5S 11-14 13:07
PROVIDERS: ADMIT Internal Medicine; ATTEND Internal Medicine
PROC: 5A09557 Assistance with Respiratory Ventilation, Greater than 96 Consecutive Hours, Continuous Positive Airway Pressure (ICD-10-PCS; principal; 2016-11-09)
DX: J96.22 Acute and chronic respiratory failure with hypercapnia (principal); J06.9 Acute upper respiratory infection, unspecified; J96.21 Acute and chronic respiratory failure with hypoxia; J45.52 Severe persistent asthma with status asthmaticus; E66.01 Morbid (severe) obesity due to excess calories; Z68.41 Body mass index [BMI] 40.0-44.9, adult; Z71.3 Dietary counseling and surveillance; R00.0 Tachycardia, unspecified; G47.33 Obstructive sleep apnea (adult) (pediatric); E83.51 Hypocalcemia; D72.823 Leukemoid reaction; I24.8 Other forms of acute ischemic heart disease; E11.65 Type 2 diabetes mellitus with hyperglycemia; D50.9 Iron deficiency anemia, unspecified; R74.0 Nonspecific elevation of levels of transaminase and lactic acid dehydrogenase [LDH]; J44.1 Chronic obstructive pulmonary disease with (acute) exacerbation; I16.0 Hypertensive urgency; I11.9 Hypertensive heart disease without heart failure; Z91.14 Patient's other noncompliance with medication regimen
CPT/HCPCS: 36415; 36600; 71010-TC; 71020-TC; 76705-TC; 80048; 80053; 80061; 82040; 82310; 82375; 82550; 82553; 82728; 82803; 82947; 83036; 83050; 83540; 83550; 83721; 83735; 83880; 83970; 84100; 84484; 84703; 85025; 85027; 85379; 87040; 87633; 93005; 93010; 93306-TC; 93970-TC; 94010; 94150; 94640; 94660; 94761; 99285-25

== ENCOUNTER 2017-03-23 15:56 | Inpatient (IN) | payer OTHER ==
--- NOTE | 2017-03-23 16:01 | PDOC ---
Rapid Medical Evaluation Chief Complaint: Asthma Time Seen by Provider: 03/23/17 15:57 Medical Evaluation: Allergies Allergy/AdvReac Type Severity Reaction Status Date / Time No Known Allergies Allergy Verified 03/23/17 15:57 03/23/17 16:00 The patient presents with a chief complaint of:sob and wheezing, hx asthma, no improvement with pump I have performed a brief in-person evaluation of this patient. Pertinent physical exam findings: hypoxia, exop wheeze raphael, + accessory muscle usage I have ordered the following: duoneb The patient will proceed to the ED for further evaluation. Discharge Disposition - Diagnosis Hypoxia - Referrals - Patient Instructions - Post Discharge Activity
[2017-03-23] MEDS ORDERED: methylPREDNISolone NA SUCC 125 MG/2 ML VIAL IVPB ONE (16:03)
--- NOTE | 2017-03-23 16:19 | PDOC ---
History of Present Illness - General Chief Complaint: Asthma Stated Complaint: SOB (ASTHMA) Time Seen by Provider: 03/23/17 15:57 - History of Present Illness Initial Comments: 03/23/17 16:31 Ms. Pappas is a 42 yo female w/ pmh w/ multiple admission for severe asthma ( although no intubations) 2015 admission for CAP, PE and asthma exacerbation, HTN , and morbid obesity, who presents c/o 4-5 days of progressive shortness of breath. She reports her symptoms started 4 days ago and have not been relieved with her home nebulizer. She denies any complicating factors but presents as she could no longer catch her breath. The patient denies chest pain, shortness of breath, headache and dizziness. Denies fever, chills, nausea, vomit, diarrhea and constipation. Denies dysuria, frequency, urgency and hematuria. Allergies: NKDA Past History - Past Medical History Allergies/Adverse Reactions: Allergies Allergy/AdvReac Type Severity Reaction Status Date / Time No Known Allergies Allergy Verified 03/23/17 15:57 Home Medications: Ambulatory Orders Albuterol 0.083% Nebulizer Kaitlyn [Ventolin 0.083% Nebulizer Soln -] 1 amp NEB Q4H PRN #1 inhaler 11/16/16 Albuterol 2.5/Ipratropium 0.5 [Duoneb -] 1 amp NEB Q4HPO #1 inhaler 11/16/16 Budesonide/Formeterol Fumarate [SYMBICORT 160/4.5mcg -] 1 puff IH BID #1 inhaler 11/16/16 Calcium Carbonate - 650 mg PO BID #60 tablet 11/16/16 Diltiazem Cd [Cardizem Cd -] 300 mg PO DAILY #30 tab 11/16/16 Docusate Sodium [Colace -] 100 mg PO DAILY cap 11/16/16 Ferrous Sulfate [Feosol] 325 mg PO BIDWM #60 cap 11/16/16 Hydrochlorothiazide 25 mg PO DAILY #30 tablet 11/16/16 Metformin HCl [Glucophage -] 500 mg PO BID@0700,1630 #60 tablet 11/16/16 Prednisone [Deltasone -] 10 mg PO DAILY #28 tablet 11/16/16 Quinapril HCl [Accupril -] 40 mg PO DAILY 30 Days tablet 11/16/16 Sennosides [Senna -] 1 tab PO HS tablet 11/16/16 Asthma: Yes COPD: No - Surgical History Cholecystectomy: Yes - Immunization History Immunization Up to Date: Yes - Suicide/Smoking/Psychosocial Hx Smoking Status: No (Both mother and brother smoke.) Smoking History: Never smoked Have you smoked in the past 12 months: No Information on smoking cessation initiated: No Hx Alcohol Use: No Drug/Substance Use Hx: No Substance Use Type: None Hx Substance Use Treatment: No Review of Systems - Review of Systems Comments:: 03/23/17 16:54 GENERAL/CONSTITUTIONAL: No fever or chills. No weakness. HEAD, EYES, EARS, NOSE AND THROAT: No change in vision. No ear pain or discharge. No sore throat. CARDIOVASCULAR: No chest pain RESPIRATORY: +Wheezing and shortness of breath as described GASTROINTESTINAL: No nausea, vomiting, diarrhea or constipation. GENITOURINARY: No dysuria, frequency, or change in urination. MUSCULOSKELETAL: No joint or muscle swelling or pain. No neck or back pain. SKIN: No rash NEUROLOGIC: No headache, vertigo, loss of consciousness, or change in strength/ sensation. ENDOCRINE: No increased thirst. No abnormal weight change HEMATOLOGIC/LYMPHATIC: No anemia, easy bleeding, or history of blood clots. ALLERGIC/IMMUNOLOGIC: No hives or skin allergy. *Physical Exam - Vital Signs Last Vital Signs Temp Pulse Resp BP Pulse Ox 98.6 F 120 H 26 H 195/127 69 L 03/23/17 15:58 03/23/17 15:58 03/23/17 15:58 03/23/17 15:58 03/23/17 15:58 - Physical Exam Comments: 03/23/17 16:55 GENERAL: Awake, alert, and fully oriented, in no acute distress HEAD: No signs of trauma, normocephalic, atraumatic EYES: PERRLA, EOMI, sclera anicteric, conjunctiva clear ENT: Auricles normal inspection, hearing grossly normal, nares patent, oropharynx clear without exudates. Moist mucosa NECK: Normal ROM, supple, no lymphadenopathy, JVD, or masses LUNGS: +Diffusely wheezy on auscultation HEART: Regular rate and rhythm, normal S1 and S2, no murmurs, rubs or gallops, peripheral pulses normal and equal bilaterally. ABDOMEN: Soft, nontender, normoactive bowel sounds. No guarding, no rebound. No masses EXTREMITIES: Normal inspection, Normal range of motion, no edema. No clubbing or cyanosis. NEUROLOGICAL: Cranial nerves II through XII grossly intact. Normal speech, normal gait, no focal sensorimotor deficits SKIN: Warm, Dry, normal turgor, no rashes or lesions noted. ED Treatment Course - LABORATORY CBC & Chemistry Diagram: 03/23/17 16:20 03/23/17 16:20 Medical Decision Making - Medical Decision Making 03/23/17 18:38 Ms. Pappas presents with acute asthma exacerbation brought on by right lower lobe infiltrate. IV antibiotics started. Patient has remained alert and oriented although SpO2 has fluctuated - was at 100% on non-rebreather but patient put on bipap as was growing fatigued. Currently resting comfortably on bipap. Will admit patient for continued treatment / observation. *DC/Admit/Observation/Transfer Diagnosis at time of Disposition: Hypoxia, Acute respiratory failure with hypoxia - Discharge Dispostion Condition at time of disposition: Guarded - Referrals Referrals: David Lorenzo MD [Primary Care Provider] - - Patient Instructions - Post Discharge Activity
[2017-03-23 16:28] LABS: BASOPHIL 0.7 % (0-2.0); EOSINOPHIL 0.1 % (0-4.5); MCH 26.4 pg (25.7-33.7); MCHC 31.7 g/dl (32.0-36.0); MEAN CELL VOLUME 83.1 fl (80-96); NEUTROPHILS 85.7 % (42.8-82.8); PLATELET COUNT 244 K/MM3 (134-434); RDW 16.9 % (11.6-15.6); WHITE BLOOD COUNT 15.3 K/mm3 (4.0-10.0)
[2017-03-23] MEDS: ALBUTEROL SO4 2.5/IPRATROPIUM 0.5 INH SOL 3 ML VIAL.NEB. NEB SCH ×4 (16:30→17:07)
[2017-03-23] MEDS ORDERED: ALBUTEROL SO4 2.5/IPRATROPIUM 0.5 INH SOL 3 ML VIAL.NEB. NEB ONE (16:44)
[2017-03-23] MEDS ORDERED: methylPREDNISolone NA SUCC 125 MG/2 ML VIAL ONE (16:46)
[2017-03-23 17:03] LABS: ALBUMIN 3.5 g/dl (3.4-5.0); ALK PHOS 138 U/L (45-117); ANION GAP 6 (8-16); BILIRUBIN,TOTAL 0.6 mg/dL (0.2-1.0); CO2 36 mmol/L (21-32); CREATININE 0.9 mg/dL (0.55-1.02); GLUCOSE,RANDOM 134 mg/dL (74-106); SGPT/ALT 60 U/L (12-78); TOT PROT 7.7 g/dl (6.4-8.2)
[2017-03-23] MEDS ORDERED: MAGNESIUM SULF 50% (8.12 MEQ/2 ML-1 GM VIAL) IVPB ONE (17:09)
[2017-03-23] MEDS ORDERED: AZITHROMYCIN IVPB 500 MG in DEXTROSE 5%-WATER - 250 ML IVPB ONE (17:16)
[2017-03-23] MEDS ORDERED: CEFTRIAXONE 1 GM in DEXTROSE 5%-WATER - 50 ML IVPB ONE (17:16)
--- NOTE | 2017-03-23 17:26 | PDOC ---
Attending Attestation - Resident Resident Name: Asim Heart - ED Attending Attestation I have performed the following: I have examined & evaluated the patient, The case was reviewed & discussed with the resident, I agree w/resident's findings & plan, Exceptions are as noted - HPI HPI: 03/23/17 17:21 42y/o F h/o intermittent severe asthma with hospitalization earlier this year but no intubations p/w 2d progressive cough/chest congestion/wheezing. no f/c. - Physicial Exam PE: 03/23/17 17:22 hypoxia, tachycardia, tachypnea. improved on supplemental O2 with 100% sat diffuse inspiratory and expiratory wheezing, prolonged expiration. slightly decreased BS at bases b/l no edema - Critical Care Time Total Critical Care Time: 85 Critical Care Statement: The care of this patient involved high complexity decision making to prevent further life threatening deterioration of the patient 's condition and/or to evaluate & treat vital organ system(s) failure or risk of failure. - Medical Decision Making 03/23/17 17:23 Patient seen and evaluated with the resident. I agree with the overall evaluation, assessment, and management with the following summary of visit: 42-year-old female with history of asthma p/w progressive asthma exacerbation, hypoxic respiratory distress. r/o underlying infectious process. labs, ekg cxr nebs, steroids, Mg supplemental O2 admit: possible ICU Discharge Disposition - Diagnosis Hypoxia, Acute respiratory failure with hypoxia - Discharge Dispostion Condition at time of disposition: Guarded Last Admission D/C Date: 11/16/16 - Referrals Referrals: David Lorenzo MD [Primary Care Provider] - - Patient Instructions - Post Discharge Activity
[2017-03-23] MEDS ORDERED: MAGNESIUM SULF 50% (8.12 MEQ/2 ML-1 GM VIAL) ONE (17:33)
[2017-03-23 17:34] LABS: SGOT/AST 46 U/L (15-37)
[2017-03-23 17:35] LABS: CALCIUM 6.7 mg/dL (8.5-10.1)
[2017-03-23] MEDS ORDERED: AZITHROMYCIN IVPB 250 ML IVPB ONE (18:23)
[2017-03-23] MEDS ORDERED: CEFTRIAXONE 1 GM/50 ML BAG ONE (18:23)
[2017-03-23] MEDS ORDERED: ALBUTEROL SO4 0.083% IH SOL 2.5 MG/3 ML VIAL.NEB. NEB PRN (19:44)
[2017-03-23] MEDS ORDERED: CALCIUM CARBONATE 650 MG TABLET PO ONE (20:00)
--- NOTE | 2017-03-23 20:14 | HP ---
<Jaden Razo - Last Filed: 03/23/17 23:37> CHIEF COMPLAINT: Shortness of breath PCP: Dr. Lorenzo HISTORY OF PRESENT ILLNESS: 42 yo F with pmh of severe asthma, 3 admissions in past 5 yrs, no intubations, 2015 admission for CAP, PE and asthma exacerbation, HTN, and morbid obesity presenting with SOB x 5 days. Patient states she began having worsening SOB over the last 5 days, initially upon exertion but now at rest. Patient has been using her albuterol inhaler/nebulizer 5x/day. She previously used to use the inhaler/nebulizer prn. Patient endorses sick contacts and wheezing. Patient denies fever, chills, sinus pressure, posterior nasal discharge, rhinorrhea, regurgitation, cough, chest pain, abdominal pain, dysuria, hematuria. ER course was notable for: (1) BP- 198/107, HR-110, RR-26, satting in 70s on RA, 80s on 4L, 100 on nrb, 100 % on bipap due to increased work of breathing (2) WBC- 15.3, Ca-6.7, Glucose- 134 (3) CXR- Possible small right lower lobe PNA Recent Travel: Denies PAST MEDICAL HISTORY: As per HPI PAST SURGICAL HISTORY: Denies Social History: Smoking: denies Alcohol: denies Drugs: denies Family History: Allergies No Known Allergies Allergy (Verified 03/23/17 15:57) HOME MEDICATIONS: Home Medications Medication Instructions Recorded Albuterol 2.5/Ipratropium 0.5 1 amp NEB Q4HPO #1 inhaler 11/16/16 [Duoneb -] REVIEW OF SYSTEMS CONSTITUTIONAL: Absent: fever, chills, diaphoresis, generalized weakness, malaise, loss of appetite, weight change HEENT: Absent: rhinorrhea, nasal congestion, throat pain, throat swelling, difficulty swallowing, mouth swelling, ear pain, eye pain, visual changes CARDIOVASCULAR: Absent: chest pain, syncope, palpitations, irregular heart rate, lightheadedness , peripheral edema RESPIRATORY: Absent: cough, shortness of breath, dyspnea with exertion, orthopnea, wheezing, stridor, hemoptysis GASTROINTESTINAL: Absent: abdominal pain, abdominal distension, nausea, vomiting, diarrhea, constipation, melena, hematochezia GENITOURINARY: Absent: dysuria, frequency, urgency, hesitancy, hematuria, flank pain, genital pain MUSCULOSKELETAL: Absent: myalgia, arthralgia, joint swelling, back pain, neck pain SKIN: Absent: rash, itching, pallor HEMATOLOGIC/IMMUNOLOGIC: Absent: easy bleeding, easy bruising, lymphadenopathy, frequent infections ENDOCRINE: Absent: unexplained weight gain, unexplained weight loss, heat intolerance, cold intolerance NEUROLOGIC: Absent: headache, focal weakness or paresthesias, dizziness, unsteady gait, seizure, mental status changes, bladder or bowel incontinence PSYCHIATRIC: Absent: anxiety, depression, suicidal or homicidal ideation, hallucinations. PHYSICAL EXAMINATION Vital Signs - 24 hr 03/23/17 03/23/17 03/23/17 15:58 17:07 17:15 Temperature 98.6 F Pulse Rate 120 H Pulse Rate [ 114 H Radial] Respiratory 26 H 32 H 26 H Rate Blood Pressure 195/127 Blood Pressure 190/112 [Left Arm] O2 Sat by Pulse 69 L 79 L 99 Oximetry (%) 03/23/17 03/23/17 03/23/17 17:50 18:10 18:15 Temperature Pulse Rate 110 H Pulse Rate [ 111 H 110 H Radial] Respiratory 26 H 28 H Rate Blood Pressure Blood Pressure 156/86 198/107 [Left Arm] O2 Sat by Pulse 87 L 100 99 Oximetry (%) 03/23/17 03/23/17 18:37 18:55 Temperature Pulse Rate 110 H Pulse Rate [ 110 H Radial] Respiratory 26 H Rate Blood Pressure Blood Pressure 174/97 [Left Arm] O2 Sat by Pulse 95 100 Oximetry (%) GENERAL: Awake, alert, and fully oriented, in mild distress. Patient on BiPap HEAD: Normal with no signs of trauma. EYES: Pupils equal, round and reactive to light, extraocular movements intact, sclera anicteric, conjunctiva clear. No lid lag. NECK: Normal range of motion, supple without lymphadenopathy, JVD, or masses. LUNGS: Decreased breath sounds, Poor air movement, Lungs clear to auscultation bilaterally. No wheezes, and no crackles. No accessory muscle use. HEART: Tachycardic, normal S1 and S2 without murmur, rub or gallop. ABDOMEN: Soft, nontender, not distended, normoactive bowel sounds, no guarding, no rebound, no masses. No hepatomegaly or splenomegaly. MUSCULOSKELETAL: Normal range of motion at all joints. No bony deformities or tenderness. No CVA tenderness. UPPER EXTREMITIES: 2+ pulses, warm, well-perfused. No cyanosis. No clubbing. No peripheral edema. LOWER EXTREMITIES: 2+ pulses, warm, well-perfused. No calf tenderness. No peripheral edema. NEUROLOGICAL: Cranial nerves II-XII intact. Normal speech. Normal gait. PSYCHIATRIC: Cooperative. Good eye contact. Appropriate mood and affect. SKIN: Warm, dry, normal turgor, no rashes or lesions noted, normal capillary refill. Laboratory Results - last 24 hr 03/23/17 03/23/17 16:20 16:20 WBC 15.3 H RBC 4.04 Hgb 10.7 Hct 33.6 MCV 83.1 MCH 26.4 MCHC 31.7 L RDW 16.9 H Plt Count 244 MPV 9.0 Neutrophils % 85.7 H D Lymphocytes % 8.5 D Monocytes % 5.0 Eosinophils % 0.1 D Basophils % 0.7 D Sodium 135 L Potassium 4.0 Chloride 93 L Carbon Dioxide 36 H Anion Gap 6 L BUN 14 D Creatinine 0.9 D Creat Clearance w eGFR > 60 Random Glucose 134 H Calcium 6.7 L* Total Bilirubin 0.6 D AST 46 H D ALT 60 Alkaline Phosphatase 138 H D Total Protein 7.7 Albumin 3.5 ASSESSMENT/PLAN: 42 yo F with pmh of severe asthma, 2 admissions in past 5 yrs, no intubations, 2014 admission for CAP, PE and asthma exacerbation, HTN, DM, and morbid obesity admitted for acute hypoxic respiratory failure. #Acute hypoxic respiratory failure 2/2 acute asthma exacerbation with superimposed CAP -Patient on home O2-4L -Pulmonary consult, Dr. Moore -Albuterol q4h prn -Duonebs 1 amp qidr -Azithromycin 500 mg ivpb daily -Ceftriaxone 1g ivpb daily -Symbicort 160/4.5 1 inh bid -IV solumederol 80 mg q6h -Singulair 10 mg po hs -Continue Bipap as needed -Daily peak flow #HTN -Vasotec 5 mg po daily #DM -BGM ACHS -ISS -A1c pending #Hypocalcemia -Calcium gluconate 1000mg IV -Continue to monitor #FEN/GI -No Fluids -wnl, monitor -Sodium/Diabetic diet #PPx -Heparin 5000 u q8h -No gi ppx indicated Case discussed with team Visit type - Emergency Visit Emergency Visit: Yes ED Registration Date: 03/23/17 Care time: The patient presented to the Emergency Department on the above date and was hospitalized for further evaluation of their emergent condition. - New Patient This patient is new to me today: Yes Date on this admission: 03/23/17 - Critical Care Critical Care patient: No <Maryjo Maya - Last Filed: 03/23/17 23:59> CHIEF COMPLAINT: PCP: HISTORY OF PRESENT ILLNESS: ER course was notable for: (1) (2) (3) Recent Travel: PAST MEDICAL HISTORY: PAST SURGICAL HISTORY: Social History: Smoking: Alcohol: Drugs: Family History: Allergies No Known Allergies Allergy (Verified 03/23/17 15:57) HOME MEDICATIONS: Home Medications Medication Instructions Recorded Albuterol 2.5/Ipratropium 0.5 1 amp NEB Q4HPO #1 inhaler 11/16/16 [Duoneb -] REVIEW OF SYSTEMS CONSTITUTIONAL: Absent: fever, chills, diaphoresis, generalized weakness, malaise, loss of appetite, weight change HEENT: Absent: rhinorrhea, nasal congestion, throat pain, throat swelling, difficulty swallowing, mouth swelling, ear pain, eye pain, visual changes CARDIOVASCULAR: Absent: chest pain, syncope, palpitations, irregular heart rate, lightheadedness , peripheral edema RESPIRATORY: Absent: cough, shortness of breath, dyspnea with exertion, orthopnea, wheezing, stridor, hemoptysis GASTROINTESTINAL: Absent: abdominal pain, abdominal distension, nausea, vomiting, diarrhea, constipation, melena, hematochezia GENITOURINARY: Absent: dysuria, frequency, urgency, hesitancy, hematuria, flank pain, genital pain MUSCULOSKELETAL: Absent: myalgia, arthralgia, joint swelling, back pain, neck pain SKIN: Absent: rash, itching, pallor HEMATOLOGIC/IMMUNOLOGIC: Absent: easy bleeding, easy bruising, lymphadenopathy, frequent infections ENDOCRINE: Absent: unexplained weight gain, unexplained weight loss, heat intolerance, cold intolerance NEUROLOGIC: Absent: headache, focal weakness or paresthesias, dizziness, unsteady gait, seizure, mental status changes, bladder or bowel incontinence PSYCHIATRIC: Absent: anxiety, depression, suicidal or homicidal ideation, hallucinations. PHYSICAL EXAMINATION Vital Signs - 24 hr 03/23/17 03/23/17 03/23/17 15:58 17:07 17:15 Temperature 98.6 F Pulse Rate 120 H Pulse Rate [ 114 H Radial] Respiratory 26 H 32 H 26 H Rate Blood Pressure 195/127 Blood Pressure 190/112 [Left Arm] O2 Sat by Pulse 69 L 79 L 99 Oximetry (%) 03/23/17 03/23/17 03/23/17 17:50 18:10 18:15 Temperature Pulse Rate 110 H Pulse Rate [ 111 H 110 H Radial] Respiratory 26 H 28 H Rate Blood Pressure Blood Pressure 156/86 198/107 [Left Arm] O2 Sat by Pulse 87 L 100 99 Oximetry (%) 03/23/17 03/23/17 03/23/17 18:37 18:55 20:57 Temperature Pulse Rate 110 H Pulse Rate [ 110 H 108 H Radial] Respiratory 26 H 25 H Rate Blood Pressure Blood Pressure 174/97 190/99 [Left Arm] O2 Sat by Pulse 95 100 100 Oximetry (%) GENERAL: Awake, alert, and fully oriented, in no acute distress. HEAD: Normal with no signs of trauma. EYES: Pupils equal, round and reactive to light, extraocular movements intact, sclera anicteric, conjunctiva clear. No lid lag. EARS, NOSE, THROAT: Ears normal, nares patent, oropharynx clear without exudates. Moist mucous membranes. NECK: Normal range of motion, supple without lymphadenopathy, JVD, or masses. LUNGS: Breath sounds equal, clear to auscultation bilaterally. No wheezes, and no crackles. No accessory muscle use. HEART: Regular rate and rhythm, normal S1 and S2 without murmur, rub or gallop. ABDOMEN: Soft, nontender, not distended, normoactive bowel sounds, no guarding, no rebound, no masses. No hepatomegaly or splenomegaly. MUSCULOSKELETAL: Normal range of motion at all joints. No bony deformities or tenderness. No CVA tenderness. UPPER EXTREMITIES: 2+ pulses, warm, well-perfused. No cyanosis. No clubbing. No peripheral edema. LOWER EXTREMITIES: 2+ pulses, warm, well-perfused. No calf tenderness. No peripheral edema. NEUROLOGICAL: Cranial nerves II-XII intact. Normal speech. Normal gait. PSYCHIATRIC: Cooperative. Good eye contact. Appropriate mood and affect. SKIN: Warm, dry, normal turgor, no rashes or lesions noted, normal capillary refill. Laboratory Results - last 24 hr 03/23/17 03/23/17 16:20 16:20 WBC 15.3 H RBC 4.04 Hgb 10.7 Hct 33.6 MCV 83.1 MCH 26.4 MCHC 31.7 L RDW 16.9 H Plt Count 244 MPV 9.0 Neutrophils % 85.7 H D Lymphocytes % 8.5 D Monocytes % 5.0 Eosinophils % 0.1 D Basophils % 0.7 D Sodium 135 L Potassium 4.0 Chloride 93 L Carbon Dioxide 36 H Anion Gap 6 L BUN 14 D Creatinine 0.9 D Creat Clearance w eGFR > 60 Random Glucose 134 H Calcium 6.7 L* Total Bilirubin 0.6 D AST 46 H D ALT 60 Alkaline Phosphatase 138 H D Total Protein 7.7 Albumin 3.5 ASSESSMENT/PLAN: I saw and evaluated the patient. I reviewed the resident's note and discussed the case with the resident. I agree with the resident's findings and plan as documented. 42 year old female with history of asthma , not on any appropriate maintenance therapy , appears to have a component of sleep apnea, c/o wheezing and sob Was hypoxic upon arrival , which improved after administration of IV Solumedrol and initiation of BiPAp treatment. Vital Signs Temperature 98.6 F 03/23/17 15:58 Pulse Rate 108 H 03/23/17 20:57 Respiratory Rate 25 H 03/23/17 20:57 Blood Pressure 190/99 03/23/17 20:57 O2 Sat by Pulse Oximetry (%) 100 03/23/17 20:57 LUNGS: Breath sounds equal, clear to auscultation bilaterally. No wheezes, and no crackles. . HEART: Regular rate and rhythm, normal S1 and S2 without murmur, rub or gallop. CBC, BMP EXT - 1 plus pedal edema 03/23/17 16:20 03/23/17 16:20 A/P 42 year old with acute hypoxemic respiratory failure due to acute asthma exacerbation and RLL community aquired pneumonia that is requiring high dose IV steroids , non invasive ventilatory support, oxygen supplementation Had recent hospitalization with asthma exacerbation Has spoor adherence to post discharge asthma regimen Will admit IV steroids q 6 with slow taper IV antibiotics for CAP O2 Nebs around the clock Agree with plan above
[2017-03-23] MEDS ORDERED: CALCIUM GLUCONATE 10% - 1,000 MG/10 ML VIAL ONE (20:29)
[2017-03-23] MEDS ORDERED: methylPREDNISolone NA SUCC 40 MG/1 ML VIAL ONE (20:30)
[2017-03-23] MEDS ORDERED: ENALAPRIL MALEATE 5 MG TABLET (FP) ONE (20:30)
[2017-03-23] MEDS ORDERED: CALCIUM GLUCONATE 10% - 1,000 MG/10 ML VIAL IVPUSH ONE (20:30)
[2017-03-23] MEDS: ENALAPRIL MALEATE 5 MG TABLET (FP) PO SCH (20:46)
[2017-03-23] MEDS: methylPREDNISolone NA SUCC 125 MG/2 ML VIAL IVPUSH SCH (20:46)
[2017-03-23] MEDS ORDERED: MONTELUKAST NA 5 MG TAB.CHEW PO SCH (22:00)
[2017-03-23] MEDS ORDERED: HEPARIN NA (PORCINE) 5,000 UNITS/ML 1ML VIAL ONE (23:12)
[2017-03-23] MEDS: HEPARIN NA (PORCINE) 5,000 UNITS/ML 1ML VIAL SQ SCH (23:25)
[2017-03-23] MEDS: INSULIN SLIDING SCALE (NOVOLOG) 1 VIAL SQ SCH (23:26)
[2017-03-23] MEDS: BUDESONIDE/FORMETEROL FUMARATE 160/4.5 mcg INHALER IH SCH (23:33)
[2017-03-23] MEDS: MONTELUKAST NA 10 MG TABLET PO SCH (23:34)
[2017-03-24] MEDS: ALBUTEROL SO4 2.5/IPRATROPIUM 0.5 INH SOL 3 ML VIAL.NEB. NEB SCH ×4 (00:30→17:43)
[2017-03-24 02:01] VITALS: BMI 44.8
[2017-03-24] MEDS: methylPREDNISolone NA SUCC 125 MG/2 ML VIAL IVPUSH SCH ×2 (04:06→10:31)
[2017-03-24] MEDS: INSULIN SLIDING SCALE (NOVOLOG) 1 VIAL SQ SCH ×4 (06:01→21:24)
[2017-03-24] MEDS: HEPARIN NA (PORCINE) 5,000 UNITS/ML 1ML VIAL SQ SCH ×3 (06:03→21:23)
[2017-03-24 09:13] LABS: BASOPHIL 0.1 % (0-2.0); MCH 26.4 pg (25.7-33.7); MCHC 31.8 g/dl (32.0-36.0); MEAN CELL VOLUME 82.9 fl (80-96); MEAN PLT VOLUME 8.9 fl (7.5-11.1); NEUTROPHILS 94.3 % (42.8-82.8); PLATELET COUNT 210 K/MM3 (134-434); RDW 16.4 % (11.6-15.6); WHITE BLOOD COUNT 10.2 K/mm3 (4.0-10.0)
[2017-03-24 09:37] LABS: ANION GAP 6 (8-16); CALCIUM 7.2 mg/dL (8.5-10.1); CO2 36 mmol/L (21-32); CREATININE 0.9 mg/dL (0.55-1.02); GLUCOSE,RANDOM 142 mg/dL (74-106); MAGNESIUM 2.7 mg/dL (1.8-2.4); PHOSPHOROUS 5.5 mg/dL (2.5-4.9)
[2017-03-24] MEDS ORDERED: CEFTRIAXONE 1 GM in DEXTROSE 5%-WATER - 50 ML IVPB SCH (10:00)
[2017-03-24] MEDS: CALCIUM CARBONATE 650 MG TABLET PO SCH ×2 (10:33→21:23)
[2017-03-24] MEDS: CEFTRIAXONE 1 G/50 ML PREMIX 50 ML IVPB SCH (10:36)
--- NOTE | 2017-03-24 10:44 | EKG ---
Test Reason : Blood Pressure : / mmHG Vent. Rate : 113 BPM Atrial Rate : 113 BPM P-R Int : 148 ms QRS Dur : 070 ms QT Int : 354 ms P-R-T Axes : 055 042 035 degrees QTc Int : 485 ms SINUS TACHYCARDIA POSSIBLE LEFT ATRIAL ENLARGEMENT ANTEROSEPTAL INFARCT (CITED ON OR BEFORE 15-AUG-2014) ABNORMAL ECG WHEN COMPARED WITH ECG OF 10-NOV-2016 11:08, NO SIGNIFICANT CHANGE WAS FOUND Confirmed by MD SARAH, BUBBA ([id number]) on 03/24/2017 10:43:55 AM Referred By: Confirmed By:BUBBA SMITH MD
[2017-03-24] MEDS: AZITHROMYCIN IVPB 500 MG in DEXTROSE 5%-WATER - 250 ML IVPB SCH (11:47)
[2017-03-24] MEDS: ENALAPRIL MALEATE 5 MG TABLET (FP) PO SCH (11:48)
[2017-03-24] MEDS: BUDESONIDE/FORMETEROL FUMARATE 160/4.5 mcg INHALER IH SCH ×2 (11:48→21:24)
--- NOTE | 2017-03-24 13:22 | CON.PULM ---
Consult Consult Specialty:: PULMONARY Referred by:: RUCHI Reason for Consultation:: SOB/COUGH - History of Present Illness Chief Complaint: SOB/COUGH/WHEEZE History of Present Illness: Ms. Pappas is a 42 yo female w/ pmh w/ multiple admission for severe asthma ( although no intubations) 2015 admission for CAP, PE and asthma exacerbation, HTN , and morbid obesity, who presents c/o 4-5 days of progressive shortness of breath. She reports her symptoms started 4 days ago and have not been relieved with her home nebulizer. She denies any complicating factors but presents as she could no longer catch her breath. 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: Alzheimer's Cardio/Vascular: Yes: HTN Pulmonary: Yes: Asthma Gastrointestinal: No: Ascites Hepatobiliary: No: Cirrhosis Renal/: No: Renal Failure ...LMP: 08/08/14 Heme/Onc: Yes: Anemia - Past Surgical History Past Surgical History: Yes: Cholecystectomy - Alcohol/Substance Use Hx Alcohol Use: No History of Substance Use: reports: None - Smoking History Smoking history: Never smoked Have you smoked in the past 12 months: No - Social History ADL: Family Assistance History of Recent Travel: No Home Medications - Allergies Allergies/Adverse Reactions: Allergies Allergy/AdvReac Type Severity Reaction Status Date / Time No Known Allergies Allergy Verified 03/23/17 15:57 - Home Medications Home Medications: Ambulatory Orders Albuterol 2.5/Ipratropium 0.5 [Duoneb -] 1 amp NEB Q4HPO #1 inhaler 11/16/16 Family Disease History - Family Disease History Family Disease History: Heart Disease: Mother (HTN, Asthma), Respiratory: Mother Review of Systems - Review of Systems Cardiovascular: denies: Chest Pain Respiratory: reports: Cough, Exercise Intolerance, SOB, SOB on Exertion, Wheezing Gastrointestinal: reports: No Symptoms Physical Exam Vital Sings: Vital Signs Temperature 97.6 F 03/24/17 05:57 Pulse Rate 109 H 03/24/17 11:10 Respiratory Rate 20 03/24/17 09:00 Blood Pressure 185/97 03/24/17 09:00 O2 Sat by Pulse Oximetry (%) 97 03/24/17 11:46 Constitutional: Yes: Anxious Eyes: Yes: EOM Intact HENT: Yes: Normocephalic Neck: Yes: Trachea Midline Cardiovascular: Yes: Regular Rate and Rhythm Respiratory: Yes: Diminished Gastrointestinal: Yes: Normal Bowel Sounds, Abdomen, Obese Renal/: Yes: WNL Breast(s): Yes: WNL Musculoskeletal: Yes: WNL Extremities: Yes: WNL Edema: No Neurological: Yes: Alert Labs: CBC, BMP 03/24/17 08:00 03/24/17 08:00 REST REVIEWED Imaging - Results Chest X-ray: Report Reviewed, Image Reviewed Problem List - Problems (1) Asthma Code(s): J45.909 - UNSPECIFIED ASTHMA, UNCOMPLICATED (2) Acute respiratory failure with hypoxia Code(s): J96.01 - ACUTE RESPIRATORY FAILURE WITH HYPOXIA (3) Hypoxia Code(s): R09.02 - HYPOXEMIA (4) Acute and chronic respiratory failure with hypercapnia Code(s): J96.22 - ACUTE AND CHRONIC RESPIRATORY FAILURE WITH HYPERCAPNIA (5) Anemia Code(s): D64.9 - ANEMIA, UNSPECIFIED Assessment/Plan A/E B. ASTHMA LIKELY DUE TO ACUTE BRONCHITIS NO EVIDENCE TO SUPPORT PNEUMONIA INFLUENZA NASAL SWAB IGE LEVEL SPUTUM GRAM STAIN/CULTURE ANTIBIOTICS/PROMISE/LABA/ICS/SYSTEMIC STEROIDS DAILY PEAK FLOW/O2 Eugene SOLIS MD
[2017-03-24] MEDS ORDERED: ALBUTEROL SO4 0.083% IH SOL 2.5 MG/3 ML VIAL.NEB. NEB PRN (13:27)
[2017-03-24] MEDS ORDERED: SENNOSIDES 8.6MG TABLET (FP) PO PRN (14:29)
[2017-03-24] MEDS ORDERED: DOCUSATE SODIUM 100 MG CAPSULE (FP) PO PRN (14:29)
--- NOTE | 2017-03-24 16:16 | MSN ---
Progress Note (short form) - Note Progress Note: SUBJECTIVE 42 yo F with PMhx of severe asthma, HTN, morbid obesity, and DM who presented to the ED with worsening of SOB for the past week. Per pt, the SOB seems to have been triggered from an incense smell being used at a restaurant that she visited a week ago. The SOB has worsened throughout the week, with the worse being yesterday where she felt like she couldn't breathe and felt "weird" which prompted her to come to the ED. She has prior admissions for asthma exacerbations and pneumonia. She has never been intubated before. Pt states she has been using her albuterol inhaler twice a day everyday for the past week, without much relief. Pt states she normally uses her inhaler only when shes wheezing. Pt also confirms having sick contact and subsequently feeling like "she was coming down with something." Per pt, she is feeling a lot better than when she came in and her SOB seems to be improving. Pt has been having a dry, very infrequent cough as well. Patient denies CP, palpitations, FLORES, dizziness, fever, chills, rhinorrhea, sore throat, abdominal pain, or any urinary symptoms. OBJECTIVE Last Vital Signs Temp Pulse Resp BP Pulse Ox 98.0 F 104 H 22 151/97 95 03/24/17 14:00 03/24/17 15:07 03/24/17 14:00 03/24/17 14:00 03/24/17 15:07 GEN: AOX3, NAD HEENT: PERRLA, EOMI CV: RRR S1 S2 No MRG LUNG: decreased breath sounds, likely due to body habitus; no use of accessory muscle noted; ABD: +bowel sounds, soft, ND, NT MSK: normal ROM UE and LE b/l; 5/5 strength UE and LE b/l; pulses present; sensation intact NEURO: CN II-XII grossly intact Laboratory Last Values WBC 10.2 K/mm3 (4.0-10.0) H D 03/24/17 08:00 RBC 3.67 M/mm3 (3.60-5.2) 03/24/17 08:00 Hgb 9.7 GM/dL (10.7-15.3) L 03/24/17 08:00 Hct 30.4 % (32.4-45.2) L 03/24/17 08:00 MCV 82.9 fl (80-96) 03/24/17 08:00 MCH 26.4 pg (25.7-33.7) 03/24/17 08:00 MCHC 31.8 g/dl (32.0-36.0) L 03/24/17 08:00 RDW 16.4 % (11.6-15.6) H 03/24/17 08:00 Plt Count 210 K/MM3 (134-434) 03/24/17 08:00 MPV 8.9 fl (7.5-11.1) 03/24/17 08:00 Neutrophils % 94.3 % (42.8-82.8) H 03/24/17 08:00 Lymphocytes % 5.1 % (8-40) L D 03/24/17 08:00 Monocytes % 0.5 % (3.8-10.2) L D 03/24/17 08:00 Eosinophils % 0.0 % (0-4.5) D 03/24/17 08:00 Basophils % 0.1 % (0-2.0) 03/24/17 08:00 Sodium 138 mmol/L (136-145) 03/24/17 08:00 Potassium 4.5 mmol/L (3.5-5.1) 03/24/17 08:00 Chloride 96 mmol/L (98-107) L 03/24/17 08:00 Carbon Dioxide 36 mmol/L (21-32) H 03/24/17 08:00 Anion Gap 6 (8-16) L 03/24/17 08:00 BUN 17 mg/dL (7-18) D 03/24/17 08:00 Creatinine 0.9 mg/dL (0.55-1.02) 03/24/17 08:00 Creat Clearance w eGFR > 60 (>60) 03/23/17 16:20 POC Glucometer 187 UNITS (80-120) 03/24/17 11:22 Random Glucose 142 mg/dL (74-106) H 03/24/17 08:00 Hemoglobin A1c % 6.5 % (4.8-6.0) H D 03/24/17 08:00 Calcium 7.2 mg/dL (8.5-10.1) L 03/24/17 08:00 Phosphorus 5.5 mg/dL (2.5-4.9) H 03/24/17 08:00 Magnesium 2.7 mg/dL (1.8-2.4) H D 03/24/17 08:00 Total Bilirubin 0.6 mg/dL (0.2-1.0) D 03/23/17 16:20 AST 46 U/L (15-37) H D 03/23/17 16:20 ALT 60 U/L (12-78) 03/23/17 16:20 Alkaline Phosphatase 138 U/L (45-117) H D 03/23/17 16:20 Total Protein 7.7 g/dl (6.4-8.2) 03/23/17 16:20 Albumin 3.5 g/dl (3.4-5.0) 03/23/17 16:20 Home Medications Medication Instructions Recorded Albuterol 2.5/Ipratropium 0.5 1 amp NEB Q4HPO #1 inhaler 11/16/16 [Duoneb -] Albuterol 0.083% Nebulizer Kaitlyn 1 amp NEB Q4H PRN 03/24/17 [Ventolin 0.083% Nebulizer Soln -] Budesonide/Formeterol Fumarate 1 puff IH BID 03/24/17 [SYMBICORT 160/4.5mcg -] Calcium Carbonate 650 mg PO BID 03/24/17 Diltiazem HCl [Cartia Xt] 300 mg PO DAILY 03/24/17 Docusate Sodium [Colace -] 100 mg PO DAILY 03/24/17 Ferrous Sulfate [Feosol] 325 mg PO BID 03/24/17 Hydrochlorothiazide [Hctz -] 25 mg PO DAILY 03/24/17 Metformin HCl 500 mg PO BID 03/24/17 Quinapril HCl [Accupril -] 40 mg PO DAILY 03/24/17 Sennosides [Senna -] 1 tab PO HS 03/24/17 Current Medications Albuterol Sulfate (Ventolin 0.083% Nebulizer Soln -) 1 amp NEB Q1H PRN PRN Reason: SHORT OF BREATH/WHEEZING Albuterol/Ipratropium (Duoneb -) 1 amp NEB QIDR ALICJA Last Admin: 03/24/17 11:10 Dose: 1 amp Budesonide/Formoterol Fumarate (Symbicort 160/4.5mcg -) 1 puff IH BID [facility] Last Admin: 03/24/17 11:48 Dose: 1 mcg Calcium Carbonate (Calcium Carbonate -) 650 mg PO BID [facility] Last Admin: 03/24/17 10:33 Dose: 650 mg Diltiazem HCl (Cardizem Cd -) 300 mg PO DAILY [facility] Last Admin: 03/24/17 11:48 Dose: 300 mg Docusate Sodium (Colace -) 100 mg PO DAILY PRN PRN Reason: CONSTIPATION Ferrous Sulfate (Feosol -) 325 mg PO BIDWM [facility] Heparin Sodium (Porcine) (Heparin -) 5,000 unit SQ TID [facility] Last Admin: 03/24/17 14:49 Dose: 5,000 unit Hydrochlorothiazide (Hctz -) 25 mg PO DAILY [facility] Azithromycin 500 mg/ Dextrose 250 mls @ 250 mls/hr IVPB DAILY [facility] Last Admin: 03/24/17 11:47 Dose: 250 mls/hr CEFTRIAXONE 1 G/50 ML PREMIX (Ceftriaxone 1 Gm-D5w Bag) 50 mls @ 100 mls/hr IVPB DAILY [facility] Last Admin: 03/24/17 10:36 Dose: 100 mls/hr Insulin Aspart (Novolog Vial Sliding Scale -) 1 vial SQ ACHS [facility] PRN Reason: Protocol Last Admin: 03/24/17 11:49 Dose: Not Given Methylprednisolone Sodium Succinate (Solu-Medrol -) 60 mg IVPUSH Q8H-IV [facility] Montelukast Sodium (Singulair -) 10 mg PO HS [facility] Last Admin: 03/23/17 23:34 Dose: 10 mg Quinapril HCl (Accupril -) 40 mg PO DAILY [facility] Senna (Senna -) 1 tab PO HS PRN PRN Reason: CONSTIPATION AP 42 yo F with PMhx of severe asthma, HTN, morbid obesity, and DM who presented to the ED with worsening of SOB for the past week, admitted for acute hypoxic respiratory failure, likely secondary to acute asthma exacerbation. 1. Acute hypoxic respiratory failure, likely 2/2 to acute asthma exacerbation with superimposed CAP -CXR showed small R lower lobe infiltrate -uses albuterol inhaler at home and on 4 L home O2 but rarely uses the oxygen -on singulair, duonebs, albuterol -IV solumedrol decreased from 80 mg Q4H to 60mg Q8H -on nasal cannula with 6 L humidified O2; will advance to ventimask considering results of ABG, frequent O2 sats, and pt's clinincal status -Bipap at night -ceftriaxone 1g/azithromycin 500 mg for possible pneumonia treatment but seems unlikely given CXR and clinical symptoms 2. HTN urgency -195/127 on presentation -started on cardezem, acupril, and HCTZ; seems to be better controlled with meds 3. Hypocalcemia -6.7 this AM; repleted with Calcium carbonate -continue pt's home Ca supplements 4. DM -HbA1c: 6.5 -ISS; BGM ACHS 5. FEN -no ICFs -lytes wnl; replete as necessary -renal diet 6. PPx -DVT: Heparin 5000u SQ TID -No GI PPx Dispo: On 6 L O2 via nasal cannula; might advance to ventimask pending ABGs and pt's clinical status Marylu Herron, MS3
--- NOTE | 2017-03-24 16:31 | PN ---
Physical Exam: SUBJECTIVE: Patient seen and examined. States she feels better. Less SOB. She is breathing comfortably. No CP, No fevers, no chills. OBJECTIVE: Vital Signs Period Temp Pulse Resp BP Sys/Muniz Pulse Ox Last 24 Hr 97.6 F-98.2 F 88-116 18-32 148-198/86-112 79-100 GEN: AAOx3, Not in respiratory distress, breathing comfortable. Obese. HEENT: PERRLA, EOMi CV: S1, S2, RRR LUNG: Decreased lung sounds likely due to habitus, mild wheezes ABD: Soft, NT, ND, normoactive BS MSK: No edema, no erythema NEURO: Fully neurologically intact Active Medications Generic Name Dose Route Start Last Admin Trade Name Freq PRN Reason Stop Dose Admin Albuterol Sulfate 1 amp 03/24/17 13:27 Ventolin 0.083% Nebulizer Soln - NEB Q1H PRN SHORT OF BREATH/WHEEZING Albuterol/Ipratropium 1 amp 03/24/17 00:00 03/24/17 11:10 Duoneb - NEB 1 amp QIDR ALICJA Administration Budesonide/Formoterol Fumarate 1 puff 03/23/17 22:00 03/24/17 11:48 Symbicort 160/4.5mcg - IH 1 mcg BID LAICJA Administration Calcium Carbonate 650 mg 03/24/17 10:00 03/24/17 10:33 Calcium Carbonate - PO 650 mg BID ALICJA Administration Diltiazem HCl 300 mg 03/24/17 10:00 03/24/17 11:48 Cardizem Cd - PO 300 mg DAILY ALICJA Administration Docusate Sodium 100 mg 03/24/17 14:29 Colace - PO DAILY PRN CONSTIPATION Ferrous Sulfate 325 mg 03/24/17 17:30 Feosol - PO BIDWM ALICJA Heparin Sodium (Porcine) 5,000 unit 03/23/17 22:00 03/24/17 14:49 Heparin - SQ 5,000 unit TID ALICJA Administration Hydrochlorothiazide 25 mg 03/24/17 14:45 Hctz - PO DAILY ALICJA Azithromycin 500 mg/ Dextrose 250 mls @ 250 mls/hr 03/24/17 10:00 03/24/17 11 :47 IVPB 250 mls/hr DAILY ALICJA Administration CEFTRIAXONE 1 G/50 ML PREMIX 50 mls @ 100 mls/hr 12/08/17 10:00 03/24/17 10: 36 Ceftriaxone 1 Gm-D5w Bag IVPB 100 mls/hr DAILY ALICJA Administration Insulin Aspart 1 vial 03/23/17 22:00 03/24/17 11:49 Novolog Vial Sliding Scale - SQ Not Given ACHS ALICJA Protocol Methylprednisolone Sodium Succinate 60 mg 03/24/17 18:00 Solu-Medrol - IVPUSH Q8H-IV ALICJA Montelukast Sodium 10 mg 03/23/17 23:15 03/23/17 23:34 Singulair - PO 10 mg HS ALICJA Administration Quinapril HCl 40 mg 03/24/17 15:00 Accupril - PO DAILY ALICJA Senna 1 tab 03/24/17 14:29 Senna - PO HS PRN CONSTIPATION ASSESSMENT/PLAN: 42 yo F with pmh of severe asthma, 2 admissions in past 5 yrs, no intubations, 2014 admission for CAP, PE and asthma exacerbation, HTN, DM, and morbid obesity admitted for acute hypoxic respiratory failure. # Acute Hypoxic Respiratory Failure - 2/2 asthma exacerbation - Pt endorses recent triggers (incense + cold weather + not compliant with home 4L O2 NC). Titrate down IV Medrol 60 Q8. Nebs PRN. Symbicort BID. Singulair 10 HS - Will continue Azithromycin 500 daily + Rocephin 1 daily though superimposed CAP is less likely - Patient is now comfortable on O2 6L NC. Sats low 90s. Will get ABG this afternoon, if shows more of acute on chronic resp acidosis will consider titrating up O2 on ventimask. If patient has increased work of breathing, place on BiPAP; pt also needs nightly BiPAP for underlying JENNIFER. # JENNIFER - Diagnosed with sleep study. Continue nightly BiPAP # HTN Urgency - Resolved. Patient was discharged on 3 home meds last hospitalization, but did not continue them at home. Will continue Accupril 40 daily, HCTZ 25 daily, and Cardizem 300 daily # NIDDM - A1C 6.5. Hold home Metformin, Continue BGM + ISS ACHS # Hypocalcemia - Continue home calcium supplements # FEN - No IVF, elec wnl, sodium/diabetic diet # PPX - HSQ TID, No GI, PT ordered # Dispo - Continue Medrol taper. Watch O2 carefully. ABG 5pm. BipAP nightly. d/w Dr Shayne Garcia, Resident MD - PGY1 Internal Medicine Visit type - Emergency Visit Emergency Visit: No - New Patient This patient is new to me today: No - Critical Care Critical Care patient: No - Discharge Referral Referred to [facility] Med P.C.: No
[2017-03-24] MEDS: methylPREDNISolone NA SUCC 40 MG/1 ML VIAL IVPUSH SCH (17:06)
[2017-03-24] MEDS: HYDROCHLOROTHIAZIDE 25 MG TABLET (FP) PO SCH (17:06)
[2017-03-24] MEDS: QUINAPRIL HCL 40 MG TABLET (FP) PO SCH (17:06)
[2017-03-24] MEDS: FERROUS SO4 325 MG TABLET (FP) PO SCH (17:06)
--- NOTE | 2017-03-24 17:19 | PN ---
Teaching Attending Note Name of Resident: Benny Garcia ATTENDING PHYSICIAN STATEMENT Time of evaluation: 10:45 AM I saw and evaluated the patient. I reviewed the resident's note and discussed the case with the resident. I agree with the resident's findings and plan as documented. SUBJECTIVE: Patient seen and examined. Breathing improved, overall feels better, no fevers/ chills or new concerns. does report non compliance with her home meds. OBJECTIVE: Vital Signs Period Temp Pulse Resp BP Sys/Muniz Pulse Ox Last 24 Hr 97.6 F-98.2 F 88-116 18-28 148-198/86-107 85-100 Intake & Output 03/21/17 03/22/17 03/23/17 03/24/17 23:59 23:59 23:59 23:59 Intake Total 250 Balance 250 Weight 245 lb General: sitting in bed on mask in no acute distress, able to converse in full sentences, no use of acessory muscles of respiration CVs:S1S2 regular Chest: few left sided expiratory wheezing, positive air entry, no rales appreciated, though limited assessment given body habitus Abdomen: soft, obese, NT Extremities: no edema Home Medication List Medication Instructions Recorded Confirmed Type Albuterol 0.083% Nebulizer Kaitlyn 1 amp NEB Q4H PRN 03/24/17 03/24/17 History [Ventolin 0.083% Nebulizer Soln -] Budesonide/Formeterol Fumarate 1 puff IH BID 03/24/17 03/24/17 History [SYMBICORT 160/4.5mcg -] Calcium Carbonate 650 mg PO BID 03/24/17 03/24/17 History Diltiazem HCl [Cartia Xt] 300 mg PO DAILY 03/24/17 03/24/17 History Docusate Sodium [Colace -] 100 mg PO DAILY 03/24/17 03/24/17 History Ferrous Sulfate [Feosol] 325 mg PO BID 03/24/17 03/24/17 History Hydrochlorothiazide [Hctz -] 25 mg PO DAILY 03/24/17 03/24/17 History Metformin HCl 500 mg PO BID 03/24/17 03/24/17 History Quinapril HCl [Accupril -] 40 mg PO DAILY 03/24/17 03/24/17 History Sennosides [Senna -] 1 tab PO HS 03/24/17 03/24/17 History Active Medications Generic Name Dose Route Start Last Admin Trade Name Freq PRN Reason Stop Dose Admin Albuterol Sulfate 1 amp 03/24/17 13:27 Ventolin 0.083% Nebulizer Soln - NEB Q1H PRN SHORT OF BREATH/WHEEZING Albuterol/Ipratropium 1 amp 03/24/17 00:00 03/24/17 11:10 Duoneb - NEB 1 amp QIDR ALICJA Administration Budesonide/Formoterol Fumarate 1 puff 03/23/17 22:00 03/24/17 11:48 Symbicort 160/4.5mcg - IH 1 mcg BID ALICJA Administration Calcium Carbonate 650 mg 03/24/17 10:00 03/24/17 10:33 Calcium Carbonate - PO 650 mg BID ALICJA Administration Diltiazem HCl 300 mg 03/24/17 10:00 03/24/17 11:48 Cardizem Cd - PO 300 mg DAILY ALICJA Administration Docusate Sodium 100 mg 03/24/17 14:29 Colace - PO DAILY PRN CONSTIPATION Ferrous Sulfate 325 mg 03/24/17 17:30 03/24/17 17:06 Feosol - PO 325 mg BIDWM ALICJA Administration Heparin Sodium (Porcine) 5,000 unit 03/23/17 22:00 03/24/17 14:49 Heparin - SQ 5,000 unit TID ALICJA Administration Hydrochlorothiazide 25 mg 03/24/17 14:45 03/24/17 17:06 Hctz - PO 25 mg DAILY ALICJA Administration Azithromycin 500 mg/ Dextrose 250 mls @ 250 mls/hr 03/24/17 10:00 03/24/17 11 :47 IVPB 250 mls/hr DAILY ALICJA Administration CEFTRIAXONE 1 G/50 ML PREMIX 50 mls @ 100 mls/hr 03/24/17 10:00 03/24/17 10: 36 Ceftriaxone 1 Gm-D5w Bag IVPB 100 mls/hr DAILY ALICJA Administration Insulin Aspart 1 vial 03/23/17 22:00 03/24/17 17:06 Novolog Vial Sliding Scale - SQ 2 units ACHS ALICJA Administration Protocol Methylprednisolone Sodium Succinate 60 mg 03/24/17 18:00 03/24/17 17:06 Solu-Medrol - IVPUSH 60 mg Q8H-IV ALICJA Administration Montelukast Sodium 10 mg 03/23/17 23:15 03/23/17 23:34 Singulair - PO 10 mg HS ALICJA Administration Quinapril HCl 40 mg 03/24/17 15:00 03/24/17 17:06 Accupril - PO 40 mg DAILY ALICJA Administration Senna 1 tab 03/24/17 14:29 Senna - PO HS PRN CONSTIPATION Laboratory Results - last 24 hr 03/23/17 03/24/17 03/24/17 16:20 06:01 08:00 WBC 10.2 H D RBC 3.67 Hgb 9.7 L Hct 30.4 L MCV 82.9 MCH 26.4 MCHC 31.8 L RDW 16.4 H Plt Count 210 MPV 8.9 Neutrophils % 94.3 H Lymphocytes % 5.1 L D Monocytes % 0.5 L D Eosinophils % 0.0 D Basophils % 0.1 Sodium 135 L Potassium 4.0 Chloride 93 L Carbon Dioxide 36 H Anion Gap 6 L BUN 14 D Creatinine 0.9 D Creat Clearance w eGFR > 60 POC Glucometer 164 Random Glucose 134 H Hemoglobin A1c % Calcium 6.7 L* Phosphorus Magnesium Total Bilirubin 0.6 D AST 46 H D ALT 60 Alkaline Phosphatase 138 H D Total Protein 7.7 Albumin 3.5 03/24/17 03/24/17 03/24/17 08:00 08:00 11:22 WBC RBC Hgb Hct MCV MCH MCHC RDW Plt Count MPV Neutrophils % Lymphocytes % Monocytes % Eosinophils % Basophils % Sodium 138 Potassium 4.5 Chloride 96 L Carbon Dioxide 36 H Anion Gap 6 L BUN 17 D Creatinine 0.9 Creat Clearance w eGFR POC Glucometer 187 Random Glucose 142 H Hemoglobin A1c % 6.5 H D Calcium 7.2 L Phosphorus 5.5 H Magnesium 2.7 H D Total Bilirubin AST ALT Alkaline Phosphatase Total Protein Albumin 03/24/17 16:40 WBC RBC Hgb Hct MCV MCH MCHC RDW Plt Count MPV Neutrophils % Lymphocytes % Monocytes % Eosinophils % Basophils % Sodium Potassium Chloride Carbon Dioxide Anion Gap BUN Creatinine Creat Clearance w eGFR POC Glucometer 213 Random Glucose Hemoglobin A1c % Calcium Phosphorus Magnesium Total Bilirubin AST ALT Alkaline Phosphatase Total Protein Albumin Microbiology 03/24/17 09:00 Nasopharyngeal Swab Respiratory Virus (PCR) - Preliminary 03/24/17 01:46 Nasopharyngeal Swab Influenza Types A,B Antigen (PARAMJIT) - Final 03/24/17 01:46 Nasopharyngeal Swab - Final CXR - possible right lower lobe infiltrate ASSESSMENT AND PLAN: 42 yo F with pmh of severe asthma, 3 admissions in past 5 yrs, no intubations, 2014 admission for CAP, PE and asthma exacerbation, HTN, and morbid obesity admitted with acute hypoxic respiratory failure, acute asthma exacerbation and possible RLL infiltrate. -Acute hypoxic respiratory failure -Acute asthma exacerbation -Suspected RLL CAP -Morbid obesity -JENNIFER (reports sleep study with Dr. Briseno outpatient, not using CPAP) -HTN -NIDDM -Hypocalcemia Plan: Clinically improved. Very slow steroid taper. nebs, symbicort. Pulmonary input noted. PFTs from 01/2017 noted, severe obstructive/restrictive disease. Non compliance with outpatient meds. Monitor off bipap, check ABG in half hour, resume bipap vs nasal cannula based on clinical status and ABG. Emperic Ceftriaxone/azithromycin day 2. Blood/sputum cultures. Influenza PCR neg. Check RVP. Start Calcium suppl. Resume home cardizem/quinapril/HCTZ. ISS, hold metformin. Patient counseled on medication compliance DVTPPx dispo pending improvement in respiratory status.
[2017-03-24 17:35] LABS: ARTERIAL BLD GAS O2 SATURATION 84.7 % (90-98.9); ARTERIAL BLOOD GAS BASE EXCESS 9.2 meq/l (-2-2); ARTERIAL BLOOD GAS HCO3 36.3 meq/L (22-26); ARTERIAL BLOOD GAS PO2 53.5 mmHg (80-100); ARTERIAL BLOOD GAS pH 7.36 (7.35-7.45)
[2017-03-24 17:36] LABS: PT. ON O2? YES; TYPE OF O2 NASAL
[2017-03-24 17:37] LABS: LPM/O2% 6L
[2017-03-24] MEDS ORDERED: PT OWN MED DRAWER 7, Y5N ONE (20:57)
[2017-03-24] MEDS: MONTELUKAST NA 10 MG TABLET PO SCH (21:23)
[2017-03-25] MEDS: ALBUTEROL SO4 2.5/IPRATROPIUM 0.5 INH SOL 3 ML VIAL.NEB. NEB SCH ×5 (00:15→23:14)
[2017-03-25] MEDS: methylPREDNISolone NA SUCC 40 MG/1 ML VIAL IVPUSH SCH ×3 (01:31→18:44)
[2017-03-25] MEDS: HEPARIN NA (PORCINE) 5,000 UNITS/ML 1ML VIAL SQ SCH ×3 (06:02→21:29)
[2017-03-25] MEDS: INSULIN SLIDING SCALE (NOVOLOG) 1 VIAL SQ SCH ×4 (06:02→21:29)
[2017-03-25 08:28] LABS: MCH 25.7 pg (25.7-33.7); MCHC 31.1 g/dl (32.0-36.0); MEAN CELL VOLUME 82.8 fl (80-96); MEAN PLT VOLUME 9.1 fl (7.5-11.1); NEUTROPHILS 94.8 % (42.8-82.8); PLATELET COUNT 258 K/MM3 (134-434); RDW 17.1 % (11.6-15.6); WHITE BLOOD COUNT 16.5 K/mm3 (4.0-10.0)
[2017-03-25] MEDS: FERROUS SO4 325 MG TABLET (FP) PO SCH ×2 (08:28→18:44)
[2017-03-25] MEDS: CEFTRIAXONE 1 G/50 ML PREMIX 50 ML IVPB SCH (09:37)
[2017-03-25] MEDS: HYDROCHLOROTHIAZIDE 25 MG TABLET (FP) PO SCH (09:38)
[2017-03-25] MEDS: CALCIUM CARBONATE 650 MG TABLET PO SCH ×2 (09:38→21:29)
[2017-03-25] MEDS ORDERED: PT OWN MED DRAWER 7, Y5N ONE (09:48)
[2017-03-25] MEDS: QUINAPRIL HCL 40 MG TABLET (FP) PO SCH (09:49)
[2017-03-25] MEDS: BUDESONIDE/FORMETEROL FUMARATE 160/4.5 mcg INHALER IH SCH ×2 (10:07→21:35)
[2017-03-25] MEDS: AZITHROMYCIN IVPB 500 MG in DEXTROSE 5%-WATER - 250 ML IVPB SCH (10:08)
--- NOTE | 2017-03-25 11:32 | PN ---
Teaching Attending Note Name of Resident: Benny Garcia ATTENDING PHYSICIAN STATEMENT Time of evaluation: 8:55 AM I saw and evaluated the patient. I reviewed the resident's note and discussed the case with the resident. I agree with the resident's findings and plan as documented. SUBJECTIVE: Patient seen and examined, on Bipap, breathing improving, no new complaints. OBJECTIVE: Vital Signs Period Temp Pulse Resp BP Sys/Muniz Pulse Ox Last 24 Hr 97.3 F-98.2 F 104-116 20-22 122-151/73-97 85-97 Intake & Output 03/22/17 03/23/17 03/24/17 03/25/17 23:59 23:59 23:59 23:59 Intake Total 650 200 Balance 650 200 Weight 245 lb General: sitting in chair in no acute distress, currently finishing overnight Bipap, no use of acessory muscles of respiration, able to talk in full sentences CVS:S1s2 regular chest: improved air entry, no wheezing today Abdomen: soft, obese, NT extremities: no edema Home Medication List Medication Instructions Recorded Confirmed Type Albuterol 0.083% Nebulizer Kaitlyn 1 amp NEB Q4H PRN 03/24/17 03/24/17 History [Ventolin 0.083% Nebulizer Soln -] Budesonide/Formeterol Fumarate 1 puff IH BID 03/24/17 03/24/17 History [SYMBICORT 160/4.5mcg -] Calcium Carbonate 650 mg PO BID 03/24/17 03/24/17 History Diltiazem HCl [Cartia Xt] 300 mg PO DAILY 03/24/17 03/24/17 History Docusate Sodium [Colace -] 100 mg PO DAILY 03/24/17 03/24/17 History Ferrous Sulfate [Feosol] 325 mg PO BID 03/24/17 03/24/17 History Hydrochlorothiazide [Hctz -] 25 mg PO DAILY 03/24/17 03/24/17 History Metformin HCl 500 mg PO BID 03/24/17 03/24/17 History Quinapril HCl [Accupril -] 40 mg PO DAILY 03/24/17 03/24/17 History Sennosides [Senna -] 1 tab PO HS 03/24/17 03/24/17 History Active Medications Generic Name Dose Route Start Last Admin Trade Name Freq PRN Reason Stop Dose Admin Albuterol Sulfate 1 amp 03/24/17 13:27 Ventolin 0.083% Nebulizer Soln - NEB Q1H PRN SHORT OF BREATH/WHEEZING Albuterol/Ipratropium 1 amp 03/24/17 00:00 03/25/17 06:00 Duoneb - NEB 1 amp QIDR ALICJA Administration Budesonide/Formoterol Fumarate 1 puff 03/23/17 22:00 03/25/17 10:07 Symbicort 160/4.5mcg - IH 1 mcg BID ALICJA Administration Calcium Carbonate 650 mg 03/24/17 10:00 03/25/17 09:38 Calcium Carbonate - PO 650 mg BID ALICJA Administration Diltiazem HCl 300 mg 03/24/17 10:00 03/25/17 09:51 Cardizem Cd - PO 300 mg DAILY ALICJA Administration Docusate Sodium 100 mg 03/24/17 14:29 Colace - PO DAILY PRN CONSTIPATION Ferrous Sulfate 325 mg 03/24/17 17:30 03/25/17 08:28 Feosol - PO 325 mg BIDWM ALICJA Administration Heparin Sodium (Porcine) 5,000 unit 03/23/17 22:00 03/25/17 06:02 Heparin - SQ 5,000 unit TID ALICJA Administration Hydrochlorothiazide 25 mg 03/24/17 14:45 03/25/17 09:38 Hctz - PO 25 mg DAILY ALICJA Administration Azithromycin 500 mg/ Dextrose 250 mls @ 250 mls/hr 03/24/17 10:00 03/25/17 10 :08 IVPB 250 mls/hr DAILY ALICJA Administration CEFTRIAXONE 1 G/50 ML PREMIX 50 mls @ 100 mls/hr 03/24/17 10:00 03/25/17 09: 37 Ceftriaxone 1 Gm-D5w Bag IVPB 100 mls/hr DAILY ALICJA Administration Insulin Aspart 1 vial 03/25/17 07:47 Novolog Vial Sliding Scale - SQ ACHS [facility] Protocol Insulin Detemir 5 units 03/25/17 22:00 Levemir Vial SQ HS ALICJA Methylprednisolone Sodium Succinate 60 mg 03/24/17 18:00 03/25/17 09:37 Solu-Medrol - IVPUSH 60 mg Q8H-IV ALICJA Administration Montelukast Sodium 10 mg 03/23/17 23:15 03/24/17 21:23 Singulair - PO 10 mg HS ALICJA Administration Quinapril HCl 40 mg 03/24/17 15:00 03/25/17 09:49 Accupril - PO 40 mg DAILY ALICJA Administration Senna 1 tab 03/24/17 14:29 Senna - PO HS PRN CONSTIPATION Laboratory Results - last 24 hr 03/24/17 03/24/17 03/24/17 11:22 16:40 17:20 WBC RBC Hgb Hct MCV MCH MCHC RDW Plt Count MPV Neutrophils % Lymphocytes % Monocytes % Eosinophils % Basophils % Anticoagulation Therapy Y Puncture Site Y ABG pH 7.36 ABG pCO2 at Pt Temp 66.4 H* ABG pO2 at Pt Temp 53.5 L D ABG HCO3 36.3 H ABG O2 Sat (Measured) 84.7 L ABG O2 Content 12.9 L ABG Base Excess 9.2 H Lukas Test Y O2 Delivery Device Nasal Oxygen Flow Rate 6l Vent Mode Y Vent Rate Y Mechanical Rate Y Pressure Support Vent Y POC Glucometer 187 213 03/24/17 03/25/17 03/25/17 21:15 06:01 07:30 WBC 16.5 H D RBC 3.82 Hgb 9.8 L Hct 31.7 L MCV 82.8 MCH 25.7 MCHC 31.1 L RDW 17.1 H Plt Count 258 D MPV 9.1 Neutrophils % 94.8 H Lymphocytes % 3.5 L D Monocytes % 1.7 L D Eosinophils % 0.0 Basophils % 0.0 Anticoagulation Therapy Puncture Site ABG pH ABG pCO2 at Pt Temp ABG pO2 at Pt Temp ABG HCO3 ABG O2 Sat (Measured) ABG O2 Content ABG Base Excess Lukas Test O2 Delivery Device Oxygen Flow Rate Vent Mode Vent Rate Mechanical Rate Pressure Support Vent POC Glucometer 173 190 Microbiology 03/24/17 09:00 Nasopharyngeal Swab Respiratory Virus (PCR) - Preliminary 03/24/17 01:46 Nasopharyngeal Swab Influenza Types A,B Antigen (PARAMJIT) - Final 03/24/17 01:46 Nasopharyngeal Swab - Final ASSESSMENT AND PLAN: 42 yo F with pmh of severe asthma, 3 admissions in past 5 yrs, no intubations, 2015 admission for CAP, PE and asthma exacerbation, HTN, and morbid obesity admitted with acute hypoxic respiratory failure, acute asthma exacerbation and possible RLL infiltrate. -Acute hypoxic respiratory failure -Acute asthma exacerbation -Suspected RLL CAP -Leucocytosis likey steroid induced margination -Morbid obesity -JENNIFER (reports sleep study with Dr. Briseno outpatient, not using CPAP) -HTN -NIDDM -Hypocalcemia Plan: Clinically improved. Very slow steroid taper. nebs, symbicort. Pulmonary input noted. PFTs from 01/2017 noted, severe obstructive/restrictive disease. Non compliance with outpatient meds. Continue with nightly bipap. Daytime if symptomatic or hypoxic. Taper oxygen as tolerated Emperic Ceftriaxone/azithromycin day 3. Presentation and imaging not suggestive of PNA. Will d/c ceftriaxone, change azithromycin to PO and monitor closely. Leucocytosis likely from steroid induced margination as already improved, trend CBC for now Influenza PCR neg. Follow up RVP. Continue Calcium suppl. Continue cardizem/quinapril/HCTZ. ISS, hold metformin, add levemir 5 units hs while on steroids, transition to metformin on d.c. Patient counseled on medication compliance DVTPPx dispo pending improvement in respiratory status.
--- NOTE | 2017-03-25 12:03 | PN ---
Physical Exam: SUBJECTIVE: Patient seen and examined. States she feels much better. Has been ambulating to the bathroom and is not feeling short of breath (improvement for her). OBJECTIVE: Vital Signs Period Temp Pulse Resp BP Sys/Muniz Pulse Ox Last 24 Hr 97.3 F-98.2 F 104-116 20-22 122-151/73-97 85-95 GEN: AAOx3, NAD, Obese, not in respiratory distress HEENT: PERRLA, EOMi CV: S1, S2, RRR LUNG: Reduced sounds due to habitus, but better air movement than yesterday ABD: Soft, obese, NT, ND MSK: No pitting edema Active Medications Generic Name Dose Route Start Last Admin Trade Name Freq PRN Reason Stop Dose Admin Albuterol Sulfate 1 amp 03/24/17 13:27 Ventolin 0.083% Nebulizer Soln - NEB Q1H PRN SHORT OF BREATH/WHEEZING Albuterol/Ipratropium 1 amp 03/24/17 00:00 03/25/17 06:00 Duoneb - NEB 1 amp QIDR ALICJA Administration Azithromycin 500 mg 03/26/17 10:00 Azithromycin PO 03/28/17 10:01 DAILY ALICJA Budesonide/Formoterol Fumarate 1 puff 03/23/17 22:00 03/25/17 10:07 Symbicort 160/4.5mcg - IH 1 mcg BID ALICJA Administration Calcium Carbonate 650 mg 03/24/17 10:00 03/25/17 09:38 Calcium Carbonate - PO 650 mg BID ALICJA Administration Diltiazem HCl 300 mg 03/24/17 10:00 03/25/17 09:51 Cardizem Cd - PO 300 mg DAILY ALICJA Administration Docusate Sodium 100 mg 03/24/17 14:29 Colace - PO DAILY PRN CONSTIPATION Ferrous Sulfate 325 mg 03/24/17 17:30 03/25/17 08:28 Feosol - PO 325 mg BIDWM ALICJA Administration Heparin Sodium (Porcine) 5,000 unit 03/23/17 22:00 03/25/17 06:02 Heparin - SQ 5,000 unit TID ALICJA Administration Hydrochlorothiazide 25 mg 03/24/17 14:45 03/25/17 09:38 Hctz - PO 25 mg DAILY ALICJA Administration Insulin Aspart 1 vial 03/25/17 07:47 Novolog Vial Sliding Scale - SQ ACHS ALICJA Protocol Insulin Detemir 5 units 03/25/17 22:00 Levemir Vial SQ HS ALICJA Methylprednisolone Sodium Succinate 40 mg 03/25/17 11:31 Solu-Medrol - IVPUSH Q8H-IV ALICJA Montelukast Sodium 10 mg 03/23/17 23:15 03/24/17 21:23 Singulair - PO 10 mg HS ALICJA Administration Quinapril HCl 40 mg 03/24/17 15:00 03/25/17 09:49 Accupril - PO 40 mg DAILY ALICJA Administration Senna 1 tab 03/24/17 14:29 Senna - PO HS PRN CONSTIPATION ASSESSMENT/PLAN: 42 yo F with pmh of severe asthma, 2 admissions in past 5 yrs, no intubations, 2014 admission for CAP, PE and asthma exacerbation, HTN, DM, and morbid obesity admitted for acute hypoxic respiratory failure. # Acute Hypoxic Respiratory Failure - 2/2 asthma exacerbation - Pt continues to improve. Titrate down IV Medrol to 40 Q8. ABG shows chronic met acidosis, similar to previous ABGs. Nebs Standing + PRN. Symbicort BID. Singulair 10 HS - Superimposed CAP is less likely, if continues to be afebrile, will d/c antibiotics. Currently on Azithromycin 500 daily + Rocephin 1 daily - Patient comfortable on O2 6L NC. Keep sats 90s. BiPAP at night and PRN # JENNIFER - Diagnosed with sleep study. Continue nightly BiPAP # HTN Urgency - Resolved. Patient was discharged on 3 home meds last hospitalization, but did not continue them at home. Will continue Accupril 40 daily, HCTZ 25 daily, and Cardizem 300 daily # NIDDM - A1C 6.5. Hold home Metformin, Continue BGM + ISS ACHS + add Levemir 5 as patient is on steroids # Hypocalcemia - Continue home calcium supplements # FEN - No IVF, elec wnl, sodium/diabetic diet # PPX - HSQ TID, No GI, PT ordered # Dispo - Continue medrol taper. Doing well, hopeful d/c Monday/ d/w Dr Shayne Garcia MD - PGY1 Resident Internal Medicine Visit type - Emergency Visit Emergency Visit: No - New Patient This patient is new to me today: No - Critical Care Critical Care patient: No - Discharge Referral Referred to [facility] No
--- NOTE | 2017-03-25 14:33 | PN ---
Progress Note (short form) - Note Progress Note: PULMONARY States breathing is improving. +nonproductive cough, less wheezing. Last Vital Signs Temp Pulse Resp BP Pulse Ox 98.2 F 103 H 20 116/68 92 L 03/25/17 09:00 03/25/17 09:00 03/25/17 09:00 03/25/17 09:00 03/25/17 00:10 Gen: NAD at rest Heart: tachycardic, regular Lung: distant breath sounds, scattered rhonchi Abd: soft, obese Ext: no edema CBC, BMP 03/25/17 07:30 03/24/17 08:00 Active Medications Albuterol Sulfate (Ventolin 0.083% Nebulizer Soln -) 1 amp NEB Q1H PRN PRN Reason: SHORT OF BREATH/WHEEZING Albuterol/Ipratropium (Duoneb -) 1 amp NEB QIDR [facility] Last Admin: 03/25/17 12:51 Dose: 1 amp Azithromycin (Azithromycin) 500 mg PO DAILY [facility] Stop: 03/28/17 10:01 Budesonide/Formoterol Fumarate (Symbicort 160/4.5mcg -) 1 puff IH BID [facility] Last Admin: 03/25/17 10:07 Dose: 1 mcg Calcium Carbonate (Calcium Carbonate -) 650 mg PO BID [facility] Last Admin: 03/25/17 09:38 Dose: 650 mg Diltiazem HCl (Cardizem Cd -) 300 mg PO DAILY [facility] Last Admin: 03/25/17 09:51 Dose: 300 mg Docusate Sodium (Colace -) 100 mg PO DAILY PRN PRN Reason: CONSTIPATION Ferrous Sulfate (Feosol -) 325 mg PO BIDWM [facility] Last Admin: 03/25/17 08:28 Dose: 325 mg Heparin Sodium (Porcine) (Heparin -) 5,000 unit SQ TID [facility] Last Admin: 03/25/17 06:02 Dose: 5,000 unit Hydrochlorothiazide (Hctz -) 25 mg PO DAILY [facility] Last Admin: 03/25/17 09:38 Dose: 25 mg Insulin Aspart (Novolog Vial Sliding Scale -) 1 vial SQ ACHS [facility] PRN Reason: Protocol Last Admin: 03/25/17 12:13 Dose: 4 units Insulin Detemir (Levemir Vial) 5 units SQ HS [facility] Methylprednisolone Sodium Succinate (Solu-Medrol -) 40 mg IVPUSH Q8H-IV [facility]IC[facility] Montelukast Sodium (Singulair -) 10 mg PO HS [facility] Last Admin: 03/24/17 21:23 Dose: 10 mg Quinapril HCl (Accupril -) 40 mg PO DAILY [facility] Last Admin: 03/25/17 09:49 Dose: 40 mg Senna (Senna -) 1 tab PO HS PRN PRN Reason: CONSTIPATION A/P Acute Asthma Exacerbation Chronic Hypercapneic Respiratory Failure Acute Bronchitis Morbid Obesity - agree with medrol taper - inhaled bronchodilators standing and PRN - O2 to keep SpO2 >90% - azithromycin - singulair - monitor peak flow - DVT prophylaxis
[2017-03-25 17:31] LABS: ALBUMIN 3.4 g/dl (3.4-5.0); ALK PHOS 117 U/L (45-117); ANION GAP 6 (8-16); BILIRUBIN,TOTAL 0.3 mg/dL (0.2-1.0); CO2 37 mmol/L (21-32); GLUCOSE,RANDOM 192 mg/dL (74-106); SGOT/AST 18 U/L (15-37); SGPT/ALT 48 U/L (12-78); TOT PROT 7.3 g/dl (6.4-8.2)
[2017-03-25] MEDS ORDERED: INSULIN (NOVOLOG) ASPART 100 UNITS/ML 10ML VIAL ONE (21:09)
[2017-03-25] MEDS: MONTELUKAST NA 10 MG TABLET PO SCH (21:29)
[2017-03-25] MEDS: INSULIN DETEMIR 100 UNITS/ML MDV SQ SCH (21:29)
[2017-03-26] MEDS: methylPREDNISolone NA SUCC 40 MG/1 ML VIAL IVPUSH SCH ×3 (03:13→22:35)
[2017-03-26] MEDS: HEPARIN NA (PORCINE) 5,000 UNITS/ML 1ML VIAL SQ SCH ×3 (06:28→22:35)
[2017-03-26] MEDS: INSULIN SLIDING SCALE (NOVOLOG) 1 VIAL SQ SCH ×4 (06:28→23:18)
[2017-03-26] MEDS: ALBUTEROL SO4 2.5/IPRATROPIUM 0.5 INH SOL 3 ML VIAL.NEB. NEB SCH ×3 (06:42→18:14)
[2017-03-26 08:13] LABS: BASOPHIL 0.1 % (0-2.0); MCH 25.7 pg (25.7-33.7); MCHC 31.2 g/dl (32.0-36.0); MEAN CELL VOLUME 82.4 fl (80-96); MEAN PLT VOLUME 9.2 fl (7.5-11.1); NEUTROPHILS 93.3 % (42.8-82.8); PLATELET COUNT 241 K/MM3 (134-434); RDW 16.9 % (11.6-15.6); WHITE BLOOD COUNT 12.9 K/mm3 (4.0-10.0)
[2017-03-26] MEDS: FERROUS SO4 325 MG TABLET (FP) PO SCH ×2 (08:54→16:55)
[2017-03-26 09:03] LABS: ANION GAP 6 (8-16); CALCIUM 7.1 mg/dL (8.5-10.1); CO2 39 mmol/L (21-32); GLUCOSE,RANDOM 163 mg/dL (74-106)
--- NOTE | 2017-03-26 09:05 | PN ---
Teaching Attending Note Name of Resident: . Time of evaluation: 8:10 AM SUBJECTIVE: Patient seen and examined. breathing markedly improved, no new complaints. OBJECTIVE: Vital Signs Period Temp Pulse Resp BP Sys/Muniz Pulse Ox Last 24 Hr 97.7 F-98.5 F 91-109 18-22 123-160/78-113 95-98 Intake & Output 03/23/17 03/24/17 03/25/17 03/26/17 23:59 23:59 23:59 23:59 Intake Total 650 1050 Balance 650 1050 Weight 245 lb General: sitting in chair in no acute distress CVS:S1S2 regular Chest: Distant breath sounds but improved air entry, no wheezing today Abdomen: soft, obese, NT Extremities: no edema Active Medications Albuterol Sulfate (Ventolin 0.083% Nebulizer Soln -) 1 amp NEB Q1H PRN PRN Reason: SHORT OF BREATH/WHEEZING Albuterol/Ipratropium (Duoneb -) 1 amp NEB QIDR [facility] Last Admin: 03/26/17 06:42 Dose: 1 amp Azithromycin (Azithromycin) 500 mg PO DAILY [facility] Stop: 03/28/17 10:01 Last Admin: 03/26/17 09:50 Dose: 500 mg Budesonide/Formoterol Fumarate (Symbicort 160/4.5mcg -) 1 puff IH BID [facility] Last Admin: 03/26/17 09:49 Dose: 1 mcg Calcium Carbonate (Calcium Carbonate -) 650 mg PO BID [facility] Last Admin: 03/26/17 09:49 Dose: 650 mg Diltiazem HCl (Cardizem Cd -) 300 mg PO DAILY [facility] Last Admin: 03/26/17 09:51 Dose: 300 mg Docusate Sodium (Colace -) 100 mg PO DAILY PRN PRN Reason: CONSTIPATION Ferrous Sulfate (Feosol -) 325 mg PO BIDWM [facility] Last Admin: 03/26/17 08:54 Dose: 325 mg Heparin Sodium (Porcine) (Heparin -) 5,000 unit SQ TID [facility] Last Admin: 03/26/17 06:28 Dose: 5,000 unit Hydrochlorothiazide (Hctz -) 25 mg PO DAILY [facility] Last Admin: 03/26/17 09:59 Dose: 25 mg Insulin Aspart (Novolog Vial Sliding Scale -) 1 vial SQ ACHS [facility] PRN Reason: Protocol Last Admin: 03/26/17 06:28 Dose: 2 units Insulin Detemir (Levemir Vial) 5 units SQ HS [facility] Last Admin: 03/25/17 21:29 Dose: 5 units Methylprednisolone Sodium Succinate (Solu-Medrol -) 40 mg IVPUSH Q12H [facility] Last Admin: 03/26/17 09:59 Dose: 40 mg Montelukast Sodium (Singulair -) 10 mg PO HS [facility]IC[facility] Last Admin: 03/25/17 21:29 Dose: 10 mg Quinapril HCl (Accupril -) 40 mg PO DAILY [facility] Last Admin: 03/26/17 09:50 Dose: 40 mg Senna (Senna -) 1 tab PO HS PRN PRN Reason: CONSTIPATION Laboratory Results - last 24 hr 03/25/17 03/25/17 03/25/17 11:26 12:11 18:36 WBC RBC Hgb Hct MCV MCH MCHC RDW Plt Count MPV Neutrophils % Lymphocytes % Monocytes % Eosinophils % Basophils % Sodium 141 Potassium 3.8 Chloride 98 Carbon Dioxide 37 H Anion Gap 6 L BUN 29 H D Creatinine 1.0 Creat Clearance w eGFR > 60 POC Glucometer 210 219 Random Glucose 192 H D Calcium 7.0 L Total Bilirubin 0.3 D AST 18 D ALT 48 Alkaline Phosphatase 117 Total Protein 7.3 Albumin 3.4 03/25/17 03/26/17 03/26/17 21:27 06:27 07:00 WBC 12.9 H RBC 3.90 Hgb 10.0 L Hct 32.1 L MCV 82.4 MCH 25.7 MCHC 31.2 L RDW 16.9 H Plt Count 241 MPV 9.2 Neutrophils % 93.3 H Lymphocytes % 4.6 L D Monocytes % 2.0 L Eosinophils % 0.0 Basophils % 0.1 D Sodium Potassium Chloride Carbon Dioxide Anion Gap BUN Creatinine Creat Clearance w eGFR POC Glucometer 164 180 Random Glucose Calcium Total Bilirubin AST ALT Alkaline Phosphatase Total Protein Albumin 03/26/17 07:00 WBC RBC Hgb Hct MCV MCH MCHC RDW Plt Count MPV Neutrophils % Lymphocytes % Monocytes % Eosinophils % Basophils % Sodium 139 Potassium 3.4 L Chloride 94 L Carbon Dioxide 39 H Anion Gap 6 L BUN 34 H Creatinine 1.0 Creat Clearance w eGFR POC Glucometer Random Glucose 163 H Calcium 7.1 L Total Bilirubin AST ALT Alkaline Phosphatase Total Protein Albumin Microbiology 03/24/17 09:00 Nasopharyngeal Swab Respiratory Virus (PCR) - Preliminary 03/24/17 01:46 Nasopharyngeal Swab Influenza Types A,B Antigen (PARAMJIT) - Final 03/24/17 01:46 Nasopharyngeal Swab - Final ASSESSMENT AND PLAN: 42 yo F with pmh of severe asthma, 3 admissions in past 5 yrs, no intubations, 2014 admission for CAP, PE and asthma exacerbation, HTN, and morbid obesity admitted with acute hypoxic respiratory failure, acute asthma exacerbation and possible RLL infiltrate. -Acute hypoxic respiratory failure -Acute asthma exacerbation -Suspected RLL CAP -Leucocytosis likey steroid induced margination -Morbid obesity -JENNIFER (reports sleep study with Dr. Briseno outpatient, not using CPAP) -HTN -NIDDM -Hypocalcemia Plan: Clinically improved. Very slow steroid taper, change solumedrol to 40 mg IV q12h. nebs, symbicort. Pulmonary input noted. PFTs from 01/2017 noted, severe obstructive/restrictive disease. Non compliance with outpatient meds. Continue with nightly bipap. Daytime if symptomatic or hypoxic. Taper oxygen as tolerated Ceftriaxone d/ford, Azithromycin day 4/5, WBC improved, afebrile. Presentation and imaging not suggestive of PNA. Influenza PCR neg. Follow up RVP. Continue Calcium suppl. Continue cardizem/quinapril/HCTZ. ISS, hold metformin, levemir 5 units hs while on steroids, transition to metformin on d.c. Patient counseled on medication compliance DVTPPx dispo check pre and post ambulatory oxygen needs (currently on 3-4L at home). Anticipate d/c in 24 hours on oral steroids if continues to improve. Plan discussed with patient in detail, all questions answered.
[2017-03-26] MEDS ORDERED: PT OWN MED DRAWER 7, Y5N ONE ×2 (09:36→23:22)
[2017-03-26] MEDS: CALCIUM CARBONATE 650 MG TABLET PO SCH ×2 (09:49→22:34)
[2017-03-26] MEDS: BUDESONIDE/FORMETEROL FUMARATE 160/4.5 mcg INHALER IH SCH ×2 (09:49→23:19)
[2017-03-26] MEDS: AZITHROMYCIN 500 MG TABLET PO SCH (09:50)
[2017-03-26] MEDS: QUINAPRIL HCL 40 MG TABLET (FP) PO SCH (09:50)
[2017-03-26] MEDS: HYDROCHLOROTHIAZIDE 25 MG TABLET (FP) PO SCH (09:59)
--- NOTE | 2017-03-26 12:31 | PN ---
Progress Note (short form) - Note Progress Note: PULMONARY States breathing continues to slowly improve. +nonproductive cough, less wheezing. Last Vital Signs Temp Pulse Resp BP Pulse Ox 98.5 F 101 H 20 160/90 95 03/26/17 09:31 03/26/17 09:31 12 09:31 03/26/17 09:31 03/26/17 00:31 Gen: NAD at rest Heart: tachycardic, regular Lung: distant breath sounds, scattered rhonchi Abd: soft, obese Ext: no edema CBC, BMP 03/26/17 07:00 03/26/17 07:00 Active Medications Albuterol Sulfate (Ventolin 0.083% Nebulizer Soln -) 1 amp NEB Q1H PRN PRN Reason: SHORT OF BREATH/WHEEZING Albuterol/Ipratropium (Duoneb -) 1 amp NEB QIDR [facility] Last Admin: 03/26/17 06:42 Dose: 1 amp Azithromycin (Azithromycin) 500 mg PO DAILY [facility] Stop: 03/28/17 10:01 Last Admin: 03/26/17 09:50 Dose: 500 mg Budesonide/Formoterol Fumarate (Symbicort 160/4.5mcg -) 1 puff IH BID [facility] Last Admin: 03/26/17 09:49 Dose: 1 mcg Calcium Carbonate (Calcium Carbonate -) 650 mg PO BID [facility] Last Admin: 03/26/17 09:49 Dose: 650 mg Diltiazem HCl (Cardizem Cd -) 300 mg PO DAILY [facility] Last Admin: 03/26/17 09:51 Dose: 300 mg Docusate Sodium (Colace -) 100 mg PO DAILY PRN PRN Reason: CONSTIPATION Ferrous Sulfate (Feosol -) 325 mg PO BIDWM [facility] Last Admin: 03/26/17 08:54 Dose: 325 mg Heparin Sodium (Porcine) (Heparin -) 5,000 unit SQ TID [facility] Last Admin: 03/26/17 06:28 Dose: 5,000 unit Hydrochlorothiazide (Hctz -) 25 mg PO DAILY [facility] Last Admin: 03/26/17 09:59 Dose: 25 mg Insulin Aspart (Novolog Vial Sliding Scale -) 1 vial SQ ACHS [facility] PRN Reason: Protocol Last Admin: 03/26/17 06:28 Dose: 2 units Insulin Detemir (Levemir Vial) 5 units SQ HS [facility] Last Admin: 03/25/17 21:29 Dose: 5 units Methylprednisolone Sodium Succinate (Solu-Medrol -) 40 mg IVPUSH Q12H [facility] Last Admin: 03/26/17 09:59 Dose: 40 mg Montelukast Sodium (Singulair -) 10 mg PO HS [facility] Last Admin: 03/25/17 21:29 Dose: 10 mg Quinapril HCl (Accupril -) 40 mg PO DAILY [facility] Last Admin: 03/26/17 09:50 Dose: 40 mg Senna (Senna -) 1 tab PO HS PRN PRN Reason: CONSTIPATION A/P Acute Asthma Exacerbation Chronic Hypercapneic Respiratory Failure Acute Bronchitis Morbid Obesity - agree with current medrol taper - inhaled bronchodilators standing and PRN - O2 to keep SpO2 >90% - azithromycin - singulair - monitor peak flow - DVT prophylaxis - if continues to improve, can consider changing steroids to PO in AM
[2017-03-26] MEDS ORDERED: INSULIN (NOVOLOG) ASPART 100 UNITS/ML 10ML VIAL ONE (16:36)
[2017-03-26] MEDS ORDERED: POTASSIUM CHLORIDE TABS 20 MEQ TABLET.ER (FP) PO ONE ×2 (18:12→22:15)
[2017-03-26] MEDS ORDERED: CALCIUM GLUCONATE 10% - 1,000 MG/10 ML VIAL IVPB ONE ×2 (18:12→21:30)
[2017-03-26] MEDS: MONTELUKAST NA 10 MG TABLET PO SCH (22:34)
[2017-03-26] MEDS: INSULIN DETEMIR 100 UNITS/ML MDV SQ SCH (22:35)
[2017-03-27] MEDS: ALBUTEROL SO4 2.5/IPRATROPIUM 0.5 INH SOL 3 ML VIAL.NEB. NEB SCH ×4 (00:22→18:16)
[2017-03-27] MEDS ORDERED: PT OWN MED DRAWER 7, Y5N ONE (06:42)
[2017-03-27] MEDS: HEPARIN NA (PORCINE) 5,000 UNITS/ML 1ML VIAL SQ SCH ×3 (06:43→21:27)
[2017-03-27] MEDS: INSULIN SLIDING SCALE (NOVOLOG) 1 VIAL SQ SCH ×4 (06:43→21:31)
--- NOTE | 2017-03-27 07:45 | PN ---
Physical Exam: SUBJECTIVE: Patient seen and examined. Doing well, states she feels much better , improved breathing w/ ambulation. OBJECTIVE: Vital Signs Period Temp Pulse Resp BP Sys/Muniz Pulse Ox Last 24 Hr 97.6 F-98.5 F 58-114 20-20 103-160/64-90 86-94 GEN: AAOx3, NAD, Obese, not in respiratory distress HEENT: PERRLA, EOMi CV: S1, S2, RRR LUNG: Expiratory wheezes ABD: Soft, obese, NT, ND MSK: No pitting edema Active Medications Generic Name Dose Route Start Last Admin Trade Name Freq PRN Reason Stop Dose Admin Albuterol Sulfate 1 amp 03/24/17 13:27 Ventolin 0.083% Nebulizer Soln - NEB Q1H PRN SHORT OF BREATH/WHEEZING Albuterol/Ipratropium 1 amp 03/24/17 00:00 03/27/17 06:44 Duoneb - NEB 1 amp QIDR ALICJA Administration Azithromycin 500 mg 03/26/17 10:00 03/26/17 09:50 Azithromycin PO 03/28/17 10:01 500 mg DAILY ALICJA Administration Budesonide/Formoterol Fumarate 1 puff 03/23/17 22:00 03/26/17 23:19 Symbicort 160/4.5mcg - IH 1 mcg BID ALICJA Administration Calcium Carbonate 650 mg 03/24/17 10:00 03/26/17 22:34 Calcium Carbonate - PO 650 mg BID ALICJA Administration Diltiazem HCl 300 mg 03/24/17 10:00 03/26/17 09:51 Cardizem Cd - PO 300 mg DAILY [facility]ICJA Administration Docusate Sodium 100 mg 03/24/17 14:29 Colace - PO DAILY PRN CONSTIPATION Ferrous Sulfate 325 mg 03/24/17 17:30 03/26/17 16:55 Feosol - PO 325 mg BIDWM ALICJA Administration Heparin Sodium (Porcine) 5,000 unit 03/23/17 22:00 03/27/17 06:43 Heparin - SQ 5,000 unit TID ALICJA Administration Hydrochlorothiazide 25 mg 03/24/17 14:45 03/26/17 09:59 Hctz - PO 25 mg DAILY [facility] Administration Insulin Aspart 1 vial 03/25/17 07:47 03/27/17 06:43 Novolog Vial Sliding Scale - SQ 2 units ACHS ALICJA Administration Protocol Insulin Detemir 5 units 03/25/17 22:00 03/26/17 22:35 Levemir Vial SQ 5 units HS ALICJA Administration Methylprednisolone Sodium Succinate 40 mg 03/26/17 09:15 03/26/17 22:35 Solu-Medrol - IVPUSH 40 mg Q12H ALICJA Administration Montelukast Sodium 10 mg 03/23/17 23:15 03/26/17 22:34 Singulair - PO 10 mg HS ALICJA Administration Quinapril HCl 40 mg 03/24/17 15:00 03/26/17 09:50 Accupril - PO 40 mg DAILY [facility] Administration Senna 1 tab 03/24/17 14:29 Senna - PO HS PRN CONSTIPATION ASSESSMENT/PLAN: 42 yo F with pmh of severe asthma, 2 admissions in past 5 yrs, no intubations, 2014 admission for CAP, PE and asthma exacerbation, HTN, DM, and morbid obesity admitted for acute hypoxic respiratory failure. # Acute Hypoxic Respiratory Failure - - Likely 2/2 asthma exacerbation. Still wheezes, but improved air intake. Titrate steroids down to 60 daily. Already got IV 40 Methylpred this AM, will give 20mg PO prednisone now, total 60mg PO. Continue Nebs Standing + PRN. Symbicort BID. Singulair 10 HS. BiPAP PRN + night - Still hypoxic with treatments, will get CTA to assess for chronic PEs and lung parenychyma. - Superimposed CAP is less likely, if continues to be afebrile, will d/c antibiotics. Currently on Azithromycin 500 daily + Rocephin 1 daily # JENNIFER - Diagnosed with sleep study. Continue nightly BiPAP # HTN Urgency - Resolved. Patient was discharged on 3 home meds last hospitalization, but did not continue them at home. Will continue Accupril 40 daily, HCTZ 25 daily, and Cardizem 300 daily # NIDDM - A1C 6.5. Hold home Metformin, Continue BGM + ISS ACHS + add Levemir 5 as patient is on steroids # Hypocalcemia - Continue home calcium supplements # FEN - No IVF, elec wnl, sodium/diabetic diet # PPX - HSQ TID, No GI, PT ordered # Dispo - Continue medrol taper, now PO. Doing well. Dr Riojas recommends trilogy machine. CM aware. Repeat ABG ordered, machine being ordered. d/w Dr Shayne Garcia MD - PGY1 Resident Internal Medicine Visit type - Emergency Visit Emergency Visit: No - New Patient This patient is new to me today: No - Critical Care Critical Care patient: No - Discharge Referral Referred to [facility] No
--- NOTE | 2017-03-27 07:53 | PN ---
Teaching Attending Note Name of Resident: Benny Garcia ATTENDING PHYSICIAN STATEMENT Time of evaluation: 9:45 AM I saw and evaluated the patient. I reviewed the resident's note and discussed the case with the resident. I agree with the resident's findings and plan as documented. SUBJECTIVE: Patient seen and examined. Breathing continues to improve, mildly short of breath after walking with PT, no other complaints. OBJECTIVE: Vital Signs Period Temp Pulse Resp BP Sys/Muniz Pulse Ox Last 24 Hr 97.6 F-98.5 F 58-114 20-20 103-160/64-90 86-94 Intake & Output 03/24/17 03/25/17 03/26/17 03/27/17 23:59 23:59 23:59 23:59 Intake Total 650 1050 1080 Balance 650 1050 1080 General: sitting in bed, mild tachypneia after working with PT, minimal use of acessory muscles of respiration Chest: GOod air entry bilaterally, no rales or wheezing CVS: S1S2 regular Abdomen: soft, obese, NT Extremities: no edema Home Medication List Medication Instructions Recorded Confirmed Type Albuterol 0.083% Nebulizer Kaitlyn 1 amp NEB Q4H PRN 03/24/17 03/24/17 History [Ventolin 0.083% Nebulizer Soln -] Budesonide/Formeterol Fumarate 1 puff IH BID 03/24/17 03/24/17 History [SYMBICORT 160/4.5mcg -] Calcium Carbonate 650 mg PO BID 03/24/17 03/24/17 History Diltiazem HCl [Cartia Xt] 300 mg PO DAILY 03/24/17 03/24/17 History Docusate Sodium [Colace -] 100 mg PO DAILY 03/24/17 03/24/17 History Ferrous Sulfate [Feosol] 325 mg PO BID 03/24/17 03/24/17 History Hydrochlorothiazide [Hctz -] 25 mg PO DAILY 03/24/17 03/24/17 History Metformin HCl 500 mg PO BID 03/24/17 03/24/17 History Quinapril HCl [Accupril -] 40 mg PO DAILY 03/24/17 03/24/17 History Sennosides [Senna -] 1 tab PO HS 03/24/17 03/24/17 History Active Medications Generic Name Dose Route Start Last Admin Trade Name Freq PRN Reason Stop Dose Admin Albuterol Sulfate 1 amp 03/24/17 13:27 Ventolin 0.083% Nebulizer Soln - NEB Q1H PRN SHORT OF BREATH/WHEEZING Albuterol/Ipratropium 1 amp 03/24/17 00:00 03/27/17 06:44 Duoneb - NEB 1 amp QIDR ALICJA Administration Azithromycin 500 mg 03/26/17 10:00 03/26/17 09:50 Azithromycin PO 03/28/17 10:01 500 mg DAILY ALICJA Administration Budesonide/Formoterol Fumarate 1 puff 03/23/17 22:00 03/26/17 23:19 Symbicort 160/4.5mcg - IH 1 mcg BID ALICJA Administration Calcium Carbonate 650 mg 03/24/17 10:00 03/26/17 22:34 Calcium Carbonate - PO 650 mg BID ALICJA Administration Diltiazem HCl 300 mg 03/24/17 10:00 03/26/17 09:51 Cardizem Cd - PO 300 mg DAILY ALICJA Administration Docusate Sodium 100 mg 03/24/17 14:29 Colace - PO DAILY PRN CONSTIPATION Ferrous Sulfate 325 mg 03/24/17 17:30 03/26/17 16:55 Feosol - PO 325 mg BIDWM ALICJA Administration Heparin Sodium (Porcine) 5,000 unit 03/23/17 22:00 03/27/17 06:43 Heparin - SQ 5,000 unit TID ALICJA Administration Hydrochlorothiazide 25 mg 03/24/17 14:45 03/26/17 09:59 Hctz - PO 25 mg DAILY ALICJA Administration Insulin Aspart 1 vial 03/25/17 07:47 03/27/17 06:43 Novolog Vial Sliding Scale - SQ 2 units ACHS ALICJA Administration Protocol Insulin Detemir 5 units 03/25/17 22:00 03/26/17 22:35 Levemir Vial SQ 5 units HS ALICJA Administration Methylprednisolone Sodium Succinate 40 mg 03/26/17 09:15 03/26/17 22:35 Solu-Medrol - IVPUSH 40 mg Q12H ALICJA Administration Montelukast Sodium 10 mg 03/23/17 23:15 03/26/17 22:34 Singulair - PO 10 mg HS ALICJA Administration Quinapril HCl 40 mg 03/24/17 15:00 03/26/17 09:50 Accupril - PO 40 mg DAILY ALICJA Administration Senna 1 tab 03/24/17 14:29 Senna - PO HS PRN CONSTIPATION Laboratory Results - last 24 hr 03/26/17 03/26/17 03/27/17 16:51 22:32 06:27 Puncture Site ABG pH ABG pCO2 at Pt Temp ABG pO2 at Pt Temp ABG HCO3 ABG O2 Sat (Measured) ABG O2 Content ABG Base Excess Lukas Test O2 Delivery Device Oxygen Flow Rate Sodium Potassium Chloride Carbon Dioxide Anion Gap BUN Creatinine Creat Clearance w eGFR POC Glucometer 198 183 165 Random Glucose Calcium Phosphorus Magnesium Total Bilirubin AST ALT Alkaline Phosphatase Total Protein Albumin 03/27/17 03/27/17 03/27/17 07:30 11:06 11:45 Puncture Site Right radial ABG pH 7.44 ABG pCO2 at Pt Temp 60.6 H* ABG pO2 at Pt Temp 50.9 L ABG HCO3 40.1 H* ABG O2 Sat (Measured) 83.6 L ABG O2 Content 11.5 L ABG Base Excess 14.0 H Lukas Test Positive O2 Delivery Device Room air Oxygen Flow Rate No Sodium 142 Potassium 3.7 Chloride 94 L Carbon Dioxide 39 H Anion Gap 9 BUN 36 H Creatinine 1.0 Creat Clearance w eGFR > 60 POC Glucometer 211 Random Glucose 168 H Calcium 7.5 L Phosphorus 5.7 H Magnesium 2.3 Total Bilirubin 0.5 D AST 24 D ALT 59 D Alkaline Phosphatase 97 Total Protein 7.3 Albumin 3.6 Microbiology 03/24/17 09:00 Nasopharyngeal Swab Respiratory Virus (PCR) - Preliminary 03/24/17 01:46 Nasopharyngeal Swab Influenza Types A,B Antigen (PARAMJIT) - Final 03/24/17 01:46 Nasopharyngeal Swab - Final ASSESSMENT AND PLAN: 42 yo F with pmh of severe asthma, 3 admissions in past 5 yrs, no intubations, 2014 admission for CAP, PE and asthma exacerbation, HTN, and morbid obesity admitted with acute hypoxic respiratory failure, acute asthma exacerbation and possible RLL infiltrate. -Acute hypoxic respiratory failure -Acute asthma exacerbation -Suspected RLL CAP -Leucocytosis likey steroid induced margination -Morbid obesity -JENNIFER (reports sleep study with Dr. Briseno outpatient, not using CPAP) -HTN -NIDDM -Hypocalcemia Plan: Clinically improved. Still with high oxygen requirements. Check CT PE to assess, for chronic PE, also will help evaluate lung parenchyma. Very slow steroid taper, Change to PO Prednisone. nebs, symbicort. Pulmonary input noted. PFTs from 01/2017 noted, severe obstructive/restrictive disease. Non compliance with outpatient meds. Continue with nightly bipap. Daytime if symptomatic or hypoxic. Taper oxygen as tolerated Ceftriaxone d/ford, Azithromycin day 5/5, WBC improved, afebrile. d/c antibiotics after today. Presentation and imaging not suggestive of PNA. Influenza PCR/RVP neg. Continue Calcium suppl. Continue cardizem/quinapril/HCTZ. ISS, hold metformin, levemir 5 units hs while on steroids, transition to metformin on d.c. Patient counseled on medication compliance DVTPPx dispo anticipate d/c in 24 hours on home oxygen if CT PE non concerning, continues to improve. Check ABG as may qualify for trilogy device on discharge. Plan discussed with patient in detail, all questions answered.
[2017-03-27 08:39] LABS: ALBUMIN 3.6 g/dl (3.4-5.0); ALK PHOS 97 U/L (45-117); ANION GAP 9 (8-16); BILIRUBIN,TOTAL 0.5 mg/dL (0.2-1.0); CALCIUM 7.5 mg/dL (8.5-10.1); CO2 39 mmol/L (21-32); GLUCOSE,RANDOM 168 mg/dL (74-106); MAGNESIUM 2.3 mg/dL (1.8-2.4); PHOSPHOROUS 5.7 mg/dL (2.5-4.9); SGOT/AST 24 U/L (15-37); SGPT/ALT 59 U/L (12-78); TOT PROT 7.3 g/dl (6.4-8.2)
[2017-03-27] MEDS: FERROUS SO4 325 MG TABLET (FP) PO SCH ×2 (09:17→18:05)
[2017-03-27] MEDS: BUDESONIDE/FORMETEROL FUMARATE 160/4.5 mcg INHALER IH SCH ×2 (10:52→21:27)
[2017-03-27] MEDS: methylPREDNISolone NA SUCC 40 MG/1 ML VIAL IVPUSH SCH (10:53)
[2017-03-27] MEDS: CALCIUM CARBONATE 650 MG TABLET PO SCH ×2 (10:55→21:27)
[2017-03-27] MEDS: HYDROCHLOROTHIAZIDE 25 MG TABLET (FP) PO SCH (10:55)
[2017-03-27] MEDS: AZITHROMYCIN 500 MG TABLET PO SCH (10:56)
[2017-03-27] MEDS: QUINAPRIL HCL 40 MG TABLET (FP) PO SCH (10:57)
[2017-03-27 11:14] LABS: ARTERIAL BLD GAS O2 SATURATION 83.6 % (90-98.9); ARTERIAL BLOOD GAS HCO3 40.1 meq/L (22-26); ARTERIAL BLOOD GAS PO2 50.9 mmHg (80-100); ARTERIAL BLOOD GAS pH 7.44 (7.35-7.45)
[2017-03-27 11:17] LABS: ALLENS TEST POSITIVE; ART PUNCT SITE RIGHT RADIAL; PT. ON O2? NO; TYPE OF O2 ROOM AIR
--- NOTE | 2017-03-27 11:26 | PN ---
Progress Note (short form) - Note Progress Note: PULMONARY States breathing continues to slowly improve. +nonproductive cough, less wheezing. Peak flow 100 this AM Last Vital Signs Temp Pulse Resp BP Pulse Ox 97.6 F 89 20 115/64 94 L 03/27/17 06:00 03/27/17 06:00 03/27/17 06:00 03/27/17 06:00 03/27/17 06:00 Gen: NAD at rest Heart: tachycardic, regular Lung: distant breath sounds, no wheezes appreciated Abd: soft, obese Ext: no edema CBC, BMP 03/26/17 07:00 03/27/17 07:30 Active Medications Albuterol Sulfate (Ventolin 0.083% Nebulizer Soln -) 1 amp NEB Q1H PRN PRN Reason: SHORT OF BREATH/WHEEZING Albuterol/Ipratropium (Duoneb -) 1 amp NEB QIDR [facility] Last Admin: 03/27/17 06:44 Dose: 1 amp Azithromycin (Azithromycin) 500 mg PO DAILY [facility] Stop: 03/28/17 10:01 Last Admin: 03/27/17 10:56 Dose: 500 mg Budesonide/Formoterol Fumarate (Symbicort 160/4.5mcg -) 1 puff IH BID [facility] Last Admin: 03/27/17 10:52 Dose: 1 puff Calcium Carbonate (Calcium Carbonate -) 650 mg PO BID [facility] Last Admin: 03/27/17 10:55 Dose: 650 mg Diltiazem HCl (Cardizem Cd -) 300 mg PO DAILY [facility] Last Admin: 03/27/17 10:57 Dose: 300 mg Docusate Sodium (Colace -) 100 mg PO DAILY PRN PRN Reason: CONSTIPATION Ferrous Sulfate (Feosol -) 325 mg PO BIDWM [facility] Last Admin: 03/27/17 09:17 Dose: 325 mg Heparin Sodium (Porcine) (Heparin -) 5,000 unit SQ TID [facility] Last Admin: 03/27/17 06:43 Dose: 5,000 unit Hydrochlorothiazide (Hctz -) 25 mg PO DAILY [facility] Last Admin: 03/27/17 10:55 Dose: 25 mg Insulin Aspart (Novolog Vial Sliding Scale -) 1 vial SQ ACHS [facility] PRN Reason: Protocol Last Admin: 03/27/17 06:43 Dose: 2 units Insulin Detemir (Levemir Vial) 5 units SQ HS [facility] Last Admin: 03/26/17 22:35 Dose: 5 units Methylprednisolone Sodium Succinate (Solu-Medrol -) 40 mg IVPUSH Q12H [facility] Last Admin: 03/27/17 10:53 Dose: 40 mg Montelukast Sodium (Singulair -) 10 mg PO HS [facility] Last Admin: 03/26/17 22:34 Dose: 10 mg Quinapril HCl (Accupril -) 40 mg PO DAILY [facility] Last Admin: 03/27/17 10:57 Dose: 40 mg Senna (Senna -) 1 tab PO HS PRN PRN Reason: CONSTIPATION A/P Acute Asthma Exacerbation Acute on Chronic Hypoxic and Hypercapneic Respiratory Failure Acute Bronchitis Morbid Obesity - agree with medrol taper, can change steroids to PO prednisone 60mg daily - inhaled bronchodilators standing and PRN - O2 to keep SpO2 >90% - azithromycin - singulair - monitor peak flow - DVT prophylaxis - check ABG when ready for discharge, may qualify for trilogy device
[2017-03-27] MEDS ORDERED: predniSONE 20 MG TABLET (UD) PO ONE (11:39)
--- NOTE | 2017-03-27 16:33 | PN ---
Physical Exam: SUBJECTIVE: Patient seen and examined. Doing well, states she feels much better , improved breathing w/ ambulation. OBJECTIVE: Vital Signs Period Temp Pulse Resp BP Sys/Muniz Pulse Ox Last 24 Hr 97.6 F-98.4 F 58-104 20-20 103-154/64-93 94-94 GEN: AAOx3, NAD, Obese, not in respiratory distress HEENT: PERRLA, EOMi CV: S1, S2, RRR LUNG: Expiratory wheezes ABD: Soft, obese, NT, ND MSK: No pitting edema Active Medications Generic Name Dose Route Start Last Admin Trade Name Freq PRN Reason Stop Dose Admin Albuterol Sulfate 1 amp 03/24/17 13:27 Ventolin 0.083% Nebulizer Soln - NEB Q1H PRN SHORT OF BREATH/WHEEZING Albuterol/Ipratropium 1 amp 03/24/17 00:00 03/27/17 12:40 Duoneb - NEB 1 amp QIDR ALICJA Administration Azithromycin 500 mg 03/26/17 10:00 03/27/17 10:56 Azithromycin PO 03/28/17 10:01 500 mg DAILY ALICJA Administration Budesonide/Formoterol Fumarate 1 puff 03/23/17 22:00 03/27/17 10:52 Symbicort 160/4.5mcg - IH 1 puff BID ALICJA Administration Calcium Carbonate 650 mg 03/24/17 10:00 03/27/17 10:55 Calcium Carbonate - PO 650 mg BID ALICJA Administration Diltiazem HCl 300 mg 03/24/17 10:00 03/27/17 10:57 Cardizem Cd - PO 300 mg DAILY ALICJA Administration Docusate Sodium 100 mg 03/24/17 14:29 Colace - PO DAILY PRN CONSTIPATION Ferrous Sulfate 325 mg 03/24/17 17:30 03/27/17 09:17 Feosol - PO 325 mg BIDWM ALICJA Administration Heparin Sodium (Porcine) 5,000 unit 03/23/17 22:00 03/27/17 06:43 Heparin - SQ 5,000 unit TID ALICJA Administration Hydrochlorothiazide 25 mg 03/24/17 14:45 03/27/17 10:55 Hctz - PO 25 mg DAILY ALICJA Administration Insulin Aspart 1 vial 03/25/17 07:47 03/27/17 06:43 Novolog Vial Sliding Scale - SQ 2 units ACHS ALICJA Administration Protocol Insulin Detemir 5 units 03/25/17 22:00 03/26/17 22:35 Levemir Vial SQ 5 units HS ALICJA Administration Montelukast Sodium 10 mg 03/23/17 23:15 03/26/17 22:34 Singulair - PO 10 mg HS ALICJA Administration Prednisone 60 mg 03/28/17 10:00 Deltasone - PO DAILY ALICJA Quinapril HCl 40 mg 03/24/17 15:00 03/27/17 10:57 Accupril - PO 40 mg DAILY ALICJA Administration Senna 1 tab 03/24/17 14:29 Senna - PO HS PRN CONSTIPATION ASSESSMENT/PLAN: 42 yo F with pmh of severe asthma, 2 admissions in past 5 yrs, no intubations, 2014 admission for CAP, PE and asthma exacerbation, HTN, DM, and morbid obesity admitted for acute hypoxic respiratory failure. # Acute Hypoxic Respiratory Failure - 2/2 COPD - Likely 2/2 COPD and exacerbation. Still wheezes, but improved air intake. Titrate steroids down to 60 daily. Already got IV 40 Methylpred this AM, will give 20mg PO prednisone now, total 60mg PO. Continue Nebs Standing + PRN. Symbicort BID. Singulair 10 HS. BiPAP PRN + night - Still hypoxic with treatments, will get CTA to assess for chronic PEs and lung parenychyma. - Superimposed CAP is less likely, if continues to be afebrile, will d/c antibiotics. Currently on Azithromycin 500 daily + Rocephin 1 daily # COPD - Diagnosed as per PFTs. Continue BiPAP as needed, apply for Trilogy # JENNIFER - Diagnosed with sleep study. Continue nightly BiPAP # HTN Urgency - Resolved. Patient was discharged on 3 home meds last hospitalization, but did not continue them at home. Will continue Accupril 40 daily, HCTZ 25 daily, and Cardizem 300 daily # NIDDM - A1C 6.5. Hold home Metformin, Continue BGM + ISS ACHS + add Levemir 5 as patient is on steroids # Hypocalcemia - Continue home calcium supplements # FEN - No IVF, elec wnl, sodium/diabetic diet # PPX - HSQ TID, No GI, PT ordered # Dispo - Continue medrol taper, now PO. Doing well. Dr Riojas recommends trilogy machine. CM aware. Repeat ABG ordered, machine being ordered. d/w Dr Shayne Garcia MD - PGY1 Resident Internal Medicine Visit type - Emergency Visit Emergency Visit: No - New Patient This patient is new to me today: No - Critical Care Critical Care patient: No - Discharge Referral Referred to [facility] No
[2017-03-27] MEDS: MONTELUKAST NA 10 MG TABLET PO SCH (21:27)
[2017-03-27] MEDS: INSULIN DETEMIR 100 UNITS/ML MDV SQ SCH (21:29)
[2017-03-27] MEDS ORDERED: INSULIN (NOVOLOG) ASPART 100 UNITS/ML 10ML VIAL ONE (21:31)
[2017-03-28 05:58] VITALS: TEMP 98.1
[2017-03-28] MEDS: ALBUTEROL SO4 2.5/IPRATROPIUM 0.5 INH SOL 3 ML VIAL.NEB. NEB SCH ×3 (06:10→11:45)
[2017-03-28] MEDS ORDERED: INSULIN (NOVOLOG) ASPART 100 UNITS/ML 10ML VIAL ONE (06:25)
[2017-03-28] MEDS: HEPARIN NA (PORCINE) 5,000 UNITS/ML 1ML VIAL SQ SCH ×2 (06:26→14:33)
[2017-03-28] MEDS: INSULIN SLIDING SCALE (NOVOLOG) 1 VIAL SQ SCH ×2 (06:27→12:22)
--- NOTE | 2017-03-28 07:53 | PN ---
Physical Exam: SUBJECTIVE: Patient seen and examined. Doing well. Breathing better. Now on 3L O2 and satting high 90s. Patient informed about negative CTA findings. Informed patient that she needs to continue usnig O2 at home. OBJECTIVE: Vital Signs Period Temp Pulse Resp BP Sys/Muniz Pulse Ox Last 24 Hr 97.9 F-98.1 F 90-104 18-20 145-156/80-93 93-95 GEN: AAOx3, NAD, Obese, not in respiratory distress HEENT: PERRLA, EOMi CV: S1, S2, RRR LUNG: Expiratory wheezes ABD: Soft, obese, NT, ND MSK: No pitting edema Active Medications Generic Name Dose Route Start Last Admin Trade Name Freq PRN Reason Stop Dose Admin Albuterol Sulfate 1 amp 03/24/17 13:27 Ventolin 0.083% Nebulizer Soln - NEB Q1H PRN SHORT OF BREATH/WHEEZING Albuterol/Ipratropium 1 amp 03/24/17 00:00 03/28/17 06:10 Duoneb - NEB 1 amp QIDR ALICJA Administration Azithromycin 500 mg 03/26/17 10:00 03/27/17 10:56 Azithromycin PO 03/28/17 10:01 500 mg DAILY ALICJA Administration Budesonide/Formoterol Fumarate 1 puff 03/23/17 22:00 03/27/17 21:27 Symbicort 160/4.5mcg - IH 1 puff BID ALICJA Administration Calcium Carbonate 650 mg 03/24/17 10:00 03/27/17 21:27 Calcium Carbonate - PO 650 mg BID ALICJA Administration Diltiazem HCl 300 mg 03/24/17 10:00 03/27/17 10:57 Cardizem Cd - PO 300 mg DAILY ALICJA Administration Docusate Sodium 100 mg 03/24/17 14:29 Colace - PO DAILY PRN CONSTIPATION Ferrous Sulfate 325 mg 03/24/17 17:30 03/27/17 18:05 Feosol - PO 325 mg BIDWM ALICJA Administration Heparin Sodium (Porcine) 5,000 unit 03/23/17 22:00 03/28/17 06:26 Heparin - SQ 5,000 unit TID ALICJA Administration Hydrochlorothiazide 25 mg 03/24/17 14:45 03/27/17 10:55 Hctz - PO 25 mg DAILY ALICJA Administration Insulin Aspart 1 vial 03/25/17 07:47 03/28/17 06:27 Novolog Vial Sliding Scale - SQ 2 units ACHS ALICJA Administration Protocol Insulin Detemir 5 units 03/25/17 22:00 03/27/17 21:29 Levemir Vial SQ 5 units HS ALICJA Administration Montelukast Sodium 10 mg 03/23/17 23:15 03/27/17 21:27 Singulair - PO 10 mg HS ALICJA Administration Prednisone 60 mg 03/28/17 10:00 Deltasone - PO DAILY ALICJA Quinapril HCl 40 mg 03/24/17 15:00 03/27/17 10:57 Accupril - PO 40 mg DAILY ALICJA Administration Senna 1 tab 03/24/17 14:29 Senna - PO HS PRN CONSTIPATION ASSESSMENT/PLAN: 42 yo F with pmh of severe asthma, 2 admissions in past 5 yrs, no intubations, 2014 admission for CAP, PE and asthma exacerbation, HTN, DM, and morbid obesity admitted for acute hypoxic respiratory failure. # Acute Hypoxic Respiratory Failure - 2/2 COPD - Likely 2/2 COPD/Asthma exac. Improved air intake. Less O2 need. Continue steroid taper. 60 daily Day 2. Continue Nebs standing + PRN + Singulair + BiPAP PRN. CTA neg for PE. Can d/c today, awaiting approval for Trilogy # COPD - Diagnosed as per PFTs. Continue BiPAP as needed, applied for Trilogy # JENNIFER - Diagnosed with sleep study. Continue nightly BiPAP # HTN Urgency - Resolved. Patient was discharged on 3 home meds last hospitalization, but did not continue them at home. Will continue Accupril 40 daily, HCTZ 25 daily, and Cardizem 300 daily # NIDDM - A1C 6.5. Hold home Metformin, Continue BGM + ISS ACHS + add Levemir 5 as patient is on steroids # Hypocalcemia - Continue home calcium supplements # FEN - No IVF, elec wnl, sodium/diabetic diet # PPX - HSQ TID, No GI, Walked 150 feet w/ PT # Dispo - Patient doing much better, can d/c home today. d/w Dr Quiros and Dr Shine Garcia MD - PGY1 Resident Internal Medicine Visit type - Emergency Visit Emergency Visit: No - New Patient This patient is new to me today: No - Critical Care Critical Care patient: No - Discharge Referral Referred to [facility] No
[2017-03-28] MEDS: FERROUS SO4 325 MG TABLET (FP) PO SCH (08:07)
[2017-03-28 09:45] LABS: ANION GAP 6 (8-16); CO2 41 mmol/L (21-32); CREATININE 0.8 mg/dL (0.55-1.02); GLUCOSE,RANDOM 139 mg/dL (74-106)
[2017-03-28] MEDS ORDERED: predniSONE 20 MG TABLET (UD) PO SCH (10:00)
[2017-03-28] MEDS: QUINAPRIL HCL 40 MG TABLET (FP) PO SCH (11:00)
[2017-03-28] MEDS: AZITHROMYCIN 500 MG TABLET PO SCH (11:01)
[2017-03-28] MEDS: CALCIUM CARBONATE 650 MG TABLET PO SCH (11:01)
[2017-03-28] MEDS: BUDESONIDE/FORMETEROL FUMARATE 160/4.5 mcg INHALER IH SCH (11:02)
[2017-03-28] MEDS: HYDROCHLOROTHIAZIDE 25 MG TABLET (FP) PO SCH (11:02)
--- NOTE | 2017-03-28 12:51 | PN ---
Progress Note (short form) - Note Progress Note: PULMONARY States breathing continues to slowly improve. +nonproductive cough, less wheezing. Trilogy device being arranged. Last Vital Signs Temp Pulse Resp BP Pulse Ox 98.1 F 96 H 18 137/87 95 03/28/17 05:57 03/28/17 10:13 03/28/17 09:00 03/28/17 09:00 03/28/17 10:13 Gen: NAD at rest Heart: tachycardic, regular Lung: distant breath sounds, no wheezes appreciated Abd: soft, obese Ext: no edema CBC, BMP 03/26/17 07:00 03/28/17 07:45 Active Medications Albuterol Sulfate (Ventolin 0.083% Nebulizer Soln -) 1 amp NEB Q1H PRN PRN Reason: SHORT OF BREATH/WHEEZING Albuterol/Ipratropium (Duoneb -) 1 amp NEB QIDR [facility] Last Admin: 03/28/17 11:45 Dose: 1 amp Budesonide/Formoterol Fumarate (Symbicort 160/4.5mcg -) 1 puff IH BID [facility] Last Admin: 03/28/17 11:02 Dose: 1 puff Calcium Carbonate (Calcium Carbonate -) 650 mg PO BID [facility] Last Admin: 03/28/17 11:01 Dose: 650 mg Diltiazem HCl (Cardizem Cd -) 300 mg PO DAILY [facility] Last Admin: 03/28/17 11:01 Dose: 300 mg Docusate Sodium (Colace -) 100 mg PO DAILY PRN PRN Reason: CONSTIPATION Ferrous Sulfate (Feosol -) 325 mg PO BIDWM [facility] Last Admin: 03/28/17 08:07 Dose: 325 mg Heparin Sodium (Porcine) (Heparin -) 5,000 unit SQ TID [facility] Last Admin: 03/28/17 06:26 Dose: 5,000 unit Hydrochlorothiazide (Hctz -) 25 mg PO DAILY [facility] Last Admin: 03/28/17 11:02 Dose: 25 mg Insulin Aspart (Novolog Vial Sliding Scale -) 1 vial SQ ACHS [facility] PRN Reason: Protocol Last Admin: 03/28/17 12:22 Dose: Not Given Insulin Detemir (Levemir Vial) 5 units SQ HS [facility] Last Admin: 03/27/17 21:29 Dose: 5 units Montelukast Sodium (Singulair -) 10 mg PO HS [facility] Last Admin: 03/27/17 21:27 Dose: 10 mg Prednisone (Deltasone -) 60 mg PO DAILY [facility] Last Admin: 03/28/17 11:01 Dose: 60 mg Quinapril HCl (Accupril -) 40 mg PO DAILY [facility] Last Admin: 03/28/17 11:00 Dose: 40 mg Senna (Senna -) 1 tab PO HS PRN PRN Reason: CONSTIPATION A/P Acute Asthma Exacerbation Acute on Chronic Hypoxic and Hypercapneic Respiratory Failure Acute Bronchitis Morbid Obesity - prednisone taper as outpt - inhaled bronchodilators standing and PRN - O2 to keep SpO2 >90% - azithromycin - singulair - monitor peak flow - DVT prophylaxis - agree with trilogy device placement
--- NOTE | 2017-03-28 13:04 | PN ---
Teaching Attending Note Name of Resident: Benny Garcia ATTENDING PHYSICIAN STATEMENT I saw and evaluated the patient. I reviewed the resident's note and discussed the case with the resident. I agree with the resident's findings and plan as documented. SUBJECTIVE:asymptomatic. denies Cp, SOB, fever, chills, N/V/C/D, cough OBJECTIVE: Last Vital Signs Temp Pulse Resp BP Pulse Ox 98.1 F 96 H 18 137/87 95 03/28/17 05:57 03/28/17 10:13 03/28/17 09:00 03/28/17 09:00 03/28/17 10:13 General NAD CV S1 S2 RRR no murmur/rub/gallop Lungs decreased breath sounds throughout no wheezing Extremities 1+ pitting edema ASSESSMENT AND PLAN: 42 yo F with pmh of severe asthma, 3 admissions in past 5 yrs, no intubations, 2014 admission for CAP, PE and asthma exacerbation, HTN, and morbid obesity admitted with acute hypoxic respiratory failure, acute asthma exacerbation and possible RLL infiltrate. 1. Acute on chronic hypoxic respiratory distress- clinically improved. transitioned to prednisone po today. CTPE negative for PE. qualified for triology device at home. as per pulm can d/c home and will have device delivered once insurance approved. on slow prednisone taper. complete abx course yesterday. will need close pulmonary monitoring 2. RLL PNA- suspected. improved. afebrile. leukocytosis trended down. completed abx yesterday. no further indication for abx therapy. flu and RSV negative 3. morbid obesity- BMI 44.8. refused bariatric surgery wants to attempt diet and excercise. counseled on need for weight loss and excercise. increased mortality assoc th obesity 4. Hypocalcemia- corrected ca 7.8. on supplements 5. HTN- controlled 6. DM- controlled. re-start home medications 7. d/c home. counseled importance of medication compliance, follow up and weight loss. verbalized understanding and agreement iwth plan
[2017-03-28 14:47] VITALS: BP 156/82; PULSE 93
--- NOTE | 2017-03-28 15:53 | DS ---
Physical Exam: SUBJECTIVE: Patient seen and examined. Doing well. Walking to the bathroom without SOB. OBJECTIVE: Vital Signs Period Temp Pulse Resp BP Sys/Muniz Pulse Ox Last 24 Hr 97.9 F-98.1 F 89-96 18-20 137-156/80-89 93-95 PHYSICAL EXAM GEN: AAOx3, NAD, Obese, not in respiratory distress HEENT: PERRLA, EOMi CV: S1, S2, RRR LUNG: Expiratory wheezes ABD: Soft, obese, NT, ND MSK: No pitting edema LABS Laboratory Last Values WBC 12.9 K/mm3 (4.0-10.0) H 03/26/17 07:00 RBC 3.90 M/mm3 (3.60-5.2) 03/26/17 07:00 Hgb 10.0 GM/dL (10.7-15.3) L 03/26/17 07:00 Hct 32.1 % (32.4-45.2) L 03/26/17 07:00 MCV 82.4 fl (80-96) 03/26/17 07:00 MCH 25.7 pg (25.7-33.7) 03/26/17 07:00 MCHC 31.2 g/dl (32.0-36.0) L 03/26/17 07:00 RDW 16.9 % (11.6-15.6) H 03/26/17 07:00 Plt Count 241 K/MM3 (134-434) 03/26/17 07:00 MPV 9.2 fl (7.5-11.1) 03/26/17 07:00 Neutrophils % 93.3 % (42.8-82.8) H 03/26/17 07:00 Lymphocytes % 4.6 % (8-40) L D 03/26/17 07:00 Monocytes % 2.0 % (3.8-10.2) L 03/26/17 07:00 Eosinophils % 0.0 % (0-4.5) 03/26/17 07:00 Basophils % 0.1 % (0-2.0) D 03/26/17 07:00 Anticoagulation Therapy Y 03/24/17 17:20 Puncture Site Right radial 03/27/17 11:06 ABG pH 7.44 (7.35-7.45) 03/27/17 11:06 ABG pCO2 at Pt Temp 60.6 mmHg (35-45) H* 03/27/17 11:06 ABG pO2 at Pt Temp 50.9 mmHg (80-100) L 03/27/17 11:06 ABG HCO3 40.1 meq/L (22-26) H* 03/27/17 11:06 ABG O2 Sat (Measured) 83.6 % (90-98.9) L 03/27/17 11:06 ABG O2 Content 11.5 % vol (15-22) L 03/27/17 11:06 ABG Base Excess 14.0 meq/l (-2-2) H 03/27/17 11:06 Lukas Test Positive 03/27/17 11:06 O2 Delivery Device Room air 03/27/17 11:06 Oxygen Flow Rate No 03/27/17 11:06 Vent Mode Y 03/24/17 17:20 Vent Rate Y 03/24/17 17:20 Mechanical Rate Y 03/24/17 17:20 Pressure Support Vent Y 03/24/17 17:20 Sodium 138 mmol/L (136-145) 03/28/17 07:45 Potassium 3.3 mmol/L (3.5-5.1) L 03/28/17 07:45 Chloride 91 mmol/L (98-107) L 03/28/17 07:45 Carbon Dioxide 41 mmol/L (21-32) H 03/28/17 07:45 Anion Gap 6 (8-16) L 03/28/17 07:45 BUN 36 mg/dL (7-18) H 03/28/17 07:45 Creatinine 0.8 mg/dL (0.55-1.02) 03/28/17 07:45 Creat Clearance w eGFR > 60 (>60) 03/27/17 07:30 POC Glucometer 160 UNITS (80-120) 03/28/17 11:20 Random Glucose 139 mg/dL (74-106) H 03/28/17 07:45 Hemoglobin A1c % 6.5 % (4.8-6.0) H D 03/24/17 08:00 Calcium 7.0 mg/dL (8.5-10.1) L 03/28/17 07:45 Phosphorus 5.7 mg/dL (2.5-4.9) H 03/27/17 07:30 Magnesium 2.3 mg/dL (1.8-2.4) 03/27/17 07:30 Total Bilirubin 0.5 mg/dL (0.2-1.0) D 03/27/17 07:30 AST 24 U/L (15-37) D 03/27/17 07:30 ALT 59 U/L (12-78) D 03/27/17 07:30 Alkaline Phosphatase 97 U/L (45-117) 03/27/17 07:30 Total Protein 7.3 g/dl (6.4-8.2) 03/27/17 07:30 Albumin 3.6 g/dl (3.4-5.0) 03/27/17 07:30 Urine HCG, Qual Negative 03/27/17 13:40 HOSPITAL COURSE: Date of Admission:03/23/17 Date of Discharge: 03/28/17 Ms. Pappas is a 42yo F with a PMHx of severe asthma/COPD (on continuous home O2 3 -4L), with 4 admissions in the past 5 years, no intubations, morbid obesity, possible OHS, who presented with 5 days of progressively worsening shortness of breath and chest tightness. She has increased the usage of her albuterol inhaler. She endorses sick contacts, exposure to chemicals ?incense. She was diagnosed with having an asthma exacerbation. In the ER she was able to speak in full sentences. Her O2 sat was originally 70 on RA, which improved with 4-6L of O2 NC. Due to increased work of breathing, the patient was placed on BiPAP 100%. She also presented in hypertensive urgency with BP of 198/107. She states that she had not taken her home anti- hypertensives because she was told by her Primary Care doctor that she did not need them. We placed her back on the medications she was discharged with the last time she was in the hospital (Accupril, Cardizem, HCTz). She was placed on IV Methylprednisolone and Singulair was added to her regimen. She improved slowly with a prednisone taper, requiring less oxygen each day. She used BiPAP at night and as needed. She was followed by Pulmonology throughout her stay. There was a thought that the patient had underlying Community Acquired Pneumonia based on her chest x-ray. However, the patient was relatively asymptomatic. We covered her with a 6 day course of antibiotics, which were discontinued upon discharge. We sent an application for the Trilogy machine, which will hopefully be approved in a few days. I personally spoke to [place], the artist representative from [facility] (cell: [phone] / ) who states that he will get in contact with the patient when she is approved and set her up for the Trilogy machine in the next few days. The patient will also receive extra refills of her blood pressure medications. She will be sent home on a slow taper ending 04/13/17. She is aware of the hospital course and agrees with the plan to be discharged home with close followup. Minutes to complete discharge: 45 Discharge Summary Reason For Visit: ASTHMA WITH ACUTE EXACERBATION Current Active Problems Acute respiratory failure with hypoxia (Acute) Asthma (Acute) Hypoxia (Acute) Condition: Improved - Instructions Diet, Activity, Other Instructions: RECOMMENDATIONS - You were admitted because of a COPD/Asthma exacerbation. We treated you with steroids and you improved. - You need to continue the steroid taper at home. Please follow the instructions below - You have home oxygen and need to use it continuously. - We applied for a Trilogy machine, the representatives from [facility] will call you and set you up with one. Their phone number is . - Please avoid sedatives or narcotics that can affect your breathing - Please use your inhalers if you are feeling short of breath. - It is very important that you followup with your Silk [facility]er Dr Briseno. Please make an appointment with him MEDICATION CHANGES - START Montelukast (Singulair) 10mg tablets, one tablet at night - START Prednisone Taper 60mg daily for 1 day 50mg daily for 3 days 40mg daily for 3 days 30mg daily for 3 days 20mg daily for 3 days 10mg daily for 3 days - START taking the Blood Pressure Medications, previously prescribed to you: Accupril 40 daily, HCTZ 25 daily, Cardizem 300 daily. FOLLOWUPS: - Dr. Lorenzo (Primary Care Doctor) - followup in 2 weeks - Dr. Briseno ([facility]) - followup in 2 weeks - Someone from [facility] ( ) will call you when you are approved for the Trilogy machine, and send one to your house Referrals: David Lorenzo MD [Primary Care Provider] - 2 Weeks Demarcus Briseno MD [Staff Physician] - 2 Weeks Disposition: HOME - Home Medications Comprehensive Discharge Medication List: Ambulatory Orders Albuterol 2.5/Ipratropium 0.5 [Duoneb -] 1 amp NEB Q4HPO #1 inhaler 11/16/16 Albuterol 0.083% Nebulizer Kaitlyn [Ventolin 0.083% Nebulizer Soln -] 1 amp NEB Q4H PRN 03/24/17 Budesonide/Formeterol Fumarate [SYMBICORT 160/4.5mcg -] 1 puff IH BID 03/24/17 Calcium Carbonate 650 mg PO BID 03/24/17 Diltiazem HCl [Cartia Xt] 300 mg PO DAILY 03/24/17 Docusate Sodium [Colace -] 100 mg PO DAILY 03/24/17 Ferrous Sulfate [Feosol] 325 mg PO BID 03/24/17 Hydrochlorothiazide [Hctz -] 25 mg PO DAILY 03/24/17 Metformin HCl 500 mg PO BID 03/24/17 Quinapril HCl [Accupril -] 40 mg PO DAILY 03/24/17 Sennosides [Senna -] 1 tab PO HS 03/24/17 Montelukast Na [Singulair -] 10 mg PO HS #30 tablet 03/28/17 Prednisone [Deltasone -] See Taper PO DAILY #51 tablet 03/28/17 This patient is new to me today: No Emergency Visit: No Critical Care patient: No - Discharge Referral Referred to [facility] No
== END 2017-03-28 16:00 | disposition home or self-care (01) | DRG 133 ==
LOC: JER 15:56 → JERBED 20:51 → J6S 03-24 00:17
PROVIDERS: ADMIT Internal Medicine; ATTEND Internal Medicine
PROC: 5A09557 Assistance with Respiratory Ventilation, Greater than 96 Consecutive Hours, Continuous Positive Airway Pressure (ICD-10-PCS; principal; 2017-03-23)
DX: J96.21 Acute and chronic respiratory failure with hypoxia (principal); J44.1 Chronic obstructive pulmonary disease with (acute) exacerbation; J45.901 Unspecified asthma with (acute) exacerbation; E66.01 Morbid (severe) obesity due to excess calories; Z68.41 Body mass index [BMI] 40.0-44.9, adult; E11.9 Type 2 diabetes mellitus without complications; E83.51 Hypocalcemia; J44.0 Chronic obstructive pulmonary disease with (acute) lower respiratory infection; J20.9 Acute bronchitis, unspecified; I16.0 Hypertensive urgency; J96.22 Acute and chronic respiratory failure with hypercapnia; D72.829 Elevated white blood cell count, unspecified; G47.33 Obstructive sleep apnea (adult) (pediatric); E87.2 Acidosis; J18.9 Pneumonia, unspecified organism
CPT/HCPCS: 36415; 36600; 71010-TC; 71275-TC; 80048; 80053; 82803; 83036; 83735; 84100; 84703; 85025; 87633; 87804; 93005; 93010; 94150; 94640; 94660; 94761; 97116-GP; 97161-GP; 99284-25; J1644

== ENCOUNTER → 2018-09-03 | Day surgery (SDC) | payer OTHER ==
--- NOTE | 2018-09-07 15:59 | PATH ---
Cytology Non-Gynecological Report Patient Name: NIKOLAS SALES Med. Rec. #: [id number] /Age/Gender: 1975 (Age: 43) / F Account: [id number] Location: RADIOLOGY INTER Taken: 09/03/2018 Received: 09/03/2018 Reported: 09/07/2018 Physicians: Oj De La Rosa M.D. Specimen(s) Received THYROID FNA RIGHT LOBE Clinical History Right thyroid lobe, 3.11 x 1.93 x 2.66 cm Final Diagnosis THYROID, RIGHT LOBE, FINE NEEDLE ASPIRATION: SATISFACTORY FOR EVALUATION. BETHESDA CLASS II: BENIGN. CYTOLOGIC FINDINGS ARE CONSISTENT WITH A BENIGN FOLLICULAR NODULE WITH POST-HEMORRHAGIC CHANGE. FEW FOLLICULAR CELLS WITH FOCAL REACTIVE AND METAPLASTIC CHANGES IN A BACKGROUND OF SOME COLLOID, RARE LYMPHOCYTES, AND NUMEROUS HEMOSIDERIN-LADEN MACROPHAGES. Electronically Signed Vicky Gleason M.D. Gross Description Received are eight direct smears, four of which are air-dried and Diff-Quik stained, and four of which are alcohol fixed and Pap stained. Also received is 20 ml of bloody formalin from which one cellblock is prepared.
== END | disposition home or self-care (01) ==
LOC: JRADIR 09:15
PROVIDERS: ATTEND Internal Medicine Endocrinology, Diabetes & Metabolism
PROC: 0G9K3ZX Drainage of Thyroid Gland, Percutaneous Approach, Diagnostic (ICD-10-PCS; principal; 2018-09-03)
DX: E04.1 Nontoxic single thyroid nodule (principal)
CPT/HCPCS: 76942